=== PATIENT | female | born 1965 | race Caucasian/White ===

== ENCOUNTER → 2019-11-20 11:45 | Outpatient (BNVA) | payer BC, SELFPAY | PROVIDERS: Family Provider Family Medicine; PCP Family Medicine; Visit Provider Nurse Practitioner | DX: F41.1 Generalized anxiety disorder (principal); F41.0 Panic disorder [episodic paroxysmal anxiety]; F43.12 Post-traumatic stress disorder, chronic; F17.210 Nicotine dependence, cigarettes, uncomplicated; F90.1 Attention-deficit hyperactivity disorder, predominantly hyperactive type | CPT/HCPCS: 99213 ==

== ENCOUNTER → 2019-11-27 13:18 | Outpatient (BNVA) | payer BC, SELFPAY | PROVIDERS: Family Provider Family Medicine; PCP Family Medicine; Visit Provider Nurse Practitioner | DX: F43.12 Post-traumatic stress disorder, chronic (principal); F41.1 Generalized anxiety disorder; F41.0 Panic disorder [episodic paroxysmal anxiety]; F17.210 Nicotine dependence, cigarettes, uncomplicated | CPT/HCPCS: 90832; 99213 ==

== ENCOUNTER → 2020-02-15 07:50 | Outpatient (BNVA) | payer BC, SELFPAY | PROVIDERS: Family Provider Family Medicine; PCP Family Medicine; Visit Provider Nurse Practitioner | DX: F41.0 Panic disorder [episodic paroxysmal anxiety] (principal); F41.1 Generalized anxiety disorder; F43.12 Post-traumatic stress disorder, chronic; F17.210 Nicotine dependence, cigarettes, uncomplicated | CPT/HCPCS: 99213 ==

== ENCOUNTER → 2020-06-21 08:13 | Outpatient (BNVA) | payer BC, SELFPAY | PROVIDERS: Family Provider Family Medicine; PCP Family Medicine; Visit Provider Nurse Practitioner | DX: F43.12 Post-traumatic stress disorder, chronic (principal); F41.1 Generalized anxiety disorder; F41.0 Panic disorder [episodic paroxysmal anxiety]; F17.210 Nicotine dependence, cigarettes, uncomplicated | CPT/HCPCS: 99213 ==

== ENCOUNTER → 2020-08-18 08:33 | Outpatient (BNVA) | payer BC, SELFPAY | PROVIDERS: Family Provider Family Medicine; PCP Family Medicine; Visit Provider Nurse Practitioner | DX: F43.12 Post-traumatic stress disorder, chronic (principal); F41.1 Generalized anxiety disorder; F41.0 Panic disorder [episodic paroxysmal anxiety]; F17.210 Nicotine dependence, cigarettes, uncomplicated; F90.0 Attention-deficit hyperactivity disorder, predominantly inattentive type | CPT/HCPCS: 99214 ==

== ENCOUNTER 2020-10-21 17:32 | Emergency (ER) | payer OTHER, SELFPAY ==
[2020-10-21 17:41] VITALS: BP 177/91; PULSE 96; RESP 24; TEMP 36.9; O2SAT 100; BMI 20.5
--- NOTE | 2020-10-21 17:52 | XRR_ITS ---
PROCEDURE INFORMATION: Exam: XR Chest, 1 View Exam date and time: 10/21/2020 6:18 PM Age: 54 years old Clinical indication: Shortness of breath; Patient HX: SOB, pain in right lower ribs TECHNIQUE: Imaging protocol: XR of the chest Views: 1 view. Total images: 1 COMPARISON: No relevant prior studies available. FINDINGS: Lungs: COPD/chronic bronchitis/emphysema. No visible active interstitial or alveolar airspace disease. Pleural spaces: Unremarkable. No pleural effusion. No pneumothorax. Heart/Mediastinum: Unremarkable. No cardiomegaly. Bones/joints: Unremarkable. XR/XR chest 1V portable [id number] IMPRESSION: Nonacute.
--- NOTE | 2020-10-21 17:53 | ECG_ITS ---
[facility] Test Date: 2020-10-21 Pat Name: Angelita Villarreal Department: Room: Gender: Female Strickler Attendant: : 1965 Requested By: Allison Kapoor Order Number: [id number] Ezekiel MD: Manuel Berger M.D. Measurements Intervals [place] Rate: 94 P: 59 CT: 174 QRS: 84 QRSD: 85 T: 72 QT: 343 QTc: 429 Interpretive Statements SINUS RHYTHM POSSIBLE ANTERIOR MYOCARDIAL INFARCTION [30 ms Q WAVE IN V3/V4, OR R < 0.2 mV IN V4], OF INDETERMINATE AGE No previous ECG available for comparison Electronically Signed On 10-22-2020 10:54:11 GAMER by Manuel Berger M.D. [id number] f
--- NOTE | 2020-10-21 19:00 | W.ED.SOB ---
HPI - SOB/Dyspnea General: Chief Complaint: Shortness of Breath/Dyspnea Stated Complaint: DIFFICULTY BREATHING Time Seen by Provider: 10/21/20 18:43 Source: patient and family (spouse) Mode of arrival: ambulatory Limitations: other (memory loss) History of Present Illness: HPI Narrative: Pleasant 54-year-old female patient presents to the emergency department with her spouse due to shortness of breath. She reports cannot catch my breath , states has progressively worsened over the past 3 weeks. She reports nothing makes it better with exception of laying down when she goes to bed at night. She reports exercise or completing ADLs do not worsen the shortness of breath. She reports pain in the bilateral lower ribs. She denies trauma or injury. States suffered stroke of the brain several years ago, is taking Adderall secondary to memory loss and ADHD. She has poor historian and is present to help with history of present illness and health history. She reports difficulty catching her breath since child but states past 3 weeks has been different. Worsening shortness of breath symptoms and complains of chest pain. She denies nausea vomiting, states thyroid is abnormal and has not taken thyroid medication in several weeks secondary to side effects. She reports cough that is worse in the morning with production of dark green sputum, states cough through the day is not productive. She does smoke cigarettes but has cut back. She denies wheezing, states nothing helps with shortness of breath including albuterol and other steroid inhalers, Benadryl or nasal spray. She also reports rash that has been present to the abdomen and torso x3 weeks, no change of medication. She was evaluated by her primary care provider at [facility] was encouraged to come to the emergency department due to shortness of breath and complaints of chest pain. She states her primary care provider was concerned she may have a blood clot in her lung. MD elicited complaint: shortness of breath, cough and chest pain Context: other (rash) Timing: intermittent and progressively worsening Severity: moderate Exacerbating factors: nothing Relieving factors: other (resting in bed at night) Associated symptoms: Reports chest congestion, chest pain, cough and rash; Deny abdominal pain, diaphoresis, fever(s), nausea, orthopnea, syncope or vomiting Treatment prior to arrival: none Review of Systems General: Reports: 10 or more systems reviewed and unremarkable except in HPI and below Const: Reports: fatigue and malaise; Denies: fever(s), chills or diaphoresis Eyes: Denies: change in vision, blurry vision, eye discomfort or eye redness ENMT: Denies: throat pain, dental pain, halitosis, disequilibrium, nasal discharge or nasal congestion Card: Reports: chest pain; Denies: syncope or orthopnea Resp: Reports: dyspnea, productive cough, non-productive cough and chest congestion GI: Denies: abdominal pain, nausea, vomiting, dysphagia, diarrhea, constipation or pain on defecation : Denies: flank pain, difficulty voiding, dysuria, urinary urgency or urinary incontinence Musc: Reports: joint pain (bilateral knees) and joint stiffness (bilateral knees); Denies: neck pain or back pain Skin/Breast: Reports: rash and pruritus; Denies: skin tenderness, changing lesions or changes in skin color Neuro: Denies: headache(s), weakness in extremities or behavioral changes Psych: Reports: anxiety, panic attacks, memory loss and difficulty concentrating; Denies: depression, hopelessness, visual hallucinations, auditory hallucinations, suicidal ideation or homicidal ideation Sunny/Lymph: Denies: easy bruising PFSH ED PFSH: Medical History Attention-deficit hyperactivity disorder, predominantly inattentive type Generalized anxiety disorder Nicotine dependence, cigarettes, uncomplicated Panic disorder [episodic paroxysmal anxiety] Post-traumatic stress disorder, chronic Social History Smoking and tobacco status: current every day smoker cigarettes Packs smoked per day: 1.5 Years cigarettes smoked: 33 Quit status (tobacco): has tried quititng Number of times tried to quit tobacco: 1 Second hand smoke exposure: Yes Physical Exam Const: COMMON NORMALS: no acute distress, average body habitus, patient oriented x3, no limitations, healthy appearing, alert and well nourished EXAM LIMITATIONS: no altered mental status and no physical limitations GENERAL APPEARANCE: cooperative, comfortable, well kempt, well developed, anxious, well hydrated and other (noted taking in deep breaths intermittently); not ill appearing and not frail appearing NUTRITIONAL APPEARANCE: thin ORIENTATION/CONSCIOUSNESS: Yes awake, Yes oriented to person, Yes oriented to place and Yes oriented to time; not confused and not patient obtunded HENMT: COMMON NORMALS: normocephalic, atraumatic, Normal external nose present and moist oral mucous membranes HEAD & SCALP: normal to inspection, normocephalic and atraumatic FACE & SINUS: normal facial exam, sinuses nontender and face symmetric NOSE: Normal external nose present MOUTH: Normal oral and palatal mucosa present, lip normal and tongue normal; no drooling and no muffled voice THROAT: posterior oropharynx normal and uvula midline Eye: COMMON NORMALS: Equal, round and reactive pupils present and EOMs intact bilaterally GENERAL EYE: appearance normal, both eyes and all related structures PUPIL: Yes Equal, round and reactive pupils present Neck/C-Spine: COMMON NORMALS: full ROM and no lymphadenopathy GENERAL: Yes normal visual inspection and Yes trachea midline CERVICAL SPINE: Yes cervical ROM normal Lymph: LYMPHATIC: no lymphadenopathy noted Chest: COMMONS NORMALS: normal inspection of the chest and normal palpation of entire chest wall CHEST: No abnormal inspection of the chest and No localized rib tenderness with anteroposterior compression Resp: COMMON NORMALS: normal respiratory effort, No retractions, No use of accessory muscles and clear to auscultation bilaterally EFFORT & INSPECTION: Yes able to speak in complete sentences, Yes symmetric chest movement, No tachypneic, No respiratory distress, No pursed lip breathing, No labored, No Actively coughing and Yes other (takes deep breaths intermittently) AUSCULTATION: clear to auscultation bilaterally, no rhonchi, no wheezes and lung sounds not diminished Cardio: COMMON NORMALS: regular rate, regular rhythm, S1 normal heart sound present, S2 normal heart sound present and Peripheral pulses 2+ throughout PALPATION: normal PMI RATE: regular rate RHYTHM: regular rhythm HEART SOUNDS: S1 normal heart sound present and S2 normal heart sound present PERIPHERAL PULSES: Peripheral pulses 2+ throughout GI: COMMON NORMALS: Normal to inspection, nondistended, normoactive bowel sounds present, Soft to palpation and non-tender INSPECTION: Yes normal to inspection, No abdominal wall ecchymosis, No central obesity and No visible herniation PALPATION: Yes Soft to palpation : COMMON NORMALS: Yes no CVA tenderness BLADDER/KIDNEY EXAM: Yes no CVA tenderness Back/Pelvis: COMMON NORMALS: no CVA tenderness, thoracic and lumbar spine normal to inspection, no thoracic nor lumbar tenderness, thoraco-lumbar ROM normal and straight leg raise negative bilaterally Extremity: COMMON NORMALS: normal to inspection, full ROM, capillary refill normal, no joint enlargement, no clubbing, cyanosis or edema, no calf tenderness and no pedal edema GENERAL: Yes normal exam except as noted Neuro: COMMON NORMALS: patient oriented x3 and no focal motor deficits SENSORIUM/ORIENTATION: Yes alert, Yes oriented to person, Yes oriented to place and Yes oriented to time SPEECH: speech normal GAIT: Yes Normal gait present MOTOR EXAM: 5/5 motor strength present throughout and Pronator motor function not present Psych: COMMON NORMALS: mental status grossly normal, Normal thought process present and cooperative APPEARANCE: Yes well kempt ACTIVITY/MOTOR BEHAVIOR: Yes appropriate eye contact THOUGHT PROCESS: Normal thought process present Skin: COMMON NORMALS: turgor normal GENERAL SKIN EXAM: elasticity normal and turgor normal RASHES: rashes noted (flat macular rash to the torso and abdomen) HAIR: normal NAILS: normal Course Vital Signs: Vital signs: Vital Signs Temperature 98.5 F 10/21/20 17:41 Pulse Rate 85 10/21/20 21:58 Respiratory Rate 19 H 10/21/20 20:37 Blood Pressure 165/92 10/21/20 20:37 Pulse Oximetry 98 10/21/20 21:58 MDM - SOB/Dyspnea MDM Narrative: Medical decision making narrative: 54-year-old female patient presents to the emergency department for possible PE secondary to inability to catch her breath, she was sent to the ED by the recommendation of her primary care provider. CTA of the chest did not reveal pulmonary emboli or acute findings. Chest x-ray did note COPD/chronic bronchitis/emphysema, she continues to smoke. Troponin series without elevation, EKG without ST elevation or depression. Rashes noted upon exam and has been present for 3 weeks, Benadryl was administered, CRP and ESR within normal range; she stopped taking her thyroid medication secondary to side effects but also was taking antidepressants/antianxiety medication at that time in which she also stopped. TSH was noted to be abnormal, she was encouraged to take medication daily, new prescription was provided 50 mcg daily dose. Patient was administered Toradol for pain which stopped rib pain and episodes of deep breathing. I am suspicious patient has COPD with potential exacerbation; she states has never been diagnosed with COPD or chronic bronchitis, or denies previous PFT study. Patient was placed on prednisone with referral to dermatology due to rash, albuterol inhaler was not prescribed as she has this at home and states does not help. Differential Diagnosis: Shortness of Breath Differential Diagnosis: Likely acute exacerbation of chronic obstructive airways disease, community acquired pneumonia and pulmonary embolism Lab Data: Labs: Lab Results 10/21/20 10/21/20 10/21/20 Range/Units 19:00 19:00 19:00 WBC 8.2 (4.0-10.0) 10^3/ uL RBC 4.45 (4.1-5.3) 10^6/u L Hgb 13.9 (11.5-15.3) g/dL Hct 41.3 (37.0-47.0) % MCV 92.8 (81-99) fL MCH 31.2 (28.0-34.0) pg MCHC 33.7 (30.0-36.0) g/dL RDW 13.2 (12.1-15.1) % Plt Count 250 (130-400) 10^3/c mm MPV 9.1 (7.4-10.4) fL Neut % (Auto) 67.7 % Lymph % (Auto) 25.4 % Cameron % (Auto) 4.3 % Eos % (Auto) 1.5 % Baso % (Auto) 0.9 % Neut # (Auto) 5.52 (1.8-7.7) 10^3/u L Lymph # (Auto) 2.1 (0.8-4.8) 10^3/u L Cameron # (Auto) 0.4 (0.2-0.9) 10^3/u L Eos # (Auto) 0.1 (0.0-0.8) 10^3/u L Baso # (Auto) 0.1 (0.0-0.1) 10^3/u L Nucleated RBC % (a uto) 0 % Nucleated RBCs # 0.0 /100WBC ESR (0-15) mm/hr D-Dimer (0-0.59) ug/mIFE U Sodium 140 (136-145) mmol/L Potassium 3.6 (3.5-5.1) mmol/L Chloride 105 (98-107) mmol/L Carbon Dioxide 22 (22-29) mmol/L Anion Gap 16.6 (5-19) BUN 8 (6-20) mg/dL Creatinine 0.7 (0.5-0.9) mg/dL GFR Calculation 86.6 L (90-130) mL/min Glucose 79 (65-115) mg/dL Calculated Osmolal ity 287 (285-295) mOsm/k g Calcium 9.1 (8.5-10.5) mg/dL Total Bilirubin 0.5 (0.15-1.2) mg/dL AST 19 (0-32) U/L ALT 16 (0-33) U/L Alkaline Phosphata se 78 (35-105) IU/L Troponin T Baselin e 8 (0-10) ng/L Troponin T 120 Min [place] (0-10) ng/L Delta Troponin T (0-10) ABS# C-Reactive Protein 4.7 (0.0-4.9) mg/L Total Protein 6.9 (6.6-8.7) g/dL Albumin 4.6 (3.5-5.2) g/dL Globulin 2.3 (1.3-4.6) g/dL TSH 13.43 H (0.27-4.20) uIU/ mL Free T4 0.97 (0.82-1.77) ng/d L 10/21/20 10/21/20 10/21/20 Range/Units 19:00 19:00 21:00 WBC (4.0-10.0) 10^3/ uL RBC (4.1-5.3) 10^6/u L Hgb (11.5-15.3) g/dL Hct (37.0-47.0) % MCV (81-99) fL MCH (28.0-34.0) pg MCHC (30.0-36.0) g/dL RDW (12.1-15.1) % Plt Count (130-400) 10^3/c mm MPV (7.4-10.4) fL Neut % (Auto) % Lymph % (Auto) % Cameron % (Auto) % Eos % (Auto) % Baso % (Auto) % Neut # (Auto) (1.8-7.7) 10^3/u L Lymph # (Auto) (0.8-4.8) 10^3/u L Cameron # (Auto) (0.2-0.9) 10^3/u L Eos # (Auto) (0.0-0.8) 10^3/u L Baso # (Auto) (0.0-0.1) 10^3/u L Nucleated RBC % (a uto) % Nucleated RBCs # /100WBC ESR 9 (0-15) mm/hr D-Dimer 0.35 (0-0.59) ug/mIFE U Sodium (136-145) mmol/L Potassium (3.5-5.1) mmol/L Chloride (98-107) mmol/L Carbon Dioxide (22-29) mmol/L Anion Gap (5-19) BUN (6-20) mg/dL Creatinine (0.5-0.9) mg/dL GFR Calculation (90-130) mL/min Glucose (65-115) mg/dL Calculated Osmolal ity (285-295) mOsm/k g Calcium (8.5-10.5) mg/dL Total Bilirubin (0.15-1.2) mg/dL AST (0-32) U/L ALT (0-33) U/L Alkaline Phosphata se (35-105) IU/L Troponin T Baselin e (0-10) ng/L Troponin T 120 Min [place] 7.99 (0-10) ng/L Delta Troponin T -0.01 L (0-10) ABS# C-Reactive Protein (0.0-4.9) mg/L Total Protein (6.6-8.7) g/dL Albumin (3.5-5.2) g/dL Globulin (1.3-4.6) g/dL TSH (0.27-4.20) uIU/ mL Free T4 (0.82-1.77) ng/d L Imaging Data^: CXR: Radiologist's impression: [address] [address] XRay Report Signed Patient: Angelita Villarreal Unit #: [id number] : 1965 Age/Sex: 54 / F ADM Date: 10/21/20 Loc: ER Room/Bed: Attending Dr: Ordering Provider/Ordering MD: Allison Padron Date of Service: 10/21/20 Procedure(s): XR chest 1V portable [id number] Accession Number(s): [id number] Report Number: [id number] PROCEDURE INFORMATION: Exam: XR Chest, 1 View Exam date and time: 10/21/2020 6:18 PM Age: 54 years old Clinical indication: Shortness of breath; Patient HX: SOB, pain in right lower ribs TECHNIQUE: Imaging protocol: XR of the chest Views: 1 view. Total images: 1 COMPARISON: No relevant prior studies available. FINDINGS: Lungs: COPD/chronic bronchitis/emphysema. No visible active interstitial or alveolar airspace disease. Pleural spaces: Unremarkable. No pleural effusion. No pneumothorax. Heart/Mediastinum: Unremarkable. No cardiomegaly. Bones/joints: Unremarkable. XR/XR chest 1V portable [id number] IMPRESSION: Nonacute. Dictated By: Cole Salas Signed By: Cole Salas Signed Date/Time: 10/21/201828 DD/ 27 CT Chest: Radiologist's impression: [address] [address] [address] Scan Report Signed Patient: Angelita Villarreal Unit #: [id number] : 1965 Age/Sex: 54 / F ADM Date: 10/21/20 Loc: ER Room/Bed: Attending Dr: Ordering Provider/Ordering MD: Allison Padron Date of Service: 10/21/20 Procedure(s): CT angio chest PE protcl [id number] Accession Number(s): [id number] Report Number: [id number] PROCEDURE INFORMATION: Exam: CT Angiography Chest With Contrast Exam date and time: 10/21/2020 7:14 PM Age: 54 years old Clinical indication: Shortness of breath; Patient HX: Worsening SOB x 3 weeks; Additional info: SOB, can't catch her breath TECHNIQUE: Imaging protocol: Computed tomographic angiography of the chest with contrast. 3D rendering (Not supervised by radiologist): MIP and/or 3D reconstructed images were created by the technologist. Total images: 850 Radiation optimization: All CT scans at this facility use at least one of these dose optimization techniques: automated exposure control; mA and/or kV adjustment per patient size (includes targeted exams where dose is matched to clinical indication); or iterative reconstruction. Contrast material: OMNI 350; Contrast volume: 70 ml; Contrast route: INTRAVENOUS (IV); COMPARISON: CR XR chest 1V portable [id number] 10/21/2020 6:12 PM RADIATION DOSE METRICS: Total DLP (mGy-cm): 403.88 FINDINGS: Pulmonary arteries: No visible evidence of pulmonary embolism/pulmonary arterial thrombus. Aorta: The thoracic aorta is nonaneurysmal. No visible intimal flap or dissection. Minimal arterial sclerotic disease. Lungs: No visible active interstitial or alveolar airspace disease. COPD/chronic bronchitis. Mild bullous emphysema. Pleural spaces: Unremarkable. No pneumothorax. No pleural effusion. Heart: Left ventricular hypertrophy. No visible significant coronary disease. No visible pericardial effusion. No cardiomegaly. Lymph nodes: No visible active mediastinal or hilar lymphadenopathy. Kidneys and ureters: Small 9 mm simple cortical cyst superior pole right kidney. No follow-up recommended. Bones/joints: No visible active or acute osseous pathology. Soft tissues: Unremarkable. CT/CT angio chest PE protcl [id number] IMPRESSION: No visible evidence of pulmonary embolism/pulmonary arterial thrombus. COMMENTS: Consistent with the [employer]'s Incidental Findings Committee white paper (J Am Clive Radiol 2018): Any incidental renal lesion less than 1 cm or classified as too small to characterize, or any incidental cystic renal lesion characterized as simple-appearing, is likely benign. No follow-up imaging is recommended for these lesions per consensus recommendations based on imaging criteria. Radiation Dose CTDIVOL = (mGy): DLP = 403.88 (mGy-cm) Dictated By: Cole Salas Signed By: Cole Salas Signed Date/Time: 10/21/202037 DD/ 36 Discharge Plan Discharge Patient Disposition: Home Clinical Impression: Pleurisy, Rash, Breath shortness Hypothyroidism Qualifiers: Hypothyroidism type: acquired Qualified Code(s): E03.9 - Hypothyroidism, unspecified Condition: Stable Prescriptions: New levothyroxine 50 mcg tablet 50 mcg PO DAILY Qty: 20 RF: 0 naproxen 500 mg tablet 500 mg PO BID PRN (Reason: pain) Qty: 20 RF: 0 prednisone 20 mg tablet 20 mg PO BID 5 Days Qty: 10 RF: 0 Discontinued levothyroxine 75 mcg capsule 75 mcg PO DAILY RF: 0 No Action dextroamphetamine-amphetamine [Adderall XR] 20 mg capsule,extended release 24hr 20 mg PO DAILY 30 Days Qty: 30 RF: 0 dextroamphetamine-amphetamine [Adderall XR] 20 mg capsule,extended release 24hr 20 mg PO DAILY 30 Days Qty: 30 RF: 0 Discharge Orders: Discharge ED (Routine); Ordered 10/21/20 Ordered By: Allison Padron Referrals: John Barroso MD [Primary Care Provider] - Discharge Diet: Usual diet Discharge Activity: Resume usual activity Patient Instructions: Pleurisy (ED), Hypothyroidism (ED), Acute Rash (ED), Dyspnea (ED) Activity Restrictions/Additional Instructions: Case management will be contacting you with a follow-up appointment with dermatology for rash Return to the emergency department if you develop worsening/concerning symptoms Continue follow-up with your primary care provider, repeat thyroid test will be needed in 8 to 12 weeks, take thyroid medication daily, on empty stomach, medication must be taken daily. Take prednisone and naproxen with food to avoid stomach upset Coding Level of Care Code ED Mechanic Foreman for Chg Fwd Exam Comprehensive
--- NOTE | 2020-10-21 19:06 | CTR_ITS ---
PROCEDURE INFORMATION: Exam: CT Angiography Chest With Contrast Exam date and time: 10/21/2020 7:14 PM Age: 54 years old Clinical indication: Shortness of breath; Patient HX: Worsening SOB x 3 weeks; Additional info: SOB, can't catch her breath TECHNIQUE: Imaging protocol: Computed tomographic angiography of the chest with contrast. 3D rendering (Not supervised by radiologist): MIP and/or 3D reconstructed images were created by the technologist. Total images: 850 Radiation optimization: All CT scans at this facility use at least one of these dose optimization techniques: automated exposure control; mA and/or kV adjustment per patient size (includes targeted exams where dose is matched to clinical indication); or iterative reconstruction. Contrast material: OMNI 350; Contrast volume: 70 ml; Contrast route: INTRAVENOUS (IV); COMPARISON: CR XR chest 1V portable [id number] 10/21/2020 6:12 PM RADIATION DOSE METRICS: Total DLP (mGy-cm): 403.88 FINDINGS: Pulmonary arteries: No visible evidence of pulmonary embolism/pulmonary arterial thrombus. Aorta: The thoracic aorta is nonaneurysmal. No visible intimal flap or dissection. Minimal arterial sclerotic disease. Lungs: No visible active interstitial or alveolar airspace disease. COPD/chronic bronchitis. Mild bullous emphysema. Pleural spaces: Unremarkable. No pneumothorax. No pleural effusion. Heart: Left ventricular hypertrophy. No visible significant coronary disease. No visible pericardial effusion. No cardiomegaly. Lymph nodes: No visible active mediastinal or hilar lymphadenopathy. Kidneys and ureters: Small 9 mm simple cortical cyst superior pole right kidney. No follow-up recommended. Bones/joints: No visible active or acute osseous pathology. Soft tissues: Unremarkable. CT/CT angio chest PE protcl [id number] IMPRESSION: No visible evidence of pulmonary embolism/pulmonary arterial thrombus. COMMENTS: Consistent with the [employer] [employer]'s Incidental Findings Committee white paper (J Am Clive Radiol 2018): Any incidental renal lesion less than 1 cm or classified as too small to characterize, or any incidental cystic renal lesion characterized as simple-appearing, is likely benign. No follow-up imaging is recommended for these lesions per consensus recommendations based on imaging criteria. Radiation Dose CTDIVOL = (mGy): DLP = 403.88 (mGy-cm)
[2020-10-21 19:09] VITALS: BP 162/96; PULSE 73; O2SAT 100
[2020-10-21 19:13] LABS: Basophils # 0.1 10^3/uL (0.0-0.1); Basophils % 0.9 %; Eosinophils # 0.1 10^3/uL (0.0-0.8); Eosinophils % 1.5 %; Hematocrit 41.3 % (37.0-47.0); Hemoglobin 13.9 g/dL (11.5-15.3); Lymphocytes # 2.1 10^3/uL (0.8-4.8); Lymphocytes % 25.4 %; Mean Corpuscular HGB Conc 33.7 g/dL (30.0-36.0); Mean Corpuscular Hemoglobin 31.2 pg (28.0-34.0); Mean Corpuscular Volume 92.8 fL (81-99); Mean Platelet Volume 9.1 fL (7.4-10.4); Monocytes # 0.4 10^3/uL (0.2-0.9); Monocytes % 4.3 %; Neutrophils # 5.52 10^3/uL (1.8-7.7); Neutrophils % 67.7 %; Nucleated Red Blood Cells % 0 %; Platelet Count 250 10^3/cmm (130-400); Red Blood Count 4.45 10^6/uL (4.1-5.3); Red Cell Distribution Width 13.2 % (12.1-15.1); White Blood Count 8.2 10^3/uL (4.0-10.0)
[2020-10-21] MEDS: diphenhydrAMINE 50 mg/mL SDV 1mL 25 MG IVP (19:26)
[2020-10-21 19:36] LABS: Troponin(5th) Baseline 8 ng/L (0-10)
[2020-10-21 19:46] LABS: Alanine Aminotransferase 16 U/L (0-33); Albumin Level 4.6 g/dL (3.5-5.2); Alkaline Phosphatase 78 IU/L (35-105); Anion Gap 16.6 (5-19); Aspartate Amino Transferase 19 U/L (0-32); Blood Urea Nitrogen 8 mg/dL (6-20); C Reactive Protein 4.7 mg/L (0.0-4.9); Calcium 9.1 mg/dL (8.5-10.5); Carbon Dioxide 22 mmol/L (22-29); Chloride 105 mmol/L (98-107); Free T4 Free Thyroxine 0.97 ng/dL (0.82-1.77); Globulin 2.3 g/dL (1.3-4.6); Glomerular Filtration Rate 86.6 mL/min (90-130); Glucose 79 mg/dL (65-115); Osmolality Calculated 287 mOsm/kg (285-295); Potassium 3.6 mmol/L (3.5-5.1); Sodium 140 mmol/L (136-145); Thyroid Stimulating Hormone 13.43 uIU/mL (0.27-4.20); Total Bilirubin 0.5 mg/dL (0.15-1.2); Total Protein 6.9 g/dL (6.6-8.7)
[2020-10-21 19:50] LABS: D Dimer 0.35 ug/mIFEU (0-0.59)
[2020-10-21] MEDS: iohexol 350 mg/mL 100 mL Btl IV (20:06)
[2020-10-21 20:09] LABS: Erythrocyte Sedimentation Rate 9 mm/hr (0-15)
[2020-10-21] MEDS: acetaminophen 500 mg Tablet 1000 MG PO (20:36)
[2020-10-21 20:37] VITALS: BP 165/72; BP 165/92; PULSE 72; PULSE 77; RESP 18; RESP 19; O2SAT 100
--- NOTE | 2020-10-21 20:54 | PC.NURSE ---
EKG done at 2030 and shown to ER doctor
[2020-10-21] MEDS: ketorolac 30 mg/mL INJ 15 MG IVP (20:57)
[2020-10-21 21:27] LABS: Troponin 5 2HR 7.99 ng/L (0-10); Troponin 5 2HR Delta -0.01 ABS# (0-10)
[2020-10-21] MEDS: predniSONE 20 mg Tablet PO (21:55)
[2020-10-21] MEDS: naproxen 500 mg Tablet PO (21:55)
[2020-10-21 21:58] VITALS: PULSE 85; O2SAT 98
--- NOTE | 2020-10-21 22:00 | PC.NURSE ---
pt dc home with naproxen
--- NOTE | 2020-10-21 23:53 | ECG_ITS ---
[facility] Test Date: 2020-10-21 Pat Name: Angelita Villarreal Department: Room: Gender: Female Wallpaper Inspector: : 1965 Requested By: Allison Kapoor Order Number: [id number] Ezekiel MD: Manuel Berger M.D. Measurements Intervals [place] Rate: 70 P: 83 [place]: 172 QRS: 84 QRSD: 89 T: 80 QT: 414 QTc: 449 Interpretive Statements SINUS RHYTHM Compared to ECG 10/21/2020 17:39:41 No significant changes Electronically Signed On 10-22-2020 11:02:40 PLASTICS SHEET FINISHING PRESS OPERATOR by Manuel Berger M.D. [id number]
--- NOTE | 2020-10-24 15:43 | DCPLANNER ---
Addendum entered by Clarisa Saxena 10/27/20 13:38: flight kitchen manager called dermatology clinic on 10.26.20 and left a voicemail for clinic to return rehabilitation case coordinator phone call to refer patient to the clinic. Original Note: flight kitchen manager had message to schedule a follow up appointment for patient with dermatology. flight kitchen manager called the dermatology clinic, unable to speak with anyone at the clinic at this time, left a voicemail for clinic to return rehabilitation case coordinator phone call. flight kitchen manager will call clinic on 10.25.20 for appointment information.
--- NOTE | 2020-10-27 13:43 | DCPLANNER ---
Addendum entered by Clarisa Saxena 10/27/20 14:24: Patients appointment has been rescheduled for Saturday, October 31, [address] Huffman. Original Note: digital marketing program manager called the dermatology clinic on 10.27.20, a follow up appointment was scheduled for Sunday, February 21, [address] at 9:[address] Huffman. Clinic will call patient with appointment information.
--- NOTE | 2020-12-01 15:37 | DCPLANNER ---
Patient had a follow up appointment scheduled with dermatology - appointment was rescheduled.
== END 2020-10-21 22:01 | disposition home or self-care (01) ==
PROVIDERS: Emergency Provider Nurse Practitioner Family; PCP Family Medicine
DX: R06.02 Shortness of breath (principal); R09.1 Pleurisy; R21 Rash and other nonspecific skin eruption; E03.9 Hypothyroidism, unspecified; F17.210 Nicotine dependence, cigarettes, uncomplicated
CPT/HCPCS: 12345; 36415; 71045; 71275; 80053; 84439; 84443; 84484; 85025; 85378; 85651; 86140; 93005; 96374; 96375; 99283; 99284; 99291; J1200; J1885; J7512; Q9967

== ENCOUNTER → 2020-11-04 15:07 | Outpatient (BNVA) | payer OTHER, SELFPAY | PROVIDERS: PCP Family Medicine; Visit Provider Family Medicine | DX: Z11.52 Encounter for screening for COVID-19 (principal) | CPT/HCPCS: 87635 ==

== ENCOUNTER 2020-11-09 07:23 | Outpatient (CLI) | payer OTHER, SELFPAY ==
--- NOTE | 2020-11-09 13:55 | PFTS_ITS ---
Date of Study:11/09/20 Date of Dictation: MECHANICS: Forced vital capacity (FVC) is normal. Forced expiratory volume in one second (FEV1) is normal. FEV1/FVC is normal. FLOW VOLUME LOOP: Normal. LUNG VOLUMES: Not performed DIFFUSING CAPACITY FOR CARBON MONOXIDE: Not performed INTERPRETATION: The prebronchodilator spirometry is normal. MTDD
== END 2020-11-09 07:24 | disposition home or self-care (01) ==
LOC: RT 07:23
PROVIDERS: PCP Family Medicine; Visit Provider Family Medicine
DX: Z20.822 Contact with and (suspected) exposure to COVID-19 (principal)
CPT/HCPCS: 94010

== ENCOUNTER → 2020-11-15 08:19 | Outpatient (BNVA) | payer OTHER, SELFPAY | PROVIDERS: PCP Family Medicine; Visit Provider Nurse Practitioner | DX: F43.12 Post-traumatic stress disorder, chronic (principal); F41.1 Generalized anxiety disorder; F41.0 Panic disorder [episodic paroxysmal anxiety]; F17.210 Nicotine dependence, cigarettes, uncomplicated; F90.0 Attention-deficit hyperactivity disorder, predominantly inattentive type | CPT/HCPCS: 99214 ==

== ENCOUNTER 2021-01-06 12:12 | Outpatient (CLI) | payer OTHER, SELFPAY ==
[2021-01-06 12:47] LABS: Basophils % 0.3 %; Eosinophils % 0.1 %; Hematocrit 41.3 % (37.0-47.0); Lymphocytes # 0.8 10^3/uL (0.8-4.8); Lymphocytes % 9.7 %; Mean Corpuscular HGB Conc 33.9 g/dL (30.0-36.0); Mean Corpuscular Hemoglobin 32.3 pg (28.0-34.0); Mean Corpuscular Volume 95.2 fL (81-99); Mean Platelet Volume 9.2 fL (7.4-10.4); Monocytes # 0.1 10^3/uL (0.2-0.9); Monocytes % 1.3 %; Neutrophils # 7.67 10^3/uL (1.8-7.7); Neutrophils % 88.3 %; Nucleated Red Blood Cells % 0 %; Platelet Count 236 10^3/cmm (130-400); Red Blood Count 4.34 10^6/uL (4.1-5.3); White Blood Count 8.7 10^3/uL (4.0-10.0)
[2021-01-06 14:27] LABS: Alanine Aminotransferase 19 U/L (0-33); Albumin Level 4.8 g/dL (3.5-5.2); Alkaline Phosphatase 64 IU/L (35-105); Anion Gap 14.2 (5-19); Aspartate Amino Transferase 16 U/L (0-32); Blood Urea Nitrogen 14 mg/dL (6-20); Calcium 8.8 mg/dL (8.5-10.5); Carbon Dioxide 25 mmol/L (22-29); Chloride 102 mmol/L (98-107); Free T4 Free Thyroxine 1.45 ng/dL (0.82-1.77); Globulin 1.9 g/dL (1.3-4.6); Glomerular Filtration Rate 86.2 mL/min (90-130); Glucose 115 mg/dL (65-115); NT Pro B Type Natriuretic Pept 164 pg/mL (0-125); Osmolality Calculated 285 mOsm/kg (285-295); Potassium 4.2 mmol/L (3.5-5.1); Sodium 137 mmol/L (136-145); Thyroid Stimulating Hormone 0.96 uIU/mL (0.27-4.20); Total Bilirubin 0.3 mg/dL (0.15-1.2); Total Protein 6.7 g/dL (6.6-8.7)
[2021-01-09 17:43] LABS: Alternaria Alternata (M6) Ige <0.10 kU/L; Alternaria Class 0; Bermuda Class 0; Bermuda Grass (G2) Ige <0.10 kU/L; Cat Dander (E1) Ige <0.10 kU/L; Cat Dander Class 0; Common Ragweed (Short) (W1) Ig <0.10 kU/L; D. Farinae Class 0; Dermatophagoides Class 0; Dermatophagoides Farinae (D2) <0.10 kU/L; Dermatophagoides Pteronyssinus <0.10 kU/L; Dog Dander (E5) Ige <0.10 kU/L; Dog Dander Class 0; Elm (T8) Ige <0.10 kU/L; Elm Class 0; English Plantain (W9) Ige <0.10 kU/L; English Plantain Class 0; House Dust (Greer) (H1) Ige <0.10 kU/L; House Dust (Hollister- Stier) <0.10 kU/L; House Dust Class 0; Immunoglobulin E 17 kU/L (<OR=114); Immunoglobulin E 18 kU/L (<OR=114); Johnson Grass (G10) Ige <0.10 kU/L; Johnson Grass Cl 0; June Grass Class 0; June Grass(Kentucky Blue) (G8) <0.10 kU/L; Lamb'S Quarters (Goose Foot) <0.10 kU/L; Lamb'S Quarters Class 0; Maple (Box Elder) (T1) Ige <0.10 kU/L; Maple Class 0; Meadow Fescue (G4) Ige <0.10 kU/L; Meadow Fescue Class 0; Mucor Racemosus Class 0; Oak (T7) Ige <0.10 kU/L; Oak Class 0; Orchard Grass (Cocksfoot) (G3) <0.10 kU/L; Penicillium Class 0; Penicillium Notatum (M1) Ige <0.10 kU/L; Perennial Rye Grass (G5) Ige <0.10 kU/L; Perennial Rye Grass Class 0; Ragweeed Class 0; Rough Marsh Elder (W16) Ige <0.10 kU/L; Rough Marsh Elder Class 0; Sweet Vernal Class 0; Sweet Vernal Grass (G1) Ige <0.10 kU/L; Timothy Grass (G6) Ige <0.10 kU/L; Timothy Grass Class 0
[2021-01-10 22:16] LABS: Aspergillus Fumigatus, Igg Ab, 13.7 mg/L (<=102)
== END 2021-01-06 12:13 | disposition home or self-care (01) ==
PROVIDERS: PCP Internal Medicine; Visit Provider Internal Medicine Pulmonary Disease
DX: J45.909 Unspecified asthma, uncomplicated (principal)
CPT/HCPCS: 36415; 80053; 82785; 83880; 84439; 84443; 85025; 86003

== ENCOUNTER → 2021-02-14 08:06 | Outpatient (BNVA) | payer OTHER, SELFPAY | PROVIDERS: PCP Internal Medicine; Visit Provider Nurse Practitioner | DX: F43.12 Post-traumatic stress disorder, chronic (principal); F41.1 Generalized anxiety disorder; F41.0 Panic disorder [episodic paroxysmal anxiety]; F17.210 Nicotine dependence, cigarettes, uncomplicated; F90.0 Attention-deficit hyperactivity disorder, predominantly inattentive type | CPT/HCPCS: 99214 ==

== ENCOUNTER 2021-02-22 14:26 | Outpatient (CLI) | payer OTHER, SELFPAY ==
--- NOTE | 2021-02-22 14:37 | MM_ITS ---
WS: [id number] BILATERAL SCREENING DIGITAL MAMMOGRAM WITH CAD HISTORY: SCREENING COMPARISON: 10/20/2018 Bilateral CC and MLO views submitted. Computer aided detection analyzed. Breast composition: There are scattered areas of fibroglandular density. No suspicious masses, microc alcifications or architectural distortion. MM/[place] [id number] IMPRESSION: BI-RADS: 1-Negative FOLLOW UP: 1 Year Follow-up
== END 2021-02-22 14:27 | disposition home or self-care (01) ==
LOC: RADSHAW 14:31
PROVIDERS: PCP Internal Medicine; Visit Provider Internal Medicine
DX: Z12.31 Encounter for screening mammogram for malignant neoplasm of breast (principal)
CPT/HCPCS: 77067

== ENCOUNTER 2021-11-29 12:12 | Outpatient (CLI) | payer OTHER, SELFPAY ==
--- NOTE | 2021-11-29 13:00 | XR_ITS ---
WS: [id number] XR knee RT 1-2V [id number] REASON FOR EXAM: BILAT KNEE PAIN FINDINGS: No fracture or focal bone lesion. The medial and lateral knee joint spaces are intact and relatively well-preserved. No significant sub chondral bone abnormality. The patellofemoral joint space is intact and relatively well-preserved. No significant subchondral carmine ne abnormality. No soft tissue abnormality XR/XR knee RT 1-2V [id number] IMPRESSION: No significant abnormality.
--- NOTE | 2021-11-29 13:00 | XR_ITS ---
WS: [id number] XR knee LT 1-2V [id number] REASON FOR EXAM: BILAT KNEE PAIN FINDINGS: No fracture or focal bone lesion. The medial and lateral knee joint spaces are intact and relatively well-preserved. Is intact and well preserved. No significant subchondral bony abnormality is identified. There is no significant subcho ndral bony abnormality. The patellofemoral joint space No soft tissue abnormality. XR/XR knee LT 1-2V [id number] IMPRESSION: No significant abnormality.
== END 2021-11-29 12:13 | disposition home or self-care (01) ==
LOC: RAD 12:17
PROVIDERS: PCP Internal Medicine; Visit Provider Family Medicine
DX: M25.562 Pain in left knee (principal); M25.561 Pain in right knee
CPT/HCPCS: 73560

== ENCOUNTER 2021-12-19 08:28 | Outpatient (CLI) | payer OTHER, SELFPAY ==
--- NOTE | 2021-12-19 08:37 | CT_ITS ---
WS: [id number] LDCT LUNG CANCER SCREENING TECHNIQUE: Noncontrast CT of the chest with coronal and sagittal reformatted images. CLINICAL INFORMATION: NICOTINE DEPENDENCE COMPARISON: CTA 10/21/20 DLP: 79.81 mGy.cm DIvol: Mean CTDIvol: 1.60 (mGy) All CT scans at [facility] use at least one of these dose optimization techniques: automat ed exposure control; mA and/or kV adjustment per patient size (includes targeted exams where dose is matched to clinical indication); or iterative reconstruction. FINDINGS: Mild chronic emphysematous changes. No acute pulmonary infiltrates. No focal pneumonia or pleural flu id. Normal caliber thoracic aorta. No mediastinal or hilar lymphadenopathy. Adrenal glands are normal . Normal GE junction. Mild thoracic curve. A few calcified granulomas. No suspicious pulmonary opacit ies. CT/CT lung screening [id number] IMPRESSION: LUNG-RADS: 1-Negative FOLLOW UP: 12 Month: Continue annual screening with LDCT
== END 2021-12-19 08:29 | disposition home or self-care (01) ==
LOC: RAD 08:32
PROVIDERS: Visit Provider Family Medicine
DX: Z12.2 Encounter for screening for malignant neoplasm of respiratory organs (principal); F17.210 Nicotine dependence, cigarettes, uncomplicated
CPT/HCPCS: 71271

== ENCOUNTER 2022-01-12 10:33 | Outpatient (CLI) | payer OTHER, SELFPAY ==
--- NOTE | 2022-01-12 10:49 | MR_ITS ---
WS: [id number] MRI LEFT KNEE NONCONTRAST TECHNIQUE: Axial PD, coronal PD fat sat, coronal PD, sagittal PD, and sagittal PD fat-sat images obta ined. CLINICAL INFORMATION: PAIN IN LEFT KNEE COMPARISON: None. FINDINGS: Distal quadriceps and patella tendons are intact. Slightly hypertrophic patella. Normal ACL and PCL. Prepatellar and infrapatellar soft tissue edema. Normal lateral meniscus. Longitudinal horizontal tea r involving the posterior horn medial meniscus extending to the meniscal root. Thinning of the medial meniscus. Lobulated popliteal cyst measuring 1.1 x 1.7 x 4.4 cm AP by transverse by craniocaudal. Mild chondrom alacia patella. Normal medial and lateral patellar retinaculum. No subchondral edema. Normal medial a nd lateral collateral ligaments. Mild chondromalacia involving the medial and lateral joint compartme nts. MR/MR knee LT wo con* [id number] IMPRESSION: 1. Normal ACL and PCL. 2. Longitudinal tear involving the posterior horn medial meniscus extending to the meniscal root. Normal lateral meniscus. 3. Lobulated popliteal cyst measuring 1.1 x 1.7 x 4.4 cm AP by transverse by c raniocaudal 4. Normal medial and lateral collateral ligaments. 5. Mild chondromalacia patella. Small amount of prepatellar and infrapatellar soft tissue edema. 6. Grade II chondromalacia involving the medial and lateral joint compartments . Outbridge grading:
== END 2022-01-12 10:34 | disposition home or self-care (01) ==
PROVIDERS: PCP Family Medicine; Visit Provider Family Medicine
DX: M94.262 Chondromalacia, left knee (principal); S83.242A Other tear of medial meniscus, current injury, left knee, initial encounter; X58.XXXA Exposure to other specified factors, initial encounter
CPT/HCPCS: 73721

== ENCOUNTER → 2022-01-29 10:42 | Outpatient (BNVA) | payer OTHER, SELFPAY | PROVIDERS: PCP Family Medicine; Visit Provider Internal Medicine Rheumatology | DX: Z79.899 Other long term (current) drug therapy (principal); M19.90 Unspecified osteoarthritis, unspecified site; R76.8 Other specified abnormal immunological findings in serum; Z71.85 Encounter for immunization safety counseling; Z11.59 Encounter for screening for other viral diseases | CPT/HCPCS: 71046; 73130; 73630; 80076; 82306; 82565; 85025; 85651; 86140; 86200; 86480; 86704; 86803; 87340 ==

== ENCOUNTER 2022-02-27 11:11 | Outpatient (CLI) | payer OTHER, SELFPAY ==
--- NOTE | 2022-02-27 11:22 | XRR_ITS ---
NOTE: Report was unsigned for reason: Ordering provider was edited. Original Signature date and time was: 02/28/2022 1650 PROCEDURE INFORMATION: Exam: XR Lumbosacral Spine Exam date and time: 02/27/2022 11:22 AM Age: 56 years old Clinical indication: Low back pain; Additional info: Vertebrogenic low back pain TECHNIQUE: Imaging protocol: Radiologic exam of the lumbosacral spine. Views: 6 or more views. Including flexion and extension views. COMPARISON: No relevant prior studies available. FINDINGS: Bones/joints: Mild to moderate L5/S1 disc space narrowing. Multilevel mild productive degenerative endplate changes throughout the spine. T12 vertebral body minimal compression deformity without retropulsion of bony fragments, age indeterminate. Soft tissues: Unremarkable. [facility] XR/XR lumbar spine 6V w f/e [id number] IMPRESSION: 1. Mild to moderate L5/S1 disc space narrowing. 2. Multilevel mild productive degenerative endplate changes throughout the spine. 3. T12 vertebral body minimal compression deformity without retropulsion of bony fragments, age indeterminate.
== END 2022-02-27 11:12 | disposition home or self-care (01) ==
LOC: RAD 11:12
PROVIDERS: PCP Family Medicine; Visit Provider Pediatrics
DX: M54.51 Vertebrogenic low back pain (principal)
CPT/HCPCS: 72114

== ENCOUNTER → 2022-06-06 11:25 | Outpatient (BNVA) | payer OTHER, SELFPAY | PROVIDERS: PCP Family Medicine; Visit Provider Internal Medicine Rheumatology | DX: M06.041 Rheumatoid arthritis without rheumatoid factor, right hand (principal); M06.042 Rheumatoid arthritis without rheumatoid factor, left hand; M54.9 Dorsalgia, unspecified | CPT/HCPCS: 72072; 72100 ==

== ENCOUNTER → 2022-06-14 15:12 | Outpatient (BNVA) | payer OTHER, SELFPAY | PROVIDERS: PCP Family Medicine; Visit Provider Orthopaedic Surgery | DX: M54.50 Low back pain, unspecified (principal); M47.816 Spondylosis without myelopathy or radiculopathy, lumbar region; M85.88 Other specified disorders of bone density and structure, other site | CPT/HCPCS: 72120 ==

== ENCOUNTER 2022-07-09 17:18 | Emergency (ER) | payer OTHER, SELFPAY ==
[2022-07-09 17:59] VITALS: BMI 22.1
[2022-07-09 18:07] VITALS: BP 163/86; PULSE 72; RESP 18; TEMP 36.4; O2SAT 98
--- NOTE | 2022-07-09 18:35 | W.ED.GENADLT ---
HPI - General Adult General: Chief complaint: General Medical Stated complaint: Groin Pain Time Seen by Provider: 07/09/22 18:31 History of Present Illness: 56-year-old female comes in today for complaints of chronic pain. Patient reports for the last 2 to 3 years she has had pain in her back going down into her hip. Patient reports that it waxes and wanes. Patient today is looking for relief of her pain. Patient appears nontoxic. Patient appears in no acute distress. Patient is managed by Dr. Terra Cummings as her primary care. Associated symptoms: Deny chest pain or dyspnea Review of Systems Const: Denies: fever(s) Card: Denies: chest pain Resp: Denies: dyspnea Musc: Reports: back pain and joint pain (Left hip) PFSH ED PFSH: Medical History Attention-deficit hyperactivity disorder, predominantly inattentive type Generalized anxiety disorder High risk medication use Immunization counseling Inflammatory arthritis Nicotine dependence, cigarettes, uncomplicated Panic disorder [episodic paroxysmal anxiety] Positive ANTHONY (antinuclear antibody) Post-traumatic stress disorder, chronic Psychiatric care Seronegative rheumatoid arthritis of both hands Social History Smoking and tobacco status: current every day smoker cigarettes Packs smoked per day: 2 Years cigarettes smoked: 44 Quit status (tobacco): has tried quititng Number of times tried to quit tobacco: 1 Second hand smoke exposure: Yes Smoking risk assessment/counseling performed?: Yes Alcohol intake: former Lives independently: Yes Household members: spouse Housing: House Marital status: service: No Current occupational status: unemployed Pets and animals: Yes History of recent travel: No Current gender identity: Female Physical Exam Const: COMMON NORMALS: alert HENMT: COMMON NORMALS: normocephalic HEAD & SCALP: normocephalic Neck/C-Spine: COMMON NORMALS: full ROM Resp: COMMON NORMALS: normal respiratory effort and clear to auscultation bilaterally AUSCULTATION: clear to auscultation bilaterally Cardio: COMMON NORMALS: regular rate and regular rhythm RATE: regular rate RHYTHM: regular rhythm Back/Pelvis: COMMON NORMALS: thoracic and lumbar spine normal to inspection Extremity: COMMON NORMALS: normal to inspection Neuro: SENSORIUM/ORIENTATION: Yes alert Skin: COMMON NORMALS: turgor normal GENERAL SKIN EXAM: turgor normal Course Vital Signs: Vital signs: Vital Signs Temperature 97.6 F 07/09/22 18:07 Pulse Rate 72 07/09/22 18:07 Respiratory Rate 18 07/09/22 18:07 Blood Pressure 163/86 07/09/22 18:07 Pulse Oximetry 98 07/09/22 18:07 Oxygen Delivery Me thod 07/09/22 18:07 MDM - General Adult Medical Decision Making 56-year-old female comes in today for complaints of chronic low back and left hip pain. Patient reported being upset with her primary care provider due to them unable to prescribe for her chronic pain. Patient appears nontoxic. No point tenderness is noted along the spine. Vital signs are normal except for some elevation in blood pressure. Abdomen soft nontender. No edema is noted in the lower extremities. Differential diagnosis includes but not limited to chronic back pain, inflammatory arthritis flare, anxiety disorder. Patient was written for a short course of hydrocodone 5?3 25 for 15 tablets to help with her pain. A case management referral was placed to assist with patient's follow-up appointment for further treatment and evaluation. Patient stated understanding. Discharge Plan Discharge Patient Disposition: Home Clinical Impression: Back pain Qualifiers: Back pain location: back pain in unspecified location Chronicity: chronic Back pain laterality: left Qualified Code(s): M54.9 - Dorsalgia, unspecified Condition: Stable Prescriptions: New hydrocodone-acetaminophen 5-325 mg tablet 1 tab PO Q8H PRN (Reason: pain (scale score 7-10)) Qty: 15 0RF No Action levothyroxine 75 mcg capsule 75 mcg PO DAILY meloxicam 15 mg tablet 15 mg PO DAILY hydrochlorothiazide 12.5 mg tablet 12.5 mg PO DAILY methocarbamol PO hydroxychloroquine 200 mg tablet See Rx Instructions PO .COMPLEX Qty: 135 1RF Rx Instructions: Alternate taking 1 tab today then 2 tabs tomorrow. PO; prednisone 2.5 mg tablet 2.5 mg PO DAILY Qty: 90 1RF pantoprazole 40 mg tablet,delayed release (DR/EC) See Rx Instructions PO DAILY Qty: 90 1RF Rx Instructions: take in AM 30 minutes before meal PO daily; clonazepam 0.5 mg tablet 0.5 mg PO TID PRN (Reason: anxiety) Qty: 90 1RF fluoxetine [Prozac] 40 mg capsule 40 mg PO DAILY Qty: 30 1RF trazodone 100 mg tablet 300 mg PO .HS Qty: 90 1RF Rx Instructions: 2-3 tabs as needed for sleep. (DME) Coconut oil 100mg 0 .ROUTE .MEDSUPPLY (DME) tumeric curcumin 0 .ROUTE .MEDSUPPLY Discharge Orders: Discharge ED (Routine); Ordered 07/09/22 Ordered By: Javon Gallardo Referrals: Terra Cummings DO [Primary Care Provider] - Discharge Diet: Usual diet Discharge Activity: Increase activity as tolerated Patient Instructions: Opioid Safety, Pain Management Activity Restrictions/Additional Instructions: I will place a case management to assist with. Chronic pain follow-up care. Return to the emergency room for acute problem such as fever greater than 100.4, inability to hold fluids down, or new concerns. Coding Level of Care Code ED Curtain Cutter for Luis Armando Zhang
[2022-07-09] MEDS: ketorolac 30 mg/mL INJ IM (19:22)
[2022-07-09] MEDS: HYDROcodone-acetaminophen 5-325 mg Tablet 1 TAB PO (19:23)
--- NOTE | 2022-07-12 09:37 | DCPLANNER ---
manager copy had message to refer patient to pain management. manager copy is unable to refer patient to pain management, that referral must come from patients primary care. manager copy called phone number [phone] this number went to a busy signal. manager copy called phone number [phone] - unable to speak with daughter, a voicemail was left for patient to return keycase assembler phone call.
== END 2022-07-09 19:31 | disposition home or self-care (01) ==
PROVIDERS: Emergency Provider Nurse Practitioner Family; PCP Family Medicine
DX: M54.9 Dorsalgia, unspecified (principal); F17.210 Nicotine dependence, cigarettes, uncomplicated
CPT/HCPCS: 96372; 99284; J1885

== ENCOUNTER 2022-07-12 14:13 | Outpatient (CLI) | payer OTHER, SELFPAY ==
--- NOTE | 2022-07-12 14:24 | MM_ITS ---
WS: [id number] BILATERAL 3D TOMOSYNTHESIS DIGITAL SCREENING MAMMOGRAPHY WITH CAD CLINICAL INFORMATION: SCREENING HISTORY: Screening mammogram. No current complaints. COMPARISON: February 22, 2021 TECHNIQUE: Bilateral CC and MLO views. FINDINGS: Scattered fibroglandular densities bilaterally. No suspicious focal mass, asymmetry, calcifications, or architectural distortion. No evidence of malignancy. A few incidental punctate calcifications. Vas cular calcification. MM/[place] [id number] IMPRESSION: BI-RADS: 2-Benign FOLLOW UP: 1 Year Follow-up Recommend return to annual screening mammography.
== END 2022-07-12 14:14 | disposition home or self-care (01) ==
LOC: RAD 14:15
PROVIDERS: PCP Family Medicine; Visit Provider Nurse Practitioner Family
DX: Z12.31 Encounter for screening mammogram for malignant neoplasm of breast (principal)
CPT/HCPCS: 77063; 77067

== ENCOUNTER 2022-07-30 14:13 | Emergency (ER) | payer OTHER, SELFPAY ==
[2022-07-30 15:04] VITALS: BP 92/47; PULSE 91; RESP 14; TEMP 36.6; O2SAT 97; BMI 24.7
[2022-07-30 17:43] LABS: Basophils # 0.1 10^3/uL (0.0-0.1); Basophils % 0.7 %; Eosinophils % 0.3 %; Hematocrit 37.8 % (37.0-47.0); Lymphocytes # 0.7 10^3/uL (0.8-4.8); Lymphocytes % 9.7 %; Mean Corpuscular HGB Conc 34.4 g/dL (30.0-36.0); Mean Corpuscular Hemoglobin 31.9 pg (28.0-34.0); Mean Corpuscular Volume 92.9 fl (81-99); Mean Platelet Volume 8.9 fL (7.4-10.4); Monocytes # 0.2 10^3/uL (0.2-0.9); Monocytes % 2.6 %; Neutrophils # 6.26 10^3/uL (1.8-7.7); Neutrophils % 86.4 %; Nucleated Red Blood Cells % 0 %; Platelet Count 266 10^3/cmm (130-400); Red Blood Count 4.07 10^6/uL (4.1-5.3); Red Cell Distribution Width 12.3 % (12.1-15.1); White Blood Count 7.2 10^3/uL (4.0-10.0)
[2022-07-30 18:01] LABS: Alanine Aminotransferase 10 U/L (0-33); Albumin Level 4.1 g/dL (3.5-5.2); Alkaline Phosphatase 103 U/L (35-105); Aspartate Amino Transferase 11 U/L (0-32); Blood Urea Nitrogen 7 mg/dL (6-20); Calcium 8.7 mg/dL (8.5-10.5); Carbon Dioxide 29 mmol/L (22-29); Chloride 87 mmol/L (98-107); Globulin 2.4 g/dL (1.3-4.6); Glomerular Filtration Rate 85.9 mL/min (90-130); Glucose 103 mg/dL (65-115); Osmolality Calculated 254 mOsm/kg (285-295); Sodium 123 mmol/L (136-145); Total Bilirubin 0.2 mg/dL (0.15-1.2); Total Protein 6.5 g/dL (6.6-8.7)
--- NOTE | 2022-07-30 19:18 | W.ED.RECABL ---
HPI - Recheck/Abnormal Lab/Rx General: Chief Complaint: Recheck/Abnormal Lab/Rx Stated Complaint: abnormal lab Time Seen by Provider: 07/30/22 19:18 History of Present Illness: 56-year-old female was referred to the ER from her primary care office due to her sodium being low on the lab work. Patient denies any headaches, nausea vomiting, or lightheadedness. Review of patient's medication she is on prednisone and hydrochlorothiazide. Either these medications may contribute to abnormalities in sodium and potassium. Patient denies any problems or concerns. Patient appears nontoxic. Patient appears in no pain. Review of Systems Const: Denies: fever(s) Resp: Denies: dyspnea GI: Denies: nausea or vomiting PFSH ED PFSH: Medical History Attention-deficit hyperactivity disorder, predominantly inattentive type Generalized anxiety disorder High risk medication use Immunization counseling Inflammatory arthritis Nicotine dependence, cigarettes, uncomplicated Panic disorder [episodic paroxysmal anxiety] Positive ANTHONY (antinuclear antibody) Post-traumatic stress disorder, chronic Psychiatric care Seronegative rheumatoid arthritis of both hands Social History Smoking and tobacco status: current every day smoker cigarettes Packs smoked per day: 2 Years cigarettes smoked: 44 Quit status (tobacco): has tried quititng Number of times tried to quit tobacco: 1 Second hand smoke exposure: Yes Smoking risk assessment/counseling performed?: Yes Alcohol intake: former Lives independently: Yes Household members: spouse Housing: House Marital status: service: No Current occupational status: unemployed Pets and animals: Yes History of recent travel: No Current gender identity: Female Physical Exam Const: COMMON NORMALS: alert HENMT: COMMON NORMALS: normocephalic HEAD & SCALP: normocephalic MOUTH: Normal oral and palatal mucosa present Neck/C-Spine: COMMON NORMALS: full ROM Resp: COMMON NORMALS: normal respiratory effort Cardio: COMMON NORMALS: regular rate RATE: regular rate GI: COMMON NORMALS: Soft to palpation and non-tender PALPATION: Yes Soft to palpation Extremity: COMMON NORMALS: no pedal edema Neuro: SENSORIUM/ORIENTATION: Yes alert Skin: COMMON NORMALS: no rashes or lesions noted GENERAL SKIN EXAM: no rashes or lesions noted Course Vital Signs: Vital signs: Vital Signs Temperature 97.9 F 07/30/22 15:04 Pulse Rate 91 07/30/22 15:04 Respiratory Rate 14 07/30/22 15:04 Blood Pressure 92/47 07/30/22 15:04 Pulse Oximetry 97 07/30/22 15:04 Oxygen Delivery Me thod 07/30/22 15:04 MDM - Recheck/Abnormal Lab/Rx Medical Decision Making Patient comes in today for low potassium and sodium on her lab work. Review of her record notes that patient is on prednisone and hydrochlorothiazide. Lungs are clear to auscultation. Skin is warm and dry. Vital signs are normal except for some low blood pressure. Differential diagnosis includes dehydration, adverse drug effect, acute hyponatremia. Patient appears nontoxic. Patient denies any pain or headache. Patient was given 1 L of IV fluid to correct dehydration. Patient was recommended to stop hydrochlorothiazide due to abnormalities in sodium and potassium. Patient was given 20 mEq of potassium. Recommend patient follow-up with primary care in 1 week for recheck. Return to ED for worsening symptoms such as severe headache, lightheadedness, persistent nausea vomiting, or other concerns. Lab Data 07/30/22 17:09 07/30/22 17:09 Laboratory Results WBC 7.2 10^3/uL (4.0-10.0) 07/30/22 17:09 RBC 4.07 10^6/uL (4.1-5.3) L 07/30/22 17:09 Hgb 13.0 g/dL (11.5-15.3) 07/30/22 17:09 Hct 37.8 % (37.0-47.0) 07/30/22 17:09 MCV 92.9 fl (81-99) 07/30/22 17:09 MCH 31.9 pg (28.0-34.0) 07/30/22 17:09 MCHC 34.4 g/dL (30.0-36.0) 07/30/22 17:09 RDW 12.3 % (12.1-15.1) 07/30/22 17:09 Plt Count 266 10^3/cmm (130-400) 07/30/22 17:09 MPV 8.9 fL (7.4-10.4) 07/30/22 17:09 Neut % (Auto) 86.4 % 07/30/22 17:09 Lymph % (Auto) 9.7 % 07/30/22 17:09 Cobb % (Auto) 2.6 % 07/30/22 17:09 Eos % (Auto) 0.3 % 07/30/22 17:09 Baso % (Auto) 0.7 % 07/30/22 17:09 Neut # (Auto) 6.26 10^3/uL (1.8-7.7) 07/30/22 17:09 Lymph # (Auto) 0.7 10^3/uL (0.8-4.8) L 07/30/22 17:09 Cobb # (Auto) 0.2 10^3/uL (0.2-0.9) 07/30/22 17:09 Eos # (Auto) 0.0 10^3/uL (0.0-0.8) 07/30/22 17:09 Baso # (Auto) 0.1 10^3/uL (0.0-0.1) 07/30/22 17:09 Nucleated RBC % (auto) 0 % 07/30/22 17:09 Nucleated RBCs # 0.0 /100WBC 07/30/22 17:09 Sodium 123 mmol/L (136-145) L 07/30/22 17:09 Potassium 3.0 mmol/L (3.5-5.1) L 07/30/22 17:09 Chloride 87 mmol/L (98-107) L 07/30/22 17:09 Carbon Dioxide 29 mmol/L (22-29) 07/30/22 17:09 Anion Gap 10.0 (5-19) 07/30/22 17:09 BUN 7 mg/dL (6-20) 07/30/22 17:09 Creatinine 0.7 mg/dL (0.5-0.9) 07/30/22 17:09 GFR Calculation 85.9 mL/min (90-130) L 07/30/22 17:09 Glucose 103 mg/dL (65-115) 07/30/22 17:09 Calculated Osmolality 254 mOsm/kg (285-295) L 07/30/22 17:09 Calcium 8.7 mg/dL (8.5-10.5) 07/30/22 17:09 Total Bilirubin 0.2 mg/dL (0.15-1.2) 07/30/22 17:09 AST 11 U/L (0-32) 07/30/22 17:09 ALT 10 U/L (0-33) 07/30/22 17:09 Alkaline Phosphatase 103 U/L (35-105) 07/30/22 17:09 Total Protein 6.5 g/dL (6.6-8.7) L 07/30/22 17:09 Albumin 4.1 g/dL (3.5-5.2) 07/30/22 17:09 Globulin 2.4 g/dL (1.3-4.6) 07/30/22 17:09 Discharge Plan Discharge Patient Disposition: Home Clinical Impression: Hyponatremia, Dehydration Adverse drug effect Qualifiers: Encounter type: initial encounter Qualified Code(s): T50.905A - Adverse effect of unspecified drugs, medicaments and biological substances, initial encounter Condition: Stable Prescriptions: Discontinued hydrochlorothiazide 12.5 mg tablet 12.5 mg PO DAILY No Action levothyroxine 75 mcg capsule 75 mcg PO DAILY prednisone 2.5 mg tablet 2.5 mg PO DAILY Qty: 90 1RF fluoxetine [Prozac] 40 mg capsule 40 mg PO DAILY Qty: 30 1RF trazodone 100 mg tablet 300 mg PO .HS Qty: 90 1RF Rx Instructions: 2-3 tabs as needed for sleep. clonazepam 0.5 mg tablet 0.5 mg PO QID PRN (Reason: anxiety) Qty: 120 1RF clonazepam 0.5 mg tablet 0.5 mg PO TID PRN (Reason: anxiety) Qty: 90 1RF fluoxetine [Prozac] 40 mg capsule 40 mg PO DAILY Qty: 30 1RF trazodone 100 mg tablet 300 mg PO .HS Qty: 90 1RF Rx Instructions: 2-3 tabs as needed for sleep. (DME) tumeric curcumin 0 .Route .MEDSUPPLY hydroxychloroquine 200 mg tablet 200 mg PO DAILY Qty: 60 1RF pantoprazole 40 mg tablet,delayed release (DR/EC) See Rx Instructions PO DAILY Qty: 90 1RF Rx Instructions: take in AM 30 minutes before meal PO daily; Discharge Orders: Discharge ED (Routine); Ordered 07/30/22 Ordered By: Javon Gallardo Referrals: Terra Cummings DO [Primary Care Provider] - Discharge Diet: Usual diet Discharge Activity: Increase activity as tolerated Patient Instructions: Hyponatremia (ED) Activity Restrictions/Additional Instructions: Stop hydrochlorothiazide. Most likely the hydrocal thiazide has offset your sodium and potassium causing it to run low. Stopping the medication should help that regulate more effectively. Eat a healthy diet and drink normal fluids. Follow-up with primary care in 1 week for recheck of blood work. Return to emergency department for persistent nausea or vomiting. Fever greater than 100.4, lightheadedness or severe headache. Coding Level of Care Code ED Blending Machine Operator for Kikeg Fwd Exam Comprehensive
[2022-07-30] MEDS: potassium chloride ER 20 mEq Tablet PO (19:34)
[2022-07-30] MEDS: sodium chloride 0.9% 1,000 ML 999 ML IV (19:34)
== END 2022-07-30 20:40 | disposition home or self-care (01) ==
PROVIDERS: Emergency Medicine; Emergency Provider Nurse Practitioner Family; PCP Family Medicine
DX: E87.1 Hypo-osmolality and hyponatremia (principal); E86.0 Dehydration; T50.905A Adverse effect of unspecified drugs, medicaments and biological substances, initial encounter; F17.210 Nicotine dependence, cigarettes, uncomplicated
CPT/HCPCS: 80053; 85025; 96360; 99284; J7030

== ENCOUNTER → 2022-08-06 12:08 | Outpatient (BNVA) | payer OTHER, SELFPAY | PROVIDERS: PCP Family Medicine; Visit Provider Internal Medicine Rheumatology | DX: Z79.899 Other long term (current) drug therapy (principal); M06.041 Rheumatoid arthritis without rheumatoid factor, right hand; M06.042 Rheumatoid arthritis without rheumatoid factor, left hand; Z71.85 Encounter for immunization safety counseling; M19.90 Unspecified osteoarthritis, unspecified site; R76.8 Other specified abnormal immunological findings in serum; E87.6 Hypokalemia | CPT/HCPCS: 36415; 72170; 83735; 84132; 84439; 84443 ==

== ENCOUNTER → 2022-11-27 14:59 | Outpatient (BNVA) | payer OTHER, SELFPAY | PROVIDERS: PCP Family Medicine; Visit Provider Internal Medicine Rheumatology | DX: M06.041 Rheumatoid arthritis without rheumatoid factor, right hand (principal); M06.042 Rheumatoid arthritis without rheumatoid factor, left hand; Z79.899 Other long term (current) drug therapy | CPT/HCPCS: 36415; 80076; 82565; 85025; 86140 ==

== ENCOUNTER → 2023-02-21 14:17 | Outpatient (BNVA) | payer OTHER, SELFPAY | PROVIDERS: PCP Family Medicine; Visit Provider Internal Medicine Rheumatology | DX: M06.041 Rheumatoid arthritis without rheumatoid factor, right hand (principal); M06.042 Rheumatoid arthritis without rheumatoid factor, left hand; Z79.899 Other long term (current) drug therapy; R06.02 Shortness of breath | CPT/HCPCS: 36415; 71046; 80076; 82565; 84439; 84443; 85025; 86140 ==

== ENCOUNTER 2023-02-25 14:48 | Emergency (ER) | payer OTHER, SELFPAY ==
[2023-02-25 15:00] VITALS: BP 158/82; PULSE 77; RESP 18; TEMP 36.7; O2SAT 97
--- NOTE | 2023-02-25 20:13 | XRR_ITS ---
PROCEDURE INFORMATION: Exam: XR Chest Exam date and time: 02/25/2023 8:18 PM Age: 57 years old Clinical indication: Patient HX: PT C/O shortness of breath which causing her anxiety. TECHNIQUE: Imaging protocol: Radiologic exam of the chest. Views: 1 view. COMPARISON: CR XR chest 2V* [id number] 02/21/2023 3:02 PM FINDINGS: Lungs: Unremarkable. No consolidation. Pleural spaces: Unremarkable. No pleural effusion. No pneumothorax. Heart/Mediastinum: Unremarkable. No cardiomegaly. Bones/joints: Unremarkable. XR/XR chest 1V portable [id number] IMPRESSION: No acute findings.
--- NOTE | 2023-02-25 20:13 | ECG_ITS ---
[facility] Test Date: 2023-02-25 Pat Name: Angelita Villarreal Department: Room: Gender: Female Wireless Sales Representative: : 1965 Requested By: Lawrence Chandra Order Number: [id number] Ezekiel MD: Michelle Maradiaga M.D. Measurements Intervals [place] Rate: 68 P: 60 [place]: 184 QRS: 70 QRSD: 86 T: 67 QT: 404 QTc: 430 Interpretive Statements SINUS RHYTHM WITH OCCASIONAL SUPRAVENTRICULAR PREMATURE COMPLEXES Compared to ECG 10/21/2020 20:30:15 No significant changes Electronically Signed On 02-25-2023 21:36:29 CDT by Michelle Maradiaga M.D. [email or web address]
[2023-02-25 20:19] VITALS: BP 172/106; PULSE 63; RESP 16; O2SAT 100
--- NOTE | 2023-02-25 20:19 | ED_ITS ---
HPI - Anxiety General: Chief Complaint: Anxiety Stated Complaint: Chio sent for sob Time Seen by Provider: 02/25/23 18:32 Source: patient Mode of arrival: ambulatory Limitations: no limitations History of Present Illness: 57-year-old female history of anxiety states over the last 2 weeks feels that s he been extremely anxious she states she been hyperventilating feels like she cannot get a breath then and her Klonopin is not helping her. She has also had a slight cough she denies any chest pain no fevers her pulse ox here is 100%. Associated symptoms: Deny chest pain, chills, fever(s), headache(s), nausea or vomiting Review of Systems Const: Denies: fever(s), chills, body aches or change in appetite ENMT: Denies: throat pain or dental pain Card: Denies: chest pain Resp: Reports: dyspnea and non-productive cough GI: Denies: abdominal pain, nausea, vomiting or diarrhea : Denies: dysuria Musc: Denies: neck pain or back pain Skin/Breast: Denies: rash Neuro: Denies: headache(s) Psych: Reports: anxiety PFSH ED PFSH: Medical History Attention-deficit hyperactivity disorder, predominantly inattentive type Generalized anxiety disorder High risk medication use Hypokalemia Immunization counseling Inflammatory arthritis Nicotine dependence, cigarettes, uncomplicated Panic disorder [episodic paroxysmal anxiety] Positive ANTHONY (antinuclear antibody) Post-traumatic stress disorder, chronic Psychiatric care Seronegative rheumatoid arthritis of both hands Social History Smoking and tobacco status: current every day smoker cigarettes Packs smoked per day: 2 Years cigarettes smoked: 44 Quit status (tobacco): has tried quititng Number of times tried to quit tobacco: 1 Second hand smoke exposure: Yes Smoking risk assessment/counseling performed?: Yes Alcohol intake: former Substance/Drug Use: never Lives independently: Yes Household members: spouse Housing: House Marital status: service: No Current occupational status: unemployed Pets and animals: Yes Do you think of yourself as: Straight/Heterosexual Current gender identity: Female Physical Exam Const: COMMON NORMALS: no acute distress, patient oriented x3 and healthy appearing HENMT: COMMON NORMALS: normocephalic and atraumatic HEAD & SCALP: normocephalic and atraumatic Eye: COMMON NORMALS: Equal, round and reactive pupils present and EOMs intact bilaterally PUPIL: Yes Equal, round and reactive pupils present Neck/C-Spine: COMMON NORMALS: full ROM and supple Chest: COMMONS NORMALS: normal inspection of the chest and normal palpation of entire chest wall Resp: COMMON NORMALS: normal respiratory effort, No retractions, No use of accessory muscles and clear to auscultation bilaterally AUSCULTATION: clear to auscultation bilaterally Cardio: COMMON NORMALS: regular rate, regular rhythm and No murmurs present (Cardio) RATE: regular rate RHYTHM: regular rhythm GI: COMMON NORMALS: Normal to inspection, nondistended, normoactive bowel sounds present, Soft to palpation, non-tender and no masses PALPATION: Yes Soft to palpation Extremity: COMMON NORMALS: normal to inspection and full ROM Neuro: COMMON NORMALS: patient oriented x3, moves all extremities and no focal motor deficits Psych: COMMON NORMALS: mental status grossly normal, Normal thought process present and cooperative THOUGHT PROCESS: Normal thought process present Skin: COMMON NORMALS: no rashes or lesions noted and no wounds GENERAL SKIN EXAM: no rashes or lesions noted Course Vital Signs: Vital signs: Vital Signs Temperature 98.1 F 02/25/23 15:00 Pulse Rate 61 02/25/23 22:00 Respiratory Rate 16 02/25/23 22:00 Blood Pressure 169/95 02/25/23 22:00 Pulse Oximetry 96 02/25/23 22:00 Oxygen Delivery Me thod Room Air 02/25/23 21:23 MDM - Anxiety Medical Decision Making Patient presents with anxiety is improved with Ativan x-ray shows no signs pneumonia she has no signs of pulmonary embolism EKG and blood work are all normal she is stable for discharge she is to follow-up with PCP and return if worsening. Lab Data 02/25/23 20:55 02/25/23 20:55 Radiology Impressions Chest X-Ray 02/25/23 20:13 IMPRESSION: No acute findings. Laboratory Results WBC 7.4 10^3/uL (4.0-10.0) 02/25/23 20:55 RBC 4.02 10^6/uL (4.1-5.3) L 02/25/23 20:55 Hgb 12.5 g/dL (11.5-15.3) 02/25/23 20:55 Hct 37.1 % (37.0-47.0) 02/25/23 20: MCV 92.3 fl (81-99) 02/25/23 20:55 MCH 31.1 pg (28.0-34.0) 02/25/23 20: MCHC 33.7 g/dL (30.0-36.0) 02/25/23 20: RDW 13.4 % (12.1-15.1) 02/25/23 20:55 Plt Count 272 10^3/cmm (130-400) 02/25/23 20:55 MPV 9.4 fL (7.4-10.4) 02/25/23 20:55 Neut % (Auto) 74.4 % 02/25/23 20: Lymph % (Auto) 21.3 % 02/25/23 20: Meagher % (Auto) 3.5 % 02/25/23 20: Eos % (Auto) 0.1 % 02/25/23 20: Baso % (Auto) 0.4 % 02/25/23 20: Neut # (Auto) 5.48 10^3/uL (1.8-7.7) 02/25/23 20: Lymph # (Auto) 1.6 10^3/uL (0.8-4.8) 02/25/23 20: Meagher # (Auto) 0.3 10^3/uL (0.2-0.9) 02/25/23 20: Eos # (Auto) 0.0 10^3/uL (0.0-0.8) 02/25/23 20: Baso # (Auto) 0.0 10^3/uL (0.0-0.1) 02/25/23: Nucleated RBC % (auto) 0 % 02/25/23: Nucleated RBCs # 0.0 /100WBC 02/25/23 20:55 Sodium 136 mmol/L (136-145) 02/25/23 20:55 Potassium 3.7 mmol/L (3.5-5.1) 02/25/23 20: Chloride 102 mmol/L (98-107) 02/25/23 20:55 Carbon Dioxide 20 mmol/L (22-29) L 02/25/23 20:55 Anion Gap 17.7 (5-19) 02/25/23 20:55 BUN 19 mg/dL (6-20) 02/25/23 20:55 Creatinine 0.8 mg/dL (0.5-0.9) 02/25/23 20:55 GFR Calculation 73.4 mL/min (90-130) L 02/25/23 20:55 Glucose 85 mg/dL (65-115) 02/25/23 20:55 Calculated Osmolality 284 mOsm/kg (285-295) L 02/25/23 20:55 Calcium 9.2 mg/dL (8.5-10.5) 02/25/23 20:55 Total Bilirubin 0.5 mg/dL (0.15-1.2) 02/25/23 20:55 AST 14 U/L (0-32) 02/25/23 20:55 ALT 26 U/L (0-33) 02/25/23 20:55 Alkaline Phosphatase 60 U/L (35-105) 02/25/23 20:55 NT-Pro-B Natriuret Pep 300 pg/mL (0-125) H 02/25/23 20:55 Total Protein 6.6 g/dL (6.6-8.7) 02/25/23 20:55 Albumin 4.4 g/dL (3.5-5.2) 02/25/23 20:55 Globulin 2.2 g/dL (1.3-4.6) 02/25/23 20:55 Discharge Plan Discharge Patient Disposition: Home Clinical Impression: Acute anxiety Condition: Stable Prescriptions: New hydroxyzine HCl 25 mg tablet 25 mg PO Q8H PRN (Reason: anxiety) Qty: 20 0RF No Action levothyroxine 75 mcg capsule 50 mcg PO DAILY fluoxetine [Prozac] 20 mg capsule 20 mg PO DAILY Qty: 30 1RF leflunomide 20 mg tablet 20 mg PO DAILY Qty: 30 3RF prednisone 5 mg tablet See Rx Instructions PO .COMPLEX Qty: 90 1RF Rx Instructions: orally take 2tabs daily x10 days then stay on 5mg daily; losartan 25 mg tablet 25 mg PO DAILY clonazepam 0.5 mg tablet 0.5 mg PO QID PRN (Reason: anxiety) Qty: 120 1RF pantoprazole 40 mg tablet,delayed release (DR/EC) See Rx Instructions PO DAILY Qty: 90 1RF Rx Instructions: take in AM 30 minutes before meal PO daily; tramadol 50 mg tablet 50 mg PO BID PRN (Reason: pain) Qty: 60 1RF prednisone 10 mg tablet See Rx Instructions PO DAILY Qty: 30 1RF Rx Instructions: take 15mg daily for 3 days then 10 daily x3 days then go back to 5mg daily orally daily; Discharge Orders: Discharge ED (Routine); Ordered 02/25/23 Ordered By: Lawrence Chandra Referrals: John Barroso MD [Primary Care Provider] - 1-3 days Discharge Diet: Advance as tolerated Discharge Activity: Resume usual activity Patient Instructions: Anxiety (ED) Coding Level of Care Code ED Desizing Machine Offbearer for Luis Armando Zhang
[2023-02-25] MEDS: LORazepam 2 mg/mL INJ 1 mL 1 MG IVP (20:25)
[2023-02-25 20:48] VITALS: BP 205/109; O2SAT 99
[2023-02-25 21:23] VITALS: BP 192/98; PULSE 55; RESP 16; O2SAT 99
[2023-02-25 21:31] LABS: Basophils % 0.4 %; Eosinophils % 0.1 %; Hematocrit 37.1 % (37.0-47.0); Hemoglobin 12.5 g/dL (11.5-15.3); Lymphocytes # 1.6 10^3/uL (0.8-4.8); Lymphocytes % 21.3 %; Mean Corpuscular HGB Conc 33.7 g/dL (30.0-36.0); Mean Corpuscular Hemoglobin 31.1 pg (28.0-34.0); Mean Corpuscular Volume 92.3 fl (81-99); Mean Platelet Volume 9.4 fL (7.4-10.4); Monocytes # 0.3 10^3/uL (0.2-0.9); Monocytes % 3.5 %; Neutrophils # 5.48 10^3/uL (1.8-7.7); Neutrophils % 74.4 %; Nucleated Red Blood Cells % 0 %; Platelet Count 272 10^3/cmm (130-400); Red Blood Count 4.02 10^6/uL (4.1-5.3); Red Cell Distribution Width 13.4 % (12.1-15.1); White Blood Count 7.4 10^3/uL (4.0-10.0)
[2023-02-25 21:38] VITALS: BP 157/82; O2SAT 96
[2023-02-25 21:44] LABS: Alanine Aminotransferase 26 U/L (0-33); Albumin Level 4.4 g/dL (3.5-5.2); Alkaline Phosphatase 60 U/L (35-105); Anion Gap 17.7 (5-19); Aspartate Amino Transferase 14 U/L (0-32); Blood Urea Nitrogen 19 mg/dL (6-20); Calcium 9.2 mg/dL (8.5-10.5); Carbon Dioxide 20 mmol/L (22-29); Chloride 102 mmol/L (98-107); Globulin 2.2 g/dL (1.3-4.6); Glomerular Filtration Rate 73.4 mL/min (90-130); Glucose 85 mg/dL (65-115); NT Pro B Type Natriuretic Pept 300 pg/mL (0-125); Osmolality Calculated 284 mOsm/kg (285-295); Potassium 3.7 mmol/L (3.5-5.1); Sodium 136 mmol/L (136-145); Total Bilirubin 0.5 mg/dL (0.15-1.2); Total Protein 6.6 g/dL (6.6-8.7)
[2023-02-25 22:00] VITALS: BP 169/95; PULSE 61; RESP 16; O2SAT 96
== END 2023-02-25 22:01 | disposition home or self-care (01) ==
PROVIDERS: Emergency Provider Emergency Medicine; PCP Family Medicine
DX: F41.9 Anxiety disorder, unspecified (principal); F17.210 Nicotine dependence, cigarettes, uncomplicated
CPT/HCPCS: 36415; 71045; 80053; 83880; 85025; 93005; 96374; 99285; J2060

== ENCOUNTER 2023-04-11 14:52 | Emergency (ER) | payer OTHER, SELFPAY ==
[2023-04-11 15:01] VITALS: BP 173/84; PULSE 100; RESP 22; TEMP 37.2; O2SAT 97
--- NOTE | 2023-04-11 15:25 | ED_ITS ---
HPI - Anxiety General: Chief Complaint: Anxiety Stated Complaint: Panic attack, High bp Time Seen by Provider: 04/11/23 15:02 History of Present Illness: Presents to the ER with daughter at bedside. For anxiety and panic attack. [facility] called earlier that said he was sending to the ER for shortness of breath due to anxiety attack. Patient states she has been having anxiety attacks daily for several years and sees a provider at [facility] for medication. Patient had recently been placed on mirtazapine but these anxiety and panic attacks was going on before that. The mirtazapine has not helped. Review of Systems General: Reports: 10 or more systems reviewed and unremarkable except in HPI and below PFSH ED PFSH: Medical History Attention-deficit hyperactivity disorder, predominantly inattentive type Generalized anxiety disorder High risk medication use Hypokalemia Immunization counseling Inflammatory arthritis Nicotine dependence, cigarettes, uncomplicated Panic disorder [episodic paroxysmal anxiety] Positive ANTHONY (antinuclear antibody) Post-traumatic stress disorder, chronic Psychiatric care Seronegative rheumatoid arthritis of both hands Social History Smoking and tobacco status: current every day smoker cigarettes Packs smoked per day: 2 Years cigarettes smoked: 44 Quit status (tobacco): has tried quititng Number of times tried to quit tobacco: 1 Second hand smoke exposure: Yes Smoking risk assessment/counseling performed?: Yes Alcohol intake: former Substance/Drug Use: never Lives independently: Yes Household members: spouse Housing: House Marital status: service: No Current occupational status: unemployed Pets and animals: Yes Do you think of yourself as: Straight/Heterosexual Current gender identity: Female Physical Exam Const: COMMON NORMALS: no acute distress, average body habitus, patient oriented x3, no limitations, healthy appearing, alert and well nourished HENMT: COMMON NORMALS: normocephalic, atraumatic, hearing grossly normal bilaterally, external ears normal, Normal external nose present and moist oral mucous membranes HEAD & SCALP: normocephalic and atraumatic NOSE: Normal external nose present EXTERNAL EAR: Yes external ears normal Neck/C-Spine: COMMON NORMALS: full ROM, no lymphadenopathy, supple, no meningeal signs, no JVD and Thyroid normal THYROID: Thyroid normal Chest: COMMONS NORMALS: normal inspection of the chest and normal palpation of entire chest wall Resp: COMMON NORMALS: normal respiratory effort, No retractions, No use of accessory muscles and clear to auscultation bilaterally AUSCULTATION: clear to auscultation bilaterally Cardio: COMMON NORMALS: no JVD, regular rate, regular rhythm, S1 normal heart sound present, S2 normal heart sound present, No gallops present (Cardio), No clicks present (Cardio), No murmurs present (Cardio) and No rub (Cardio) RATE: regular rate RHYTHM: regular rhythm HEART SOUNDS: S1 normal heart sound present and S2 normal heart sound present GI: COMMON NORMALS: Normal to inspection, nondistended, normoactive bowel sounds present, Soft to palpation, non-tender, No hepatosplenomegaly present and no masses PALPATION: Yes Soft to palpation and Yes No hepatosplenomegaly present : COMMON NORMALS: Yes no CVA tenderness BLADDER/KIDNEY EXAM: Yes no CVA t enderness Back/Pelvis: COMMON NORMALS: no CVA tenderness Neuro: COMMON NORMALS: patient oriented x3 SENSORIUM/ORIENTATION: Yes alert MENINGEAL SIGNS: Yes no meningeal signs Course Vital Signs: Vital signs: Vital Signs Temperature 99.0 F 04/11/23 15:01 Pulse Rate 100 04/11/23 15:01 Respiratory Rate 22 H 04/11/23 15:01 Blood Pressure 173/84 04/11/23 15:01 Pulse Oximetry 97 04/11/23 15:01 Oxygen Delivery Me thod Room Air 04/11/23 15:01 MDM - Anxiety Medical Decision Making Presents with acute anxiety and panic attack. Patient was sent over from [facility]. These happen to the patient frequently she is on multiple psychiatric medicines. Patient was given 1 mg of oral Ativan which seemed to calm her down nicely. Patient will be referred back to her PCP and/or [facility] for further medical management of her anxiety. Differential Diagnosis Likely panic disorder and acute anxiety; Unlikely hyperventilation Medical Records I reviewed the patient's medical records. Lab Data I reviewed the patient's lab results. Discharge Plan Discharge Patient Disposition: Home Clinical Impression: Acute anxiety Condition: Stable Prescriptions: No Action leflunomide 20 mg tablet 20 mg PO DAILY Qty: 30 3RF prednisone 5 mg tablet See Rx Instructions PO .COMPLEX Qty: 90 1RF Rx Instructions: orally take 2tabs daily x10 days then stay on 5mg daily; losartan 25 mg tablet 25 mg PO DAILY pantoprazole 40 mg tablet,delayed release (DR/EC) See Rx Instructions PO DAILY Qty: 90 1RF Rx Instructions: take in AM 30 minutes before meal PO daily; fluoxetine [Prozac] 40 mg capsule 40 mg PO DAILY Qty: 30 2RF mirtazapine 7.5 mg tablet 7.5 mg PO BEDTIME levothyroxine 50 mcg tablet 50 mcg PO DAILY Discharge Orders: Discharge ED (Routine); Ordered 04/11/23 Ordered By: Emiliano Joya Referrals: John Barroso MD [Primary Care Provider] - 1-3 days Patient Instructions: Anxiety (ED) Activity Restrictions/Additional Instructions: For discharge from the ER please call your primary care doc and/or your [facility] to arrange a close follow-up for your anxiety. Coding Level of Care Code ED Brass Sorter for Luis Armando Zhang
[2023-04-11] MEDS: LORazepam 1 mg Tablet PO (15:30)
== END 2023-04-11 16:53 | disposition home or self-care (01) ==
PROVIDERS: Emergency Provider Emergency Medicine; PCP Family Medicine
DX: F41.9 Anxiety disorder, unspecified (principal); F17.210 Nicotine dependence, cigarettes, uncomplicated
CPT/HCPCS: 99283

== ENCOUNTER → 2023-06-20 15:01 | Outpatient (BNVA) | payer OTHER, SELFPAY | PROVIDERS: PCP Family Medicine; Visit Provider Internal Medicine Rheumatology | DX: M06.041 Rheumatoid arthritis without rheumatoid factor, right hand (principal); M06.042 Rheumatoid arthritis without rheumatoid factor, left hand; Z79.899 Other long term (current) drug therapy; M54.2 Cervicalgia | CPT/HCPCS: 36415; 72040; 80076; 82565; 85025; 86140 ==

== ENCOUNTER 2023-11-01 17:19 | Emergency (ER) | payer OTHER, SELFPAY ==
[2023-11-01 17:40] VITALS: BP 144/78; PULSE 83; RESP 17; TEMP 37.1; O2SAT 96; BMI 26.0
--- NOTE | 2023-11-01 18:30 | ECG_ITS ---
[facility] Test Date: 2023-11-01 Pat Name: Angelita Villarreal Department: Room: Gender: Female Licensed Staff Mft: : 1965 Requested By: Jyoti Morales Order Number: [id number] Ezekiel MD: Manuel Berger M.D. Measurements Intervals [place] Rate: 65 P: -9 DC: 176 QRS: 62 QRSD: 74 T: 65 QT: 409 QTc: 426 Interpretive Statements SINUS RHYTHM SEPTAL MYOCARDIAL INFARCTION , OF INDETERMINATE AGE [40+ ms Q WAVE IN V1/V2] Compared to ECG 02/25/2023 20:11:17 Myocardial infarct finding now present Electronically Signed On 11-01-2023 23:43:08 FILLER OPERATOR by Manuel Berger M.D. [id number]
[2023-11-01 18:38] VITALS: BP 147/87; PULSE 63; RESP 17; O2SAT 98
--- NOTE | 2023-11-01 19:02 | ED_ITS ---
Documented by User: CHERRIE Burkett 11/01/23 21:51 HPI - Recheck/Abnormal Lab/Rx 2 General: Chief Complaint: Recheck/Abnormal Lab/Rx Stated Complaint: neck pain, n/d Time Seen by Provider: 11/01/23 18:06 Source: patient and family Mode of arrival: ambulatory Limitations: no limitations History of Present Illness: Patient presents emergency department today for evaluation treatment of several different concerns. Patient states that she feels like she is having trouble putting together her thoughts and is not thinking clearly. She states this has been going on now for a while. Patient's son is here and he indicates patient may seem a little slowed but, states that the patient was dropping off a stool specimen the primary care doctor's office and had mentioned her symptoms. He states they wanted her to come to the emergency department for evaluation. When asked why the patient was dropping off a stool specimen she indicated she has been having multiple episodes of diarrhea for a while now. She states it is brown and watery. She gets generalized abdominal cramps but has not been having any vomiting or fevers. No others at home similarly ill. She denies being on any antibiotics recently. Patient also mentions that about a week ago she was having a sore throat that was nearly consistent however, now it comes and goes indicating only left-sided discomfort. She states her voice will crack and is raspy. She also states that every so often she feels like her right hand goes tingly-she states it is the entire thing-not only specific fingers. She notes it happens more when she has her hand down in a certain position. Patient has a history of electrolyte abnormalities including hypokalemia. Patient's son states she gets low sodium. She also has abnormal thyroid function and takes levothyroxine. The son indicates patient has issues with significant panic attacks but seems to be doing better on Effexor since they switched over from her original anxiety medication. Patient deals with rheumatoid arthritis. Review of Systems 2 General: Reports: 10 or more systems reviewed and unremarkable except in HPI and below PFSH ED 2 PFSH: Medical History Hypokalemia Seronegative rheumatoid arthritis of both hands Immunization counseling High risk medication use Inflammatory arthritis Positive ANTHONY (antinuclear antibody) Psychiatric care Attention-deficit hyperactivity disorder, predominantly inattentive type Nicotine dependence, cigarettes, uncomplicated Panic disorder [episodic paroxysmal anxiety] Generalized anxiety disorder Post-traumatic stress disorder, chronic Social History Smoking and tobacco/nicotine status: current every day tobacco/nicotine user cigarettes Packs smoked per day: 2 Years cigarettes smoked: 44 Quit status (tobacco/nicotine): has tried quititng Number of times tried to quit tobacco: 1 Second hand smoke exposure: Yes Alcohol intake: former Substance/Drug Use: never Lives independently: Yes Household members: spouse Housing: House Marital status: service: No Current occupational status: unemployed Pets and animals: Yes Do you think of yourself as: Straight/Heterosexual Current gender identity: Female Physical Exam 2 Const: COMMON NORMALS: no acute distress, patient oriented x3 and alert HENMT: COMMON NORMALS: normocephalic, atraumatic, hearing grossly normal bilaterally, external ears normal, Normal external nose present, moist oral mucous membranes and oropharynx normal HEAD & SCALP: normocephalic and atraumatic NOSE: Normal external nose present EXTERNAL EAR: Yes external ears normal Eye: COMMON NORMALS: Equal, round and reactive pupils present, EOMs intact bilaterally and conjunctivae normal CONJUNCTIVA: Yes conjunctivae normal P UPIL: Yes Equal, round and reactive pupils present Neck/C-Spine: COMMON NORMALS: full ROM, no lymphadenopathy, supple, no meningeal signs, no JVD and Thyroid normal THYROID: Thyroid normal Lymph: LYMPHATIC: no lymphadenopathy noted Resp: COMMON NORMALS: normal respiratory effort, No retractions and No use of accessory muscles Cardio: COMMON NORMALS: no JVD and regular rate RATE: regular rate GI: COMMON NORMALS: Normal to inspection, nondistended, normoactive bowel sounds present, Soft to palpation and non-tender PALPATION: Yes Soft to palpation : COMMON NORMALS: Yes no CVA tenderness BLADDER/KIDNEY EXAM: Yes no CVA tenderness Back/Pelvis: COMMON NORMALS: no CVA tenderness, thoracic and lumbar spine normal to inspection and thoraco-lumbar ROM normal Extremity: COMMON NORMALS: normal to inspection, full ROM and no pedal edema Neuro: COMMON NORMALS: patient oriented x3 SENSORIUM/ORIENTATION: Yes alert MENINGEAL SIGNS: Yes no meningeal signs CRANIAL NERVES: Yes CN normal except as noted GAIT: Yes Normal gait present Psych: COMMON NORMALS: cooperative, speech normal and activity/motor behavior normal SPEECH: Yes normal speech MOOD & AFFECT: Yes depressed mood and Yes anxious Skin: COMMON NORMALS: no rashes or lesions noted and turgor normal GENERAL SKIN EXAM: no rashes or lesions noted and turgor normal Course 2 Vital Signs: Vital signs: Vital Signs Temperature 98.7 F 11/01/23 17:40 Pulse Rate 63 11/01/23 18:38 Respiratory Rate 17 11/01/23 18:38 Blood Pressure 147/87 11/01/23 18:38 Pulse Oximetry 98 11/01/23 18:38 Oxygen Delivery Me thod Room Air 11/01/23 18:38 MDM - Recheck/Abnormal Lab/Rx Medical Decision Making Patient presented to the emergency department today for evaluation treatment of multiple concerns. It sounds as the patient has chronic diarrhea and her primary care doctor is currently evaluating it as they have dropped off stool specimens for testing. At this time, we can check labs to evaluate for any abnormal electrolytes or dehydration or signs of infection but, will defer any further stool testing. Patient has concerns about memory issues. Patient was able to discuss with me her recent illness and I was not appreciating any signs of acute neurodeficit. I discussed the case with Dr. Eckert as I was not sure any type of brain imaging today would reveal signs of an acute stroke given the length of time patient has been complaining of symptoms. He graciously agreed to come see the patient at bedside and spent a considerable amount of time with patient and family. He spent quite a bit of time engaging with the patient in gathering history and symptomatology. During this evaluation, it was determined patient had previously been referred to neurology once or twice and she did not go. When asked about it she indicated that her has a significant influence on whether or not she seeks medical evaluation for things. She states that he is very reluctant about her going to the doctors. We tried to explain that here in the emergency department we only evaluate neurologically for acute concerns such as active strokes, etc. Things such as various dementias require a more specialized evaluation through neurology. Patient's family is very supportive about getting her to neurology for follow-up but patient still seems skeptical. We did obtain a CT examination of the patient's head which revealed no acute concerns or findings at this time. We went through all of the patient's lab work indicating an otherwise negative evaluation. Again, prior to discharge, I reiterated the importance of having follow-up with neurology and provided the contact information for Dr. Blackman's clinic. I encouraged her to also notify her primary care doctor that she was seen and evaluated here in the emergency department so they can continue to monitor her and to help facilitate referral for neurology follow-up. Patient was given strict return precautions for acute neurological change including visual changes, one-sided facial droop, slurred speech, severe headache, one-sided body weakness or numbness. Patient verbalizes understanding and agreement to treatment plan. Differential Diagnosis Unlikely encounter for medication refill, encounter for wound recheck, encounter for recheck of burn, encounter for removal of sutures or warfarin-induced coagulopathy Lab Data 11/01/23 19:09 11/01/23 19:[address] 11/01/23 20:36 IMPRESSION: No large territorial infarct or intracranial bleed. Laboratory Results WBC 5.15 10^3/uL (3.29-11.43) 11/01/23 19:09 RBC 3.69 10^6/uL (3.85-5.65) L 11/01/23 19:09 Hgb 11.80 g/dL (11.27-16.99) 11/01/23 19:09 Hct 35.0 % (36-47) L 11/01/23 19:09 MCV 94.9 fl (85-98) 11/01/23 19:09 MCH 32.0 pg (27-33) 11/01/23 19:09 MCHC 33.7 g/dL (30-55) 11/01/23 19:09 RDW 13.5 % (12.1-15.1) 11/01/23 19:09 Plt Count 182 10^3/cmm (157-399) 11/01/23 19:09 MPV 9.2 fL (7.4-10.4) 11/01/23 19:09 Neut % (Auto) 68.7 % 11/01/23 19:09 Lymph % (Auto) 25.0 % 11/01/23 19:09 [facility] % (Auto) 4.9 % 11/01/23 19:09 Eos % (Auto) 0.4 % 11/01/23 19:09 Baso % (Auto) 0.8 % 11/01/23 19:09 Neut # (Auto) 3.54 10^3/uL (1.8-7.7) 11/01/23 19:09 Lymph # (Auto) 1.3 10^3/uL (0.8-4.8) 11/01/23 19:09 [facility] # (Auto) 0.3 10^3/uL (0.2-0.9) 11/01/23 19:09 Eos # (Auto) 0.0 10^3/uL (0.0-0.8) 11/01/23 19:09 Baso # (Auto) 0.0 10^3/uL (0.0-0.1) 11/01/23 19:09 Nucleated RBC % (auto) 0 % 11/01/23 19:09 Nucleated RBCs # 0.0 /100WBC 11/01/23 19:09 Sodium 134 mmol/L (136-145) L 11/01/23 19:09 Potassium 3.7 mmol/L (3.5-5.1) 11/01/23 19:09 Chloride 99 mmol/L (98-107) 11/01/23 19:09 Carbon Dioxide 22 mmol/L (22-29) 11/01/23 19:09 Anion Gap 16.7 (5-19) 11/01/23 19:09 BUN 10 mg/dL (6-20) 11/01/23 19:09 Creatinine 0.9 mg/dL (0.5-0.9) 11/01/23 19:09 GFR Calculation 64.1 mL/min (90-130) L 11/01/23 19:09 Glucose 86 mg/dL (65-115) 11/01/23 19:09 Calculated Osmolality 276 mOsm/kg (285-295) L 11/01/23 19:09 Calcium 8.4 mg/dL (8.5-10.5) L 11/01/23 19:09 Magnesium 2.0 mg/dL (1.7-2.3) 11/01/23 19:09 Total Bilirubin 0.4 mg/dL (0.15-1.2) 11/01/23 19:09 AST 15 U/L (0-32) 11/01/23 19:09 ALT 12 U/L (0-33) 11/01/23 19:09 Alkaline Phosphatase 56 U/L (35-105) 11/01/23 19:09 Total Protein 6.3 g/dL (6.6-8.7) L 11/01/23 19:09 Albumin 4.2 g/dL (3.5-5.2) 11/01/23 19:09 Globulin 2.1 g/dL (1.3-4.6) 11/01/23 19:09 TSH 1.42 uIU/mL (0.27-4.20) 11/01/23 19:09 Urine Color Colorless (Yellow) 11/01/23 17:45 Urine Appearance Clear (CLEAR) 11/01/23 17:45 Urine pH 6.5 (5-7) 11/01/23 17:45 Ur Specific Mcdonald 1.000 (1.005-1.030) L 11/01/23 17:45 Urine Protein Neg (Negative) 11/01/23 17:45 Urine Glucose (UA) Norm (Normal) 11/01/23 17:45 Urine Ketones Negative (Negative) 11/01/23 17:45 Urine Blood Neg (Negative) 11/01/23 17:45 Urine Nitrate Negative (Negative) 11/01/23 17:45 Urine Bilirubin Neg (Negative) 11/01/23 17:45 Urine Urobilinogen Norm mg/dL (Negative) 11/01/23 17:45 Ur Leukocyte Esterase Negative (Negative) 11/01/23 17:45 All radiology interpretation(s) finalized by discharge Discharge Plan Discharge Patient Disposition: Home Clinical Impression: Chronic diarrhea, Confusion, hx of, without neuro findings Condition: Stable Prescriptions: No Action leflunomide 20 mg tablet 20 mg PO DAILY Qty: 90 1RF pantoprazole 40 mg tablet,delayed release (DR/EC) See Rx Instructions PO DAILY Qty: 90 1RF Rx Instructions: take in AM 30 minutes before meal PO daily; prednisone 5 mg tablet 5 mg PO DAILY Qty: 90 1RF losartan 25 mg tablet 100 mg PO DAILY venlafaxine [Effexor XR] 75 mg capsule,extended release 24hr 75 mg PO DAILY Qty: 30 1RF trazodone 100 mg tablet 100 mg PO .qhs Qty: 30 0RF clonazepam [Klonopin] 1 mg tablet 1 mg PO TID PRN (Reason: anxiety) Qty: 90 0RF levothyroxine 50 mcg tablet 50 mcg PO DAILY Discharge Orders: Discharge ED (Routine); Ordered 11/01/23 Ordered By: Jyoti Coppola Referrals: John Barroso MD [Primary Care Provider] - Discharge Diet: Usual diet Discharge Activity: Resume usual activity Patient Instructions: Diarrhea - Adult Activity Restrictions/Additional Instructions: Lab work today is very reassuring. You need show no signs of an infection, no signs of anemia. Your sodium is 134-are normal is 136. Your potassium is 3.7, thyroid is 1.42 and calcium is 8.4-all within normal ranges. Your urinalysis is negative for signs of infection or kidney issues. Your GFR is slightly decreased but your creatinine is stable-indicating you just need to drink a little more water. The scan of your head revealed no signs of any ischemic injury, aneurysmal injury, large residual effect of the brain tissue from previous stroke, mass, lesion, or cyst formation. As Dr. Eckert discussed with you, we highly recommend you follow-up with neurology to discuss issues with continued confusion. It is through their specialty evaluation that a more detailed diagnosis can be made and discussion of treatment options and expected clinical progression can be had. I am providing you the name and contact information for a neurologist here and encourage you to notify your primary care doctor of your evaluation here in the emergency department. As they are running stool test at this time, we did not perform any stool testing through the emergency department today as your COVID test will be completed much sooner than any taken from the emergency department tonight. If you develop slurred speech, change in vision, one-sided facial droop, one- sided body weakness or numbness, or severe headache you need to be seen and reevaluated through the emergency department. 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 Patient states that she feels like she is having trouble putting together her thoughts and is not thinking clearly. She states this has been going on now for a while. Patient's son is here and he indicates patient may seem a little slowed but, states that the patient was dropping off a stool specimen the primary care doctor's office and had mentioned her symptoms. He states they wanted her to come to the emergency department for evaluation. When asked why the patient was dropping off a stool specimen she indicated she has been having multiple episodes of diarrhea for a while now. She states it is brown and watery. She gets generalized abdominal cramps but has not been having any vomiting or fevers. No others at home similarly ill. She denies being on any antibiotics recently. Patient also mentions that about a week ago she was having a sore throat that was nearly consistent however, now it comes and goes indicating only left-sided discomfort. She states her voice will crack and is raspy. She also states that every so often she feels like her right hand goes tingly-she states it is the entire thing-not only specific fingers. She notes it happens more when she has her hand down in a certain position. Patient has a history of electrolyte abnormalities including hypokalemia. Patient's son states she gets low sodium. She also has abnormal thyroid function and takes levothyroxine. The son indicates patient has issues with significant panic attacks but seems to be doing better on Effexor since they switched over from her original anxiety medication. Patient deals with rheumatoid arthritis. PFSH ED 2 PFSH: Medical History Hypokalemia Seronegative rheumatoid arthritis of both hands Immunization counseling High risk medication use Inflammatory arthritis Positive ANTHONY (antinuclear antibody) Psychiatric care Attention-deficit hyperactivity disorder, predominantly inattentive type Nicotine dependence, cigarettes, uncomplicated Panic disorder [episodic paroxysmal anxiety] Generalized anxiety disorder Post-traumatic stress disorder, chronic Social History Smoking and tobacco/nicotine status: current every day tobacco/nicotine user cigarettes Packs smoked per day: 2 Years cigarettes smoked: 44 Quit status (tobacco/nicotine): has tried quititng Number of times tried to quit tobacco: 1 Second hand smoke exposure: Yes Alcohol intake: former Substance/Drug Use: never Lives independently: Yes Household members: spouse Housing: House Marital status: service: No Current occupational status: unemployed Pets and animals: Yes Do you think of yourself as: Straight/Heterosexual Current gender identity: Female Course 2 Vital Signs: Vital signs: Vital Signs Temperature 98.7 F 11/01/23 17:40 Pulse Rate 63 11/01/23 18:38 Respiratory Rate 17 11/01/23 18:38 Blood Pressure 147/87 11/01/23 18:38 Pulse Oximetry 98 11/01/23 18:38 Oxygen Delivery Me thod Room Air 11/01/23 18:38 MDM - Recheck/Abnormal Lab/Rx Lab Data I reviewed the patient's lab results. 11/01/23 19:09 11/01/23 19:[address] 11/01/23 20:36 IMPRESSION: No large territorial infarct or intracranial bleed. Laboratory Results WBC 5.15 10^3/uL (3.29-11.43) 11/01/23 19:09 RBC 3.69 10^6/uL (3.85-5.65) L 11/01/23 19:09 Hgb 11.80 g/dL (11.27-16.99) 11/01/23 19:09 Hct 35.0 % (36-47) L 11/01/23 19:09 MCV 94.9 fl (85-98) 11/01/23 19:09 MCH 32.0 pg (27-33) 11/01/23 19:09 MCHC 33.7 g/dL (30-55) 11/01/23 19:09 RDW 13.5 % (12.1-15.1) 11/01/23 19:09 Plt Count 182 10^3/cmm (157-399) 11/01/23 19:09 MPV 9.2 fL (7.4-10.4) 11/01/23 19:09 Neut % (Auto) 68.7 % 11/01/23 19:09 Lymph % (Auto) 25.0 % 11/01/23 19:09 [facility] % (Auto) 4.9 % 11/01/23 19:09 Eos % (Auto) 0.4 % 11/01/23 19:09 Baso % (Auto) 0.8 % 11/01/23 19:09 Neut # (Auto) 3.54 10^3/uL (1.8-7.7) 11/01/23 19:09 Lymph # (Auto) 1.3 10^3/uL (0.8-4.8) 11/01/23 19:09 [facility] # (Auto) 0.3 10^3/uL (0.2-0.9) 11/01/23 19:09 Eos # (Auto) 0.0 10^3/uL (0.0-0.8) 11/01/23 19:09 Baso # (Auto) 0.0 10^3/uL (0.0-0.1) 11/01/23 19:09 Nucleated RBC % (auto) 0 % 11/01/23 19:09 Nucleated RBCs # 0.0 /100WBC 11/01/23 19:09 Sodium 134 mmol/L (136-145) L 11/01/23 19:09 Potassium 3.7 mmol/L (3.5-5.1) 11/01/23 19:09 Chloride 99 mmol/L (98-107) 11/01/23 19:09 Carbon Dioxide 22 mmol/L (22-29) 11/01/23 19:09 Anion Gap 16.7 (5-19) 11/01/23 19:09 BUN 10 mg/dL (6-20) 11/01/23 19:09 Creatinine 0.9 mg/dL (0.5-0.9) 11/01/23 19:09 GFR Calculation 64.1 mL/min (90-130) L 11/01/23 19:09 Glucose 86 mg/dL (65-115) 11/01/23 19:09 Calculated Osmolality 276 mOsm/kg (285-295) L 11/01/23 19:09 Calcium 8.4 mg/dL (8.5-10.5) L 11/01/23 19:09 Magnesium 2.0 mg/dL (1.7-2.3) 11/01/23 19:09 Total Bilirubin 0.4 mg/dL (0.15-1.2) 11/01/23 19:09 AST 15 U/L (0-32) 11/01/23 19:09 ALT 12 U/L (0-33) 11/01/23 19:09 Alkaline Phosphatase 56 U/L (35-105) 11/01/23 19:09 Total Protein 6.3 g/dL (6.6-8.7) L 11/01/23 19:09 Albumin 4.2 g/dL (3.5-5.2) 11/01/23 19:09 Globulin 2.1 g/dL (1.3-4.6) 11/01/23 19:09 TSH 1.42 uIU/mL (0.27-4.20) 11/01/23 19:09 Urine Color Colorless (Yellow) 11/01/23 17:45 Urine Appearance Clear (CLEAR) 11/01/23 17:45 Urine pH 6.5 (5-7) 11/01/23 17:45 Ur Specific Mcdonald 1.000 (1.005-1.030) L 11/01/23 17:45 Urine Protein Neg (Negative) 11/01/23 17:45 Urine Glucose (UA) Norm (Normal) 11/01/23 17:45 Urine Ketones Negative (Negative) 11/01/23 17:45 Urine Blood Neg (Negative) 11/01/23 17:45 Urine Nitrate Negative (Negative) 11/01/23 17:45 Urine Bilirubin Neg (Negative) 11/01/23 17:45 Urine Urobilinogen Norm mg/dL (Negative) 11/01/23 17:45 Ur Leukocyte Esterase Negative (Negative) 11/01/23 17:45 Discharge Plan Discharge Patient Disposition: Home Clinical Impression: Chronic diarrhea, Confusion, hx of, without neuro findings Condition: Stable Prescriptions: No Action leflunomide 20 mg tablet 20 mg PO DAILY Qty: 90 1RF pantoprazole 40 mg tablet,delayed release (DR/EC) See Rx Instructions PO DAILY Qty: 90 1RF Rx Instructions: take in AM 30 minutes before meal PO daily; prednisone 5 mg tablet 5 mg PO DAILY Qty: 90 1RF losartan 25 mg tablet 100 mg PO DAILY venlafaxine [Effexor XR] 75 mg capsule,extended release 24hr 75 mg PO DAILY Qty: 30 1RF trazodone 100 mg tablet 100 mg PO .qhs Qty: 30 0RF clonazepam [Klonopin] 1 mg tablet 1 mg PO TID PRN (Reason: anxiety) Qty: 90 0RF levothyroxine 50 mcg tablet 50 mcg PO DAILY Discharge Orders: Discharge ED (Routine); Ordered 11/01/23 Ordered By: Jyoti Coppola Referrals: John Barroso MD [Primary Care Provider] - Discharge Diet: Usual diet Discharge Activity: Resume usual activity Patient Instructions: Diarrhea - Adult Activity Restrictions/Additional Instructions: Lab work today is very reassuring. You need show no signs of an infection, no signs of anemia. Your sodium is 134-are normal is 136. Your potassium is 3.7, thyroid is 1.42 and calcium is 8.4-all within normal ranges. Your urinalysis is negative for signs of infection or kidney issues. Your GFR is slightly decreased but your creatinine is stable-indicating you just need to drink a little more water. The scan of your head revealed no signs of any ischemic injury, aneurysmal injury, large residual effect of the brain tissue from previous stroke, mass, lesion, or cyst formation. As Dr. Eckert discussed with you, we highly recommend you follow-up with neurology to discuss issues with continued confusion. It is through their specialty evaluation that a more detailed diagnosis can be made and discussion of treatment options and expected clinical progression can be had. I am providing you the name and contact information for a neurologist here and encourage you to notify your primary care doctor of your evaluation here in the emergency department. As they are running stool test at this time, we did not perform any stool testing through the emergency department today as your COVID test will be completed much sooner than any taken from the emergency department tonight. If you develop slurred speech, change in vision, one-sided facial droop, one- sided body weakness or numbness, or severe headache you need to be seen and reevaluated through the emergency department. 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
[2023-11-01 19:47] LABS: Basophils % 0.8 %; Eosinophils % 0.4 %; Lymphocytes # 1.3 10^3/uL (0.8-4.8); Mean Corpuscular HGB Conc 33.7 g/dL (30-55); Mean Corpuscular Volume 94.9 fl (85-98); Mean Platelet Volume 9.2 fL (7.4-10.4); Monocytes # 0.3 10^3/uL (0.2-0.9); Monocytes % 4.9 %; Neutrophils # 3.54 10^3/uL (1.8-7.7); Neutrophils % 68.7 %; Nucleated Red Blood Cells % 0 %; Platelet Count 182 10^3/cmm (157-399); Red Blood Count 3.69 10^6/uL (3.85-5.65); Red Cell Distribution Width 13.5 % (12.1-15.1); White Blood Count 5.15 10^3/uL (3.29-11.43)
[2023-11-01 20:05] LABS: Add Urine Microscopic? NO; Charge for UA Resulting for Rev
[2023-11-01 20:09] LABS: Bilirubin Urine Neg (Negative); Blood Urine Neg (Negative); Glucose Urine UA Norm (Normal); Ketones Urine Negative (Negative); Leukocyte Esterase Urine Negative (Negative); Nitrate Urine Negative (Negative); Protein Urine Neg (Negative); Urine Appearance Clear (CLEAR); Urine Color Colorless (Yellow); Urobilinogen Urine Norm (Negative); pH Urine 6.5 (5-7)
[2023-11-01 20:19] LABS: Alanine Aminotransferase 12 U/L (0-33); Albumin Level 4.2 g/dL (3.5-5.2); Alkaline Phosphatase 56 U/L (35-105); Anion Gap 16.7 (5-19); Aspartate Amino Transferase 15 U/L (0-32); Blood Urea Nitrogen 10 mg/dL (6-20); Calcium 8.4 mg/dL (8.5-10.5); Carbon Dioxide 22 mmol/L (22-29); Chloride 99 mmol/L (98-107); Creatinine Clr Calc Pharmacy 57.0758; Globulin 2.1 g/dL (1.3-4.6); Glomerular Filtration Rate 64.1 mL/min (90-130); Glucose 86 mg/dL (65-115); Osmolality Calculated 276 mOsm/kg (285-295); Potassium 3.7 mmol/L (3.5-5.1); Sodium 134 mmol/L (136-145); Thyroid Stimulating Hormone 1.42 uIU/mL (0.27-4.20); Total Bilirubin 0.4 mg/dL (0.15-1.2); Total Protein 6.3 g/dL (6.6-8.7)
--- NOTE | 2023-11-01 20:36 | CTR_ITS ---
PROCEDURE INFORMATION: Exam: CT Head Without Contrast Exam date and time: 11/01/2023 8:48 PM Age: 57 years old Clinical indication: Altered mental status/memory loss; Patient HX: Patient seems alert and award. Patient able to walk by herself; Additional info: Cognition impairment TECHNIQUE: Imaging protocol: Computed tomography of the head without contrast. Radiation optimization: All CT scans at this facility use at least one of these dose optimization techniques: automated exposure control; mA and/or kV adjustment per patient size (includes targeted exams where dose is matched to clinical indication); or iterative reconstruction. COMPARISON: CR XR cervical spine 3V* [id number] 06/20/2023 3:19 PM RADIATION DOSE METRICS: Total DLP (mGy-cm): 1048.58 FINDINGS: Brain: There is mineralization of bilateral basal ganglia, age-related. No intracranial bleed. No intracranial masses. No large territorial infarct. There is mild form of chronic ischemic small vessel disease. Cerebral ventricles: No ventriculomegaly. Paranasal sinuses: Visualized sinuses are unremarkable. No fluid levels. Mastoid air cells: Visualized mastoid air cells are well aerated. Bones/joints: Unremarkable. No acute fracture. Soft tissues: Unremarkable. Vasculature: There are bilateral coronary and left vertebral artery calcifications. CT/CT head wo con* [id number] IMPRESSION: No large territorial infarct or intracranial bleed.
== END 2023-11-01 22:00 | disposition home or self-care (01) ==
PROVIDERS: Emergency Provider Physician Assistant; PCP Family Medicine
DX: R41.0 Disorientation, unspecified (principal); K52.9 Noninfective gastroenteritis and colitis, unspecified; F17.210 Nicotine dependence, cigarettes, uncomplicated
CPT/HCPCS: 36415; 70450; 80053; 81003; 83735; 84443; 85025; 93005; 99284

== ENCOUNTER 2024-04-20 13:45 | Inpatient (IN) | payer OTHER, SELFPAY ==
[2024-04-20] VITALS (23 sets, daily range): BP systolic 105–174; BP diastolic 59–114; PULSE 55–89; RESP 10–19; TEMP 36.7–36.8; O2SAT 93–100; BMI 23.2
[2024-04-20 15:04] LABS: Basophils % 0.5 %; Hematocrit 34.1 % (36-47); Lymphocytes % 11.2 %; Mean Corpuscular HGB Conc 34.6 g/dL (30-55); Mean Corpuscular Hemoglobin 31.8 pg (27-33); Mean Corpuscular Volume 91.9 fl (85-98); Mean Platelet Volume 8.9 fL (7.4-10.4); Monocytes # 0.3 10^3/uL (0.2-0.9); Monocytes % 3.1 %; Neutrophils # 7.28 10^3/uL (1.8-7.7); Neutrophils % 84.9 %; Nucleated Red Blood Cells % 0 %; Platelet Count 236 10^3/cmm (157-399); Red Blood Count 3.71 10^6/uL (3.85-5.65); White Blood Count 8.58 10^3/uL (3.29-11.43)
[2024-04-20 15:11] LABS: Alanine Aminotransferase 12 U/L (0-33); Albumin Level 4.4 g/dL (3.5-5.2); Alkaline Phosphatase 61 U/L (35-105); Anion Gap 16.2 (5-19); Aspartate Amino Transferase 11 U/L (0-32); Blood Urea Nitrogen 14 mg/dL (8-23); Calcium 8.7 mg/dL (8.5-10.5); Carbon Dioxide 22 mmol/L (22-29); Chloride 86 mmol/L (98-107); Creatinine Clr Calc Pharmacy 55.7247; Globulin 2.2 g/dL (1.3-4.6); Glomerular Filtration Rate 63.9 mL/min (90-130); Glucose 98 mg/dL (65-115); Osmolality Calculated 250 mOsm/kg (285-295); Potassium 4.2 mmol/L (3.5-5.1); Sodium 120 mmol/L (136-145); Total Bilirubin 0.4 mg/dL (0.15-1.2); Total Protein 6.6 g/dL (6.6-8.7)
--- NOTE | 2024-04-20 16:15 | XRR_ITS ---
PROCEDURE INFORMATION: Exam: XR Chest Exam date and time: 04/20/2024 4:41 PM Age: 58 years old Clinical indication: Other: AMS TECHNIQUE: Imaging protocol: Radiologic exam of the chest. Views: 1 view. COMPARISON: CR XR chest 1V portable [id number] 02/25/2023 8:18 PM FINDINGS: Lungs: Lungs are hyperexpanded. Pleural spaces: Unremarkable. No pleural effusion. No pneumothorax. Heart/Mediastinum: Unremarkable. No cardiomegaly. Bones/joints: Unremarkable. XR/XR chest 1V portable [id number] IMPRESSION: The lungs are hyperexpanded. This can be seen with COPD. Please correlate clinically.
--- NOTE | 2024-04-20 16:17 | ED_ITS ---
HPI - Recheck/Abnormal Lab/Rx 2 General: Chief Complaint: Recheck/Abnormal Lab/Rx Stated Complaint: soduim test Time Seen by Provider: 04/20/24 16:03 Source: patient and family Mode of arrival: ambulatory History of Present Illness: 58-year-old female is here stating she w ants to have her sodium checked she is here with family as well he states she has had some confusion lately and her physician was concerned that she had had low sodium. She denies any fever denies any headache she is able answer most my questions appropriate but seems to get confused from time to time. No focal deficits. Review of Systems 2 Const: Denies: fever(s), chills, body aches or change in appetite Eyes: Denies: blurry vision or eye discomfort ENMT: Denies: throat pain or dental pain Card: Denies: chest pain Resp: Denies: dyspnea GI: Denies: abdominal pain, nausea, vomiting or diarrhea : Denies: dysuria Musc: Denies: neck pain or back pain Skin/Breast: Denies: rash Neuro: Reports: confusion; Denies: headache(s) PFSH ED 2 PFSH: Medical History Hypokalemia Seronegative rheumatoid arthritis of both hands Immunization counseling High risk medication use Inflammatory arthritis Positive ANTHONY (antinuclear antibody) Psychiatric care Attention-deficit hyperactivity disorder, predominantly inattentive type Nicotine dependence, cigarettes, uncomplicated Panic disorder [episodic paroxysmal anxiety] Generalized anxiety disorder Post-traumatic stress disorder, chronic Social History Smoking and tobacco/nicotine status: current every day tobacco/nicotine user cigarettes Packs smoked per day: 2 Years cigarettes smoked: 44 Quit status (tobacco/nicotine): has tried quititng Number of times tried to quit tobacco: 1 Second hand smoke exposure: Yes Alcohol intake: former Substance/Drug Use: never Lives independently: Yes Household members: spouse Housing: House Marital status: service: No Current occupational status: unemployed Pets and animals: Yes Do you think of yourself as: Straight/Heterosexual Current gender identity: Female Physical Exam 2 Const: COMMON NORMALS: alert EXAM LIMITATIONS: altered mental status O RIENTATION/CONSCIOUSNESS: Yes oriented to person, Yes oriented to place and Yes oriented to time HENMT: COMMON NORMALS: normocephalic and atraumatic HEAD & SCALP: n ormocephalic and atraumatic Eye: COMMON NORMALS: Equal, round and reactive pupils present and EOMs intact bilaterally PUPIL: Yes Equal, round and reactive pupils present Neck/C-Spine: COMMON NORMALS: full ROM and supple Chest: COMMONS NORMALS: normal inspection of the chest and normal palpation of entire chest wall Resp: COMMON NORMALS: normal respiratory effort, No use of accessory muscles and clear to auscultation bilaterally AUSCULTATION: clear to auscultation bilaterally Cardio: COMMON NORMALS: regular rate, regular rhythm and No murmurs present (Cardio) RATE: regular rate RHYTHM: regular rhythm GI: COMMON NORMALS: Normal to inspection, nondistended, normoactive bowel sounds present, Soft to palpation, non-tender and no masses PALPATION: Yes Soft to palpation Extremity: COMMON NORMALS: normal to inspection and full ROM Neuro: COMMON NORMALS: moves all extremities and no focal motor deficits S ENSORIUM/ORIENTATION: Yes alert, Yes oriented to person, Yes oriented to place and Yes oriented to time Psych: COMMON NORMALS: Normal thought process present and cooperative T HOUGHT PROCESS: Normal thought process present Skin: COMMON NORMALS: no rashes or lesions noted and no wounds GENERAL SKIN EXAM: no rashes or lesions noted Course 2 Vital Signs: Vital signs: Vital Signs Temperature 98.3 F 04/20/24 14:46 Pulse Rate 59 L 04/20/24 16:52 Blood Pressure 162/91 04/20/24 16:52 Pulse Oximetry 100 04/20/24 16:52 Oxygen Delivery Me thod Room Air 04/20/24 14:46 MDM - Recheck/Abnormal Lab/Rx Medical Decision Making Patient presents with hyponatremia he otherwise well-appearing here I did speak to the hospitalist will admit at this time Medical Records I reviewed the patient's medical records. Lab Data I reviewed the patient's lab results. 04/20/24 14:47 04/20/24 18:07 Radiology Impressions Chest X-Ray 04/20/24 16:15 IMPRESSION: The lungs are hyperexpanded. This can be seen with COPD. Please correlate clinically. Head CT 04/20/24 18:04 IMPRESSION: There are senescent changes of the brain as described above. No evidence for large acute ischemic infarction or acute intracranial injury. Laboratory Results WBC 8.58 10^3/uL (3.29-11.43) 04/20/24 14:47 RBC 3.71 10^6/uL (3.85-5.65) L 04/20/24 14:47 Hgb 11.80 g/dL (11.27-16.99) 04/20/24 14:47 Hct 34.1 % (36-47) L 04/20/24 14:47 MCV 91.9 fl (85-98) 04/20/24 14:47 MCH 31.8 pg (27-33) 04/20/24 14:47 MCHC 34.6 g/dL (30-55) 04/20/24 14:47 RDW 13.0 % (12.1-15.1) 04/20/24 14:47 Plt Count 236 10^3/cmm (157-399) 04/20/24 14:47 MPV 8.9 fL (7.4-10.4) 04/20/24 14:47 Neut % (Auto) 84.9 % 04/20/24 14:47 Lymph % (Auto) 11.2 % 04/20/24 14:47 [place] % (Auto) 3.1 % 04/20/24 14:47 Eos % (Auto) 0.0 % 04/20/24 14:47 Baso % (Auto) 0.5 % 04/20/24 14:47 Neut # (Auto) 7.28 10^3/uL (1.8-7.7) 04/20/24 14:47 Lymph # (Auto) 1.0 10^3/uL (0.8-4.8) 04/20/24 14:47 [place] # (Auto) 0.3 10^3/uL (0.2-0.9) 04/20/24 14:47 Eos # (Auto) 0.0 10^3/uL (0.0-0.8) 04/20/24 14:47 Baso # (Auto) 0.0 10^3/uL (0.0-0.1) 04/20/24 14:47 Nucleated RBC % (auto) 0 % 04/20/24 14:47 Nucleated RBCs # 0.0 /100WBC 04/20/24 14:47 Sodium 120 mmol/L (136-145) L 04/20/24 14:47 Potassium 4.2 mmol/L (3.5-5.1) 04/20/24 14:47 Chloride 86 mmol/L (98-107) L 04/20/24 14:47 Carbon Dioxide 22 mmol/L (22-29) 04/20/24 14:47 Anion Gap 16.2 (5-19) 04/20/24 14:47 BUN 14 mg/dL (8-23) 04/20/24 14:47 Creatinine 0.9 mg/dL (0.5-0.9) 04/20/24 14:47 GFR Calculation 63.9 mL/min (90-130) L 04/20/24 14:47 Glucose 98 mg/dL (65-115) 04/20/24 14:47 Calculated Osmolality 250 mOsm/kg (285-295) L 04/20/24 14:47 Calcium 8.7 mg/dL (8.5-10.5) 04/20/24 14:47 Total Bilirubin 0.4 mg/dL (0.15-1.2) 04/20/24 14:47 AST 11 U/L (0-32) 04/20/24 14:47 ALT 12 U/L (0-33) 04/20/24 14:47 Alkaline Phosphatase 61 U/L (35-105) 04/20/24 14:47 Total Protein 6.6 g/dL (6.6-8.7) 04/20/24 14:47 Albumin 4.4 g/dL (3.5-5.2) 04/20/24 14:47 Globulin 2.2 g/dL (1.3-4.6) 04/20/24 14:47 All radiology interpretation(s) finalized by discharge EKG Data EKG 1: I personally reviewed and interpreted this EKG as follows: EKG interpretation date: 04/20/24 EKG interpretation time: 16:25 Interpretation: nsr hr [address] or t wave abnormalities qrs 78 qtc 417 Discharge Plan Discharge Patient Disposition: Admitted As Inpatient Admit Provider: Sebastien Contreras Clinical Impression: Hyponatremia Condition: Stable Coding Level of Care Code ED Senior Qa Automation Engineer for Chg Fwadriel
--- NOTE | 2024-04-20 16:25 | ECG_ITS ---
[facility] Test Date: 2024-04-20 Pat Name: Angelita Villarreal Department: Room: Gender: Female Instrument Designer: : 1965 Requested By: Lawrence Chandra Order Number: [id number] Ezekiel MD: Manuel Berger M.D. Measurements Intervals [place] Rate: 64 P: 29 [place]: 202 QRS: 69 QRSD: 78 T: 73 QT: 407 QTc: 423 Interpretive Statements SINUS RHYTHM SEPTAL MYOCARDIAL INFARCTION , PROBABLY OLD [40+ ms Q WAVE IN V1/V2] Compared to ECG 11/01/2023 18:30:47 No significant changes Electronically Signed On 04-21-2024 7:51:22 CDT by Manuel Berger M.D. [email or web address] [email or web address] [facility].[email or web address]/store/OM/[id number]
[2024-04-20] MEDS: sodium chloride 0.9% 1,000 ML 999 ML IV (16:26)
[2024-04-20] MEDS: diazePAM 5 mg Tablet PO (18:03)
--- NOTE | 2024-04-20 18:04 | CTR_ITS ---
PROCEDURE INFORMATION: Exam: CT Abdomen And Pelvis Without Contrast Exam date and time: 04/20/2024 6:49 PM Age: 58 years old Clinical indication: Abdominal pain; Acute; Additional info: Abdominal pain, diarrhea, weight loss TECHNIQUE: Imaging protocol: Computed tomography of the abdomen and pelvis without contrast. Radiation optimization: All CT scans at this facility use at least one of these dose optimization techniques: automated exposure control; mA and/or kV adjustment per patient size (includes targeted exams where dose is matched to clinical indication); or iterative reconstruction. COMPARISON: CR XR pelvis 1-2V* [id number] 08/06/2022 12:37 PM RADIATION DOSE METRICS: Total DLP (mGy-cm): 366.37 FINDINGS: Liver: Normal. No mass. Gallbladder and biliary ducts: Normal. No calcified stones. No ductal dilation. Pancreas: Normal. No ductal dilation. Spleen: Normal. No splenomegaly. Adrenal glands: Normal. No mass. Kidneys and ureters: Normal. No hydronephrosis. Stomach and bowel: Severe diverticulosis. Mild diffuse colonic wall thickening with mild wall thickening of the sigmoid colon concerning for colitis versus diverticulitis. Fecalization of stool within the small bowel suggesting slow transit. Appendix: No evidence of appendicitis. Intraperitoneal space: Mild haziness of the mesentery. Vasculature: Unremarkable. No abdominal aortic aneurysm. Lymph nodes: Unremarkable. No enlarged lymph nodes. Urinary bladder: The bladder is distended. Reproductive: Simple cyst within the right adnexa measuring approximally 2.1 x 1.3 cm, no follow-up needed. Bones/joints: Moderate spondylosis with intervertebral disc space narrowing and vacuum disc phenomena at L5-S1. Soft tissues: Unremarkable. CT/CT abdomen pelvis wo con [id number] IMPRESSION: Severe diverticulosis. Mild diffuse colonic wall thickening with mild wall thickening of the sigmoid colon concerning for colitis versus diverticulitis. Diffuse haziness to the mesentery which may be reactive in etiology. Fecalization of stool within the small bowel suggesting slow transit.
--- NOTE | 2024-04-20 18:04 | CTR_ITS ---
PROCEDURE INFORMATION: Exam: CT Head Without Contrast Exam date and time: 04/20/2024 6:46 PM Age: 58 years old Clinical indication: Other: AMS TECHNIQUE: Imaging protocol: Computed tomography of the head without contrast. Radiation optimization: All CT scans at this facility use at least one of these dose optimization techniques: automated exposure control; mA and/or kV adjustment per patient size (includes targeted exams where dose is matched to clinical indication); or iterative reconstruction. COMPARISON: CT head wo con* [id number] 11/01/2023 8:48 PM RADIATION DOSE METRICS: Total DLP (mGy-cm): 1057.88 FINDINGS: Brain: Periventricular and subcortical white matter low densities are present which at this age likely represent microvascular ischemic change. No evidence for large acute ischemic infarction. Please note acute ischemia can be occult by head CT. No evidence for acute intracranial hemorrhage.Benign globus pallidus calcifications are present. Cerebral ventricles: No ventriculomegaly. Paranasal sinuses: Visualized sinuses are unremarkable. No fluid levels. Mastoid air cells: Visualized mastoid air cells are well aerated. Bones: Unremarkable. No acute fracture. Soft tissues: Unremarkable. CT/CT head wo con* [id number] IMPRESSION: There are senescent changes of the brain as described above. No evidence for large acute ischemic infarction or acute intracranial injury.
--- NOTE | 2024-04-20 18:04 | P.HP_ITS ---
Providers/Chief Complaint 2 Admitting Physician: Sebastien Contreras MD Primary Care Provider: John Barroso MD Chief Complaint: soduim test History of Present Illness Angelita Villarreal is a 58 year old female with a past medical history of emphysema, smoker, anxiety, hypothyroidism, who presents to [facility] due to increased confusion. Currently patient is alert to person, to place, not to time, she follows all commands, according to patient's family patient's been having episodes of confusion, patient's family has been worried about her sodium levels as been followed by Dr. arreola outpatient, she was sent in to recheck her sodium level due to increased confusion, denies any nausea, no vomiting, does report feeling unwell, feeling dizzy at times, having a listless feeling is her biggest complaint. She tells me that she will go out on the porch, with a smoke, and a glass of water, and have no significant motivation. She tells me that she has chronic diarrhea she does not know why he, denies any bloody or black stools, does report weight loss, does report nonspecific abdominal pain, in the epigastric region, denies any alcohol use, denies any drug use. She tells me that for the last few months, she has been having trouble swallowing, solids and liquids, she tells me that its gotten so difficult that whenever she needs to take her pills with each pill she drinks a cup of water, she tells me that she goes through at least 3 L of water as sitting, and that is just with her pills, she has to drink more water when she eats food. Her family has been worried about her sertraline as a cause behind her hyponatremia so they have been slowly lowering the dose current, currently she is taking half a pill Review of Systems 2 Const: Reports: fatigue and malaise; Denies: fever(s) or chills Card: Denies: chest pain Resp: Denies: dyspnea GI: Reports: abdominal pain and diarrhea; Denies: nausea or vomiting Neuro: Reports: dizziness and confusion; Denies: headache(s), numbness in extremities, weakness in extremities or Slurred speech present Medications/Allergies Home Medications Medication Instructions Recorded Confirmed Last Taken Type losartan 25 mg tablet 100 mg PO DAILY 08/20/23 04/09/24 Unknown History prednisone 5 mg tablet 5 mg PO DAILY #90 tabs 01/08/24 04/09/24 Unknown Rx ondansetron 8 mg disintegrating 8 mg PO Q8H PRN nausea and 03/26/24 04/09/24 Unknown Rx tablet vomiting #20 tabs pantoprazole 40 mg tablet,delayed 40 mg PO BID 12 weeks #168 tabs 03/26/24 04/09/24 Unknown Rx release acetaminophen 500 mg tablet 500 mg PO Q6H PRN 04/09/24 04/09/24 Unknown History (Tylenol Extra Strength) diazepam 5 mg tablet 5 mg PO BID PRN anxiety #60 tabs 04/09/24 04/09/24 Unknown Rx latanoprost 0.005 % eye drops, 1 drp ophthalmic (eye) DAILY 04/09/24 04/09/24 Unknown History emulsion levothyroxine 50 mcg tablet 75 mcg PO DAILY 04/09/24 04/09/24 Unknown History menthol 1 % topical powder (Gold 1 applic topical DAILY 04/09/24 04/09/24 Unknown History [place] Medicated Foot) sertraline 100 mg tablet (Zoloft) 100 mg PO DAILY #30 tabs 04/09/24 04/09/24 Unknown Rx trazodone 100 mg tablet 100 mg PO .qhs #30 tabs 04/09/24 04/09/24 Unknown Rx Allergies Allergy/AdvReac Type Severity Reaction Status Date / Time aspirin Allergy Feels Like Verified 04/20/24 14:52 Brain Bleeds Methylcodone AdvReac Intermediate Head hurts Uncoded 04/20/24 14:52 inhalers AdvReac Mild ADR-Headach Uncoded 04/20/24 14:52 e PFSH Acute 2 PFSH: Medical History Hypokalemia Seronegative rheumatoid arthritis of both hands Immunization counseling High risk medication use Inflammatory arthritis Positive ANTHONY (antinuclear antibody) Psychiatric care Attention-deficit hyperactivity disorder, predominantly inattentive type Nicotine dependence, cigarettes, uncomplicated Panic disorder [episodic paroxysmal anxiety] Generalized anxiety disorder Post-traumatic stress disorder, chronic Social History Smoking and tobacco/nicotine status: current every day tobacco/nicotine user cigarettes Packs smoked per day: 2 Years cigarettes smoked: 44 Quit status (tobacco/nicotine): has tried quititng Number of times tried to quit tobacco: 1 Second hand smoke exposure: Yes Alcohol intake: former Substance/Drug Use: never Lives independently: Yes Household members: spouse Housing: House Marital status: service: No Current occupational status: unemployed Pets and animals: Yes Do you think of yourself as: Straight/Heterosexual Current gender identity: Female Vitals/I&O/Wt Last Vital Signs Temp 98.3 F 04/20/24 14:46 Pulse 59 L 04/20/24 16:52 BP 162/91 04/20/24 16:52 Pulse Ox 100 04/20/24 16:52 O2 Del Method Room Air 04/20/24 14:46 04/20/24 04/20/24 04/20/24 06:59 14:59 22:59 Intake Total 1000 / 1000 Balance 1000 / 1000 Weight last 48 hrs Weight 57.606 kg Physical Exam 2 Const: COMMON NORMALS: no acute distress and patient oriented x3 HENMT: COMMON NORMALS: normocephalic HEAD & SCALP: normocephalic Eye: COMMON NORMALS: Equal, round and reactive pupils present and EOMs intact bilaterally Neck/C-Spine: COMMON NORMALS: no JVD Lymph: LYMPHATIC: no lymphadenopathy noted Resp: COMMON NORMALS: normal respiratory effort, No retractions, No use of accessory muscles and clear to auscultation bilaterally AUSCULTATION: clear to auscultation bilaterally Cardio: COMMON NORMALS: regular rate, regular rhythm, S1 normal heart sound present and S2 normal heart sound present RATE: regular rate RHYTHM: r egular rhythm HEART SOUNDS: S1 normal heart sound present and S2 normal heart sound present GI: OTHER: Abdomen soft, slightly distended, has exquisite epigastric tenderness, to palpation, density felt in the epigastrium, no guarding, rebound, rigidity, good bowel sounds, Extremity: COMMON NORMALS: no calf tenderness and no pedal edema Neuro: COMMON NORMALS: patient oriented x3, CN's II-XII intact bilaterally and moves all extremities Psych: COMMON NORMALS: mental status grossly normal Data 04/20/24 14:47 04/20/24 14:47 A&P Assessment and plan (1) Acute encephalopathy: (2) Hyponatremia: (3) Polydipsia: (4) Abdominal pain: (5) Dysphagia: Plan Acute encephalopathy -Likely secondary to hyponatremia ? Neurochecks ? Aspiration precautions ? Seizure precautions ? CT head ? UA Acute hyponatremia ? Likely secondary to polydipsia, from trouble swallowing ? She did receive a liter of fluid in the ER, likely sodium will worsen, recheck sodium in the ER ? Patient can go to the ICU for close monitoring her sodium levels ? Monitor sodium every 4 hours ? Restrict fluid intake to 1000 cc Dysphagia ? General surgery consulted, Dr. Burnette -EGD tomorrow morning Abdominal pain ? With weight loss, epigastric discomfort, diarrhea, dysphagia -CT scan abdomen pelvis ? Stool studies Anxiety -Patient is quite anxious in the ER, continue to hold her home diazepam Full code Lovenox for DVT prophylaxis Keep clear liquids for now Attestations 2 Medical Necessity Statement*: Patient requires hospitalization, inpatient, greater than 2 midnights, for acute hyponatremia, dysphagia, abdominal pain, acute encephalopathy Diagnoses Acute encephalopathy G93.40 Hyponatremia E87.1 Polydipsia R63.1 Abdominal pain R10.9 Dysphagia R13.10
--- NOTE | 2024-04-20 18:08 | ECG_ITS ---
[facility] Test Date: 2024-04-20 Pat Name: Angelita Villarreal Department: Room: ED Gender: Female Sourcer: : 1965 Requested By: Sebastien Contreras Order Number: [id number] Ezekiel MD: Manuel Berger M.D. Measurements Intervals [place] Rate: 59 P: 24 NC: 206 QRS: 71 QRSD: 79 T: 74 QT: 424 QTc: 421 Interpretive Statements SINUS BRADYCARDIA SEPTAL MYOCARDIAL INFARCTION , PROBABLY OLD [40+ ms Q WAVE IN V1/V2] Compared to ECG 04/20/2024 16:25:42 Sinus rhythm no longer present Myocardial infarct finding still present Electronically Signed On 04-21-2024 7:50:46 CDT by Manuel Berger M.D. [email or web address] [email or web address] county general hospitalSensing Electromagnetic Plusashtabula county medical center.ETAOI Systems Ltd/store/NU/[id number] f
[2024-04-20] MEDS: enoxaparin 40 mg/0.4 mL Syringe SUBCUT (18:34)
[2024-04-20] MEDS: pantoprazole 40 mg SDV IVP (18:35)
[2024-04-20 18:43] LABS: Troponin(5th) Baseline 8 ng/L (0-10)
[2024-04-20 18:47] LABS: Chol HDL Ratio 3.59 mg/dL (0.0-4.40); Cholesterol 219 mg/dL (0-200); HDL Cholesterol 61 mg/dL (60-100); LDL Cholesterol Calculated 140 mg/dL (50-129); Magnesium 1.8 mg/dL (1.7-2.3); NT Pro B Type Natriuretic Pept 168 pg/mL (0-125); Sodium 131 mmol/L (136-145); Thyroid Stimulating Hormone 2.37 uIU/mL (0.27-4.20); Triglycerides 89 mg/dL (0-150)
[2024-04-20 18:56] LABS: Alcohol Level < 10 mg/dL (0-10)
[2024-04-20 19:17] LABS: Lactic Sepsis W/Reflex 0.5 mmol/L (0.5-2.2)
[2024-04-20 19:18] LABS: Charge for UA Resulting for Rev
[2024-04-20 19:20] LABS: Bilirubin Urine Negative (Negative); Blood Urine Trace (Negative); Glucose Urine UA Negative (Normal); Ketones Urine Negative (Negative); Leukocyte Esterase Urine Negative (Negative); Nitrate Urine Negative (Negative); Protein Urine Negative (Negative); Specific Gravity, Urine 1.003 (1.005-1.030); Urine Appearance Clear (CLEAR); Urine Color Yellow (Yellow); Urobilinogen Urine 0.2 mg/dL (Negative); pH Urine 6.5 (5-7)
[2024-04-20] MEDS: nicotine 21 mg Patch 1 PATCH TRANSDERMA (19:22)
[2024-04-20 19:25] LABS: Bacteria Urine None Seen /hpf; Hyaline Casts Urine 0-4 /lpf; RBC Urine 0-2 /hpf (0-2); Squamous Epithelial Cell Urine 0-5 /hpf (0-5); WBC Urine 0-5 /hpf (0-5)
[2024-04-20 19:29] LABS: Amphetamines Screen Urine Negative (Negative); Barbiturates Screen Urine Negative (Negative); Benzodiazepines Screen Urine Positive (Negative); Cocaine Screen Urine Negative (Negative); Opiate Screen Urine Negative (Negative); PCP Screen Urine Negative (Negative); THC Screen Urine Negative (Negative)
--- NOTE | 2024-04-20 20:02 | ECG_ITS ---
[facility] Test Date: 2024-04-20 Pat Name: Angelita Villarreal Department: Room: ICU03 Gender: Female Bad Credit Collector: : 1965 Requested By: Sebastien Contreras Order Number: [id number] Ezekiel MD: Manuel Berger M.D. Measurements Intervals [place] Rate: 66 P: 70 IN: 206 QRS: -15 QRSD: 82 T: -5 QT: 415 QTc: 436 Interpretive Statements SINUS RHYTHM SEPTAL MYOCARDIAL INFARCTION , OF INDETERMINATE AGE [40+ ms Q WAVE IN V1/V2] INFERIOR MYOCARDIAL INFARCTION , OF INDETERMINATE AGE [40+ ms Q WAVE AND/OR ST/T ABNORMALITY IN II/aVF] INTERPRETATION BASED ON A DEFAULT AGE OF 40 YEARS Compared to ECG 04/20/2024 18:08:59 Sinus bradycardia no longer present Myocardial infarct finding still present Electronically Signed On 04-21-2024 7:52:49 CDT by Manuel Berger M.D. [email or web address].Charter CommunicationsVantage Analyticshelen [facility].AmeriWorks/store/NU/[id number] f
[2024-04-20 20:09] LABS: Estmated Average Glucose 94; Hemoglobin A1C 4.9 % (4.0-6.0)
[2024-04-20 20:29] LABS: Ammonia 16 umol/L (11-51); Sodium 131 mmol/L (136-145)
[2024-04-20] MEDS: trazodone 100 mg Tablet PO (20:37)
[2024-04-20] MEDS: sodium chloride 0.9% 1,000 ML 30 ML IV (20:39)
[2024-04-20 21:24] LABS: Sodium 131 mmol/L (136-145)
[2024-04-20 21:27] LABS: Troponin 5 2HR 7.42 ng/L (0-10)
[2024-04-20 21:30] LABS: Troponin 5 2HR Delta -0.58 ABS# (0-10)
[2024-04-20] MEDS: efferdent effervescent 1 EACH DENTAL (21:52)
[2024-04-20 22:32] LABS: Cortisol Random 0.77 ug/dL (2.47-19.5)
[2024-04-21] VITALS (23 sets, daily range): BP systolic 112–158; BP diastolic 67–102; PULSE 55–67; RESP 4–19; TEMP 36.1–36.8; O2SAT 94–100; BMI 24.0; BMI 23.9
--- NOTE | 2024-04-21 00:30 | ECG_ITS ---
[facility] Test Date: 2024-04-21 Pat Name: Angelita Villarreal Department: Room: ICU03 Gender: Female Rivet Tester: : 1965 Requested By: Sebastien Contreras Order Number: [id number] Ezekiel MD: Manuel Berger M.D. Measurements Intervals [place] Rate: 56 P: 45 GA: 252 QRS: 69 QRSD: 78 T: 87 QT: 452 QTc: 437 Interpretive Statements SINUS BRADYCARDIA WITH FIRST DEGREE AV BLOCK SEPTAL MYOCARDIAL INFARCTION , OF INDETERMINATE AGE [40+ ms Q WAVE IN V1/V2] Compared to ECG 04/20/2024 21:57:28 First degree AV block now present Sinus rhythm no longer present Myocardial infarct finding still present Electronically Signed On 04-21-2024 7:52:45 CDT by Manuel Berger M.D. [id number]
[2024-04-21 01:05] LABS: Sodium 134 mmol/L (136-145)
[2024-04-21 01:05] LABS: Troponin 5 6HR 9.48 ng/L (0-10); Troponin 5 6HR Delta 1.48 ng/L (0-12)
[2024-04-21 05:52] LABS: Basophils # 0.1 10^3/uL (0.0-0.1); Eosinophils # 0.1 10^3/uL (0.0-0.8); Eosinophils % 1.8 %; Hematocrit 36.8 % (36-47); Lymphocytes # 2.1 10^3/uL (0.8-4.8); Lymphocytes % 41.4 %; Mean Corpuscular Hemoglobin 31.8 pg (27-33); Mean Corpuscular Volume 93.6 fl (85-98); Mean Platelet Volume 8.9 fL (7.4-10.4); Monocytes # 0.4 10^3/uL (0.2-0.9); Neutrophils # 2.41 10^3/uL (1.8-7.7); Neutrophils % 48.6 %; Nucleated Red Blood Cells % 0 %; Platelet Count 260 10^3/cmm (157-399); Red Blood Count 3.93 10^6/uL (3.85-5.65); Red Cell Distribution Width 13.2 % (12.1-15.1); White Blood Count 4.97 10^3/uL (3.29-11.43)
[2024-04-21 06:30] LABS: Anion Gap 16.3 (5-19); Blood Urea Nitrogen 12 mg/dL (8-23); Calcium 8.7 mg/dL (8.5-10.5); Carbon Dioxide 23 mmol/L (22-29); Chloride 104 mmol/L (98-107); Creatinine Clr Calc Pharmacy 56.4866; Glomerular Filtration Rate 63.9 mL/min (90-130); Glucose 82 mg/dL (65-115); Osmolality Calculated 287 mOsm/kg (285-295); Potassium 4.3 mmol/L (3.5-5.1); Sodium 139 mmol/L (136-145)
[2024-04-21] MEDS: nicotine 21 mg Patch 1 PATCH TRANSDERMA (09:32)
[2024-04-21] MEDS: diazePAM 5 mg Tablet PO (09:41)
--- NOTE | 2024-04-21 09:57 | P.CONIM_ITS ---
Providers/Reason For Consult 2 Consulting Physician/Specialty*: General surgery Reason for Consult*: Dysphagia Attending Physician: Sebastien Contreras MD Primary Care Provider: John Barroso MD History of Present Illness History of Present Illness Angelita Villarreal is a 58 year old female who was admitted with hyponatremia, according to the patient she has been experiencing progressive dysphagia, she needs to drink about 1 L of water to swallow each pill which likely caused her hyponatremia. I was consulted for evaluation for possible EGD with balloon dilation as needed. Per patient reports she has difficulty swallowing and upper abdominal pain. She has seen my colleague Dr. Anderson in the clinic she will was scheduled for screening colonoscopy and a diagnostic upper endoscopy. Review of Systems 2 General: Reports: 10 or more systems reviewed and unremarkable except in HPI and below Medications/Allergies Home Medications Medication Instructions Recorded Confirmed Last Taken Type prednisone 5 mg tablet 5 mg PO DAILY #90 tabs 01/08/24 04/21/24 04/20/24 Rx ondansetron 8 mg disintegrating 8 mg PO Q8H PRN nausea and 03/26/24 04/21/24 Unknown Rx tablet vomiting #20 tabs pantoprazole 40 mg tablet,delayed 40 mg PO BID 12 weeks #168 tabs 03/26/24 04/21/24 04/20/24 Rx release diazepam 5 mg tablet 5 mg PO BID PRN anxiety #60 tabs 04/09/24 04/21/24 04/20/24 Rx latanoprost 0.005 % eye drops, 1 drp ophthalmic (eye) DAILY 04/09/24 04/21/24 04/20/24 History emulsion menthol 1 % topical powder (Gold 1 applic topical DAILY 04/09/24 04/21/24 Unknown History [facility] Medicated Foot) sertraline 100 mg tablet (Zoloft) 100 mg PO DAILY #30 tabs 04/09/24 04/21/24 04/20/24 Rx trazodone 100 mg tablet 100 mg PO .qhs #30 tabs 04/09/24 04/21/24 04/19/24 Rx levothyroxine 75 mcg tablet 75 mcg PO DAILY 04/21/24 04/21/24 04/20/24 History losartan 100 mg tablet 50 mg PO BID 04/21/24 04/21/24 04/20/24 History Allergies Allergy/AdvReac Type Severity Reaction Status Date / Time aspirin Allergy Feels Like Verified 04/20/24 14:52 Brain Bleeds Methylcodone AdvReac Intermediate Head hurts Uncoded 04/20/24 14:52 inhalers AdvReac Mild ADR-Headach Uncoded 04/20/24 14:52 e Current Medications Generic Name Dose Route Start Last Admin Trade Name Freq PRN Reason Stop Dose Admin Denture Adhesive 1 each 04/20/24 21:44 04/20/24 21:52 Efferdent Effervescent DENTAL 1 each PRN PRN Administration Dentures Diazepam 5 mg 04/20/24 18:04 04/21/24 09:41 Diazepam 5 Mg Tablet PO 5 mg BID PRN Administration anxiety Enoxaparin Sodium 40 mg 04/20/24 18:04 04/20/24 18:34 Enoxaparin 40 Mg/0.4 Ml Syringe SUBCUT 40 mg Q24H TARA Administration Sodium Chloride 1,000 mls @ 30 mls/hr 04/20/24 20:20 04/20/24 21:06 Sodium Chloride 0.9% IV 04/21/24 20:19 30 mls/hr .Q24H ONE Infusion Nicotine 1 patch 04/20/24 18:40 04/21/24 09:32 Nicotine 21 Mg Patch TRANSDERMA 1 patch DAILY TARA Administration Pantoprazole Sodium 40 mg 04/20/24 18:04 04/20/24 18:35 Pantoprazole 40 Mg Sdv IVP 40 mg Q24H TARA Administration Trazodone HCl 100 mg 04/20/24 21:00 04/20/24 20:37 Trazodone 100 Mg Tablet PO 100 mg BEDTIME TARA Administration PFSH Acute 2 PFSH: Medical History Hypokalemia Seronegative rheumatoid arthritis of both hands Immunization counseling High risk medication use Inflammatory arthritis Positive ANTHONY (antinuclear antibody) Psychiatric care Attention-deficit hyperactivity disorder, predominantly inattentive type Nicotine dependence, cigarettes, uncomplicated Panic disorder [episodic paroxysmal anxiety] Generalized anxiety disorder Post-traumatic stress disorder, chronic Social History Smoking and tobacco/nicotine status: current every day tobacco/nicotine user cigarettes Packs smoked per day: 2 Years cigarettes smoked: 44 Quit status (tobacco/nicotine): has tried quititng Number of times tried to quit tobacco: 1 Second hand smoke exposure: Yes Alcohol intake: former Substance/Drug Use: never Lives independently: Yes Household members: spouse Housing: House Marital status: service: No Current occupational status: unemployed Pets and animals: Yes Do you think of yourself as: Straight/Heterosexual Current gender identity: Female Vitals/I&O/Wt Last Vital Signs Temp 97.6 F 04/21/24 00:00 Pulse 61 04/21/24 08:56 Resp 16 04/21/24 08:56 BP 152/80 04/21/24 07:30 Pulse Ox 94 04/21/24 08:56 O2 Del Method Room Air 04/21/24 08:56 04/20/24 04/21/24 04/21/24 22:59 06:59 14:59 Intake Total 1373.5 / 1373.5 0 / 0 Output Total 500 / 500 1500 / 2000 Balance 873.5 / 873.5 -1500 / -626.5 0 / 0 Weight last 48 hrs Weight 131 lb Weight 131 lb 3.2 oz Weight 131 lb 3.2 oz Weight 127 lb Weight 127 lb Physical Exam 2 Narrative: General : Patient is well developed , no acute distress, oriented x3 Head : Normal cephalic, a-traumatic. Nose : Mucous membranes are without erythema. Lungs : Equal chest rise bilaterally, no use of accessory muscles, trachea is midline. CV : Rate and rhythm are normal. Abdomen : Soft, ND, NT, no g/r/m Extremities : No edema. Upper extremities are normal bilaterally. Back : non-tender to palpation, no CVA tenderness. Data 04/21/24 05:00 04/21/24 05:00 Micro: Microbiology 04/20/24 18:58 Blood Culture - Preliminary Blood SPECIMEN COLLECTED 04/20/24 18:44 Blood Culture - Preliminary Blood SPECIMEN COLLECTED A&P Assessment and plan (1) GI bleed: (2) GERD (gastroesophageal reflux disease): (3) Abdominal pain: Plan Is a 58-year-old female with history of dysphagia who was admitted with hyponatremia after swallowing more than 1 L water with the spiel that she drinks. I was consulted for possible EGD with dilation and biopsy. I discussed the recent benefits of the procedure with the patient including the risks of bleeding, perforation, need for additional procedures, injury to surrounding structures, need for surgical intervention regarding transfer to higher level of care. Patient shows understanding and agrees to proceed. In addition patient has been inquiring regarding the possibility of doing a colonoscopy, I informed the patient that at this point there is no acute indication for a diagnostic colonoscopy and she should have a screening colonoscopy as outpatient. She insists that she is difficult for her to take the bowel prep as outpatient and she would like to do the right now. I Explained the main reasons not to do the colonoscopy are requiring admission due to hyponatremia which likely will worsen with bowel prep, no actual acute indication for colonoscopy and finally there is a CT scan done when patient was admitted that show evidence of diverticulitis and diverticulosis of the colon, I Informed the patient that in the case of active diverticulitis no colonoscopy should be attempted 6 weeks after the index episode as there is a perforation David increases. She shows understanding but is disappointed that we cannot provide a colonoscopy at this time. Plan is for EGD today. Coding Level of Care Code Acute Code for Chg Fwd Diagnoses GI bleed K92.2 GERD (gastroesophageal reflux disease) K21.9 Abdominal pain R10.9
--- NOTE | 2024-04-21 10:16 | PC.NURSE ---
0915 Patient ready to take po am meds but saying it takes like 30 drinks to get pills to go down well, so holding am meds until after her UGI test at 1430. 0940 Then patient will to take Valium at her request, crushed up in small amount of water, to help her relax. Given with 5-7ml water then one sip of water to wash down, magnolia well.
--- NOTE | 2024-04-21 13:30 | PC.NURSE ---
1320 GI lab personell here to get patient for upper GI. Patient up to sink to rinse mouth out. Into wheelchair to go to GI lab. No c/o's.
--- NOTE | 2024-04-21 13:32 | ANES.PREANE2 ---
Pre-Anesthetic Assessment Height/Weight: Height 1.57 m Weight 59.421 kg Temp Pulse Resp BP Pulse Ox O2 Del Method 97 F L 62 18 152/87 98 Room Air 04/21/24 13:27 04/21/24 13:27 04/21/24 13:27 04/21/24 13:27 04/21/24 13:27 04/21/24 13:27 Preop Diagnosis: GERD Operation Date: 04/21/24 14:35 Proposed Procedures p EGD with possible biopsy and balloon dilation(Not Applicable) - Red Tomlinson MD Was Beta Derrick taken within 24 hours: N/A Was Clonidine taken within 24 hours: N/A Social Tobacco 1.5-2 pack(s) per day 20+ pack years Exam alert and oriented x 3 Airway Submandibular: within normal limits Cervical ROM: within normal limits Mallampati: Class II Dentition: other (missing, poor condition, unknown of loose teeth from patient) History/ROS No significant history except as noted Pulmonary Chronic Obstructive Pulmonary Disease CV/HEM Myocardial Infarction Chronic Renal Insufficiency Hepatic None reported GI Gastroesophageal Reflux Disease Metabolic Thyroid Disease [facility] [place] Rheumatoid Arthritis Neuropsych Anxiety (PTSD), Cerebrovascular Accident (Heat exhaustion possibly) and Depression Anesthetic Plan ASA status: 3 Anesthesia: MAC Risk of > 500 ml blood loss (7ml/kg in children): No Medications/Allergies Home Medications Medication Instructions Recorded Confirmed Last Taken Type prednisone 5 mg tablet 5 mg PO DAILY #90 tabs 01/08/24 04/21/24 04/20/24 Rx ondansetron 8 mg disintegrating 8 mg PO Q8H PRN nausea and 03/26/24 04/21/24 Unknown Rx tablet vomiting #20 tabs pantoprazole 40 mg tablet,delayed 40 mg PO BID 12 weeks #168 tabs 03/26/24 04/21/24 04/20/24 Rx release diazepam 5 mg tablet 5 mg PO BID PRN anxiety #60 tabs 04/09/24 04/21/24 04/20/24 Rx latanoprost 0.005 % eye drops, 1 drp ophthalmic (eye) DAILY 04/09/24 04/21/24 04/20/24 History emulsion menthol 1 % topical powder (Gold 1 applic topical DAILY 04/09/24 04/21/24 Unknown History [facility] Medicated Foot) sertraline 100 mg tablet (Zoloft) 100 mg PO DAILY #30 tabs 04/09/24 04/21/24 04/20/24 Rx trazodone 100 mg tablet 100 mg PO .qhs #30 tabs 04/09/24 04/21/24 04/19/24 Rx levothyroxine 75 mcg tablet 75 mcg PO DAILY 04/21/24 04/21/24 04/20/24 History losartan 100 mg tablet 50 mg PO BID 04/21/24 04/21/24 04/20/24 History Allergies Allergy/AdvReac Type Severity Reaction Status Date / Time aspirin Allergy Feels Like Verified 04/20/24 14:52 Brain Bleeds Methylcodone AdvReac Intermediate Head hurts Uncoded 04/20/24 14:52 inhalers AdvReac Mild ADR-Headach Uncoded 04/20/24 14:52 e Current Medications Generic Name Dose Route Start Last Admin Trade Name Freq PRN Reason Stop Dose Admin Denture Adhesive 1 each 04/20/24 21:44 04/20/24 21:52 Efferdent Effervescent DENTAL 1 each PRN PRN Administration Dentures Diazepam 5 mg 04/20/24 18:04 04/21/24 09:41 Diazepam 5 Mg Tablet PO 5 mg BID PRN Administration anxiety Enoxaparin Sodium 40 mg 04/20/24 18:04 04/20/24 18:34 Enoxaparin 40 Mg/0.4 Ml Syringe SUBCUT 40 mg Q24H TARA Administration Sodium Chloride 1,000 mls @ 30 mls/hr 04/20/24 20:20 04/20/24 21:06 Sodium Chloride 0.9% IV 04/21/24 20:19 30 mls/hr .Q24H ONE Infusion Nicotine 1 patch 04/20/24 18:40 04/21/24 09:32 Nicotine 21 Mg Patch TRANSDERMA 1 patch DAILY TARA Administration Pantoprazole Sodium 40 mg 04/20/24 18:04 04/20/24 18:35 Pantoprazole 40 Mg Sdv IVP 40 mg Q24H TARA Administration Trazodone HCl 100 mg 04/20/24 21:00 04/20/24 20:37 Trazodone 100 Mg Tablet PO 100 mg BEDTIME TARA Administration PFSH Anesthesia Medical History Hypokalemia Seronegative rheumatoid arthritis of both hands Immunization counseling High risk medication use Inflammatory arthritis Positive ANTHONY (antinuclear antibody) Psychiatric care Attention-deficit hyperactivity disorder, predominantly inattentive type Nicotine dependence, cigarettes, uncomplicated Panic disorder [episodic paroxysmal anxiety] Generalized anxiety disorder Post-traumatic stress disorder, chronic Social History Smoking and tobacco/nicotine status: current every day tobacco/nicotine user cigarettes Packs smoked per day: 2 Years cigarettes smoked: 44 Quit status (tobacco/nicotine): has tried quititng Number of times tried to quit tobacco: 1 Second hand smoke exposure: Yes Alcohol intake: former Substance/Drug Use: never Lives independently: Yes Household members: spouse Housing: House Marital status: service: No Current occupational status: unemployed Pets and animals: Yes Do you think of yourself as: Straight/Heterosexual Current gender identity: Female Data Anesthesia 04/21/24 05:00 04/21/24 05:00 Short CBC 04/20/24 04/21/24 Range/Units 14:47 05:00 WBC 8.58 4.97 (3.29-11.43) 10^3/uL Hgb 11.80 12.50 (11.27-16.99) g/dL Hct 34.1 L 36.8 (36-47) % MCV 91.9 93.6 (85-98) fl Plt Count 236 260 (157-399) 10^3/cmm Neut % (Auto) 84.9 48.6 % Neut # (Auto) 7.28 2.41 (1.8-7.7) 10^3/uL BMP 04/20/24 04/20/24 04/20/24 14:47 18:07 18:44 Sodium 120 L 131 L Cancelled Potassium 4.2 Chloride 86 L Carbon Dioxide 22 BUN 14 Creatinine 0.9 Glucose 98 Calcium 8.7 04/20/24 04/20/24 04/21/24 19:56 20:50 00:30 Sodium 131 L 131 L 134 L Potassium Chloride Carbon Dioxide BUN Creatinine Glucose Calcium 04/21/24 04/21/24 05:00 05:00 Sodium 139 Cancelled Potassium 4.3 Chloride 104 Carbon Dioxide 23 BUN 12 Creatinine 0.9 Glucose 82 Calcium 8.7 Cardiac Enzymes 04/20/24 04/20/24 04/20/24 Range/Units 18:02 18:07 19:56 Troponin T Baseline 8 (0-10) ng/L Troponin T 120 Minute Cancelled Delta Troponin T Cancelled Troponin T Hi Sens 6Hr (0-10) ng/L Troponin T Hi Sens 6Hr Delta (0-12) ng/L NT-Pro-B Natriuret Pep 168 H (0-125) pg/mL 04/20/24 04/21/24 Range/Units 20:50 00:31 Troponin T Baseline (0-10) ng/L Troponin T 120 Minute 7.42 Delta Troponin T -0.58 L Troponin T Hi Sens 6Hr 9.48 (0-10) ng/L Troponin T Hi Sens 6Hr Delta 1.48 (0-12) ng/L NT-Pro-B Natriuret Pep (0-125) pg/mL Liver Function 04/20/24 Range/Units 14:47 Total Bilirubin 0.4 (0.15-1.2) mg/dL AST 11 (0-32) U/L ALT 12 (0-33) U/L Alkaline Phosphatase 61 (35-105) U/L Albumin 4.4 (3.5-5.2) g/dL Urine 04/20/24 Range/Units 19:06 Urine Color Yellow (Yellow) Urine Appearance Clear (CLEAR) Urine pH 6.5 (5-7) Ur Specific Oriental 1.003 L (1.005-1.030) Urine Protein Negative (Negative) Urine Glucose (UA) Negative (Normal) Urine Ketones Negative (Negative) Urine Nitrate Negative (Negative) Urine Bilirubin Negative (Negative) Ur Leukocyte Esterase Negative (Negative) Urine RBC 0-2 (0-2) /hpf Urine WBC 0-5 (0-5) /hpf Microbiology 04/20/24 18:58 Blood Culture - Preliminary Blood SPECIMEN COLLECTED 04/20/24 18:44 Blood Culture - Preliminary Blood SPECIMEN COLLECTED Cardiac Studies: No Data to Display
[2024-04-21] MEDS: sodium chloride 0.9% 1,000 ML 30 ML IV (14:00)
--- NOTE | 2024-04-21 14:47 | PC.NURSE ---
1435 Back from GI lab via stretcher, awake but sleepy. No c/o's.
[2024-04-21] MEDS: levothyroxine 75 mcg Tablet PO (14:56)
[2024-04-21] MEDS: predniSONE 5 mg Tablet PO (14:56)
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
--- NOTE | 2024-04-21 15:10 | ANE.PACU2 ---
Inpatient post-anesthesia follow up: Airway intact: Yes Vital signs: Temperature 98.0 F Pulse Rate 60 Respiratory Rate 14 Blood Pressure 143/79 Pulse Oximetry 98 Oxygen Delivery Me thod Nasal Cannula Oxygen Flow Rate 2 Fraction of Inspir ed Oxygen Hydration adequate: Yes Nausea and vomiting: No Pain level: 2 Mental status: Baseline
--- NOTE | 2024-04-21 15:10 | PC.NURSE ---
1500 Gave am meds, crushed in applesauce, magnolia well. Taking clear liquids well. No c/o's, daughter at bedside.
== END 2024-04-21 16:40 | disposition home or self-care (01) | DRG 641 ==
LOC: ER 17:39 → ER IP 18:47 → ICU 19:32
PROVIDERS: Surgery; Admitting Provider Family Medicine; Emergency Provider Emergency Medicine; PCP Family Medicine; Visit Provider Family Medicine
PROC: 0DJ08ZZ Inspection of Upper Intestinal Tract, Via Natural or Artificial Opening Endoscopic (ICD-10-PCS; CPT 43235; principal; 2024-04-21 14:35)
DX: E87.1 Hypo-osmolality and hyponatremia (principal); G93.40 Encephalopathy, unspecified; K29.70 Gastritis, unspecified, without bleeding; J43.9 Emphysema, unspecified; F17.210 Nicotine dependence, cigarettes, uncomplicated; F41.9 Anxiety disorder, unspecified; E03.9 Hypothyroidism, unspecified; M06.00 Rheumatoid arthritis without rheumatoid factor, unspecified site; F90.0 Attention-deficit hyperactivity disorder, predominantly inattentive type; F41.1 Generalized anxiety disorder; F41.0 Panic disorder [episodic paroxysmal anxiety]; F43.12 Post-traumatic stress disorder, chronic; R63.1 Polydipsia; R13.10 Dysphagia, unspecified; K29.80 Duodenitis without bleeding; K57.90 Diverticulosis of intestine, part unspecified, without perforation or abscess without bleeding
CPT/HCPCS: 36415; 43239; 70450; 71045; 74176; 80048; 80053; 80061; 80306; 80307; 81003; 81015; 82140; 82533; 83036; 83605; 83735; 83880; 84295; 84443; 84484; 85025; 87040; 88305; 88342; 93005; 94664; 96372; 99285; J1650; J2470; J2704; J7030; J7512

== ENCOUNTER 2024-09-03 05:42 | Day surgery (SDC) | payer OTHER, SELFPAY ==
--- NOTE | 2024-09-03 05:27 | W.PM.OPSFHP ---
Same Day Surgery H&P Indication for Procedure/HPI DATE OF PROCEDURE: September 03, 2024 CHIEF COMPLAINT/INDICATIONFOR SURGICAL PROCEDURE: need for screening colonoscopy PREOP DIAGNOSIS: need for screening colonoscopy PLANNED PROCEDURE: Operation Date: 09/03/24 07:00 Proposed Procedures p Colonoscopy 33435, G0105, Z12.11(Not Applicable) - Red Tomlinson MD Medications/Allergies* Home Medications Medication Instructions Recorded Confirmed Type latanoprost 0.005 % eye drops, 1 drp ophthalmic (eye) DAILY 04/09/24 09/01/24 History emulsion levothyroxine 75 mcg tablet 75 mcg PO DAILY 04/21/24 09/01/24 History losartan 100 mg tablet 50 mg PO BID 04/21/24 09/01/24 History ketoconazole 2 % topical cream 1 applic topical DAILY PRN Rash 05/11/24 09/01/24 History pantoprazole 40 mg tablet,delayed 40 mg PO DAILY 09/01/24 09/01/24 History release Allergies/Adverse Reactions Allergy/AdvReac Type Severity Reaction Status Date / Time aspirin Allergy Feels Like Verified 09/01/24 09:05 Brain Bleeds Methylcodone AdvReac Intermediate Head hurts Uncoded 08/17/24 13:31 inhalers AdvReac Mild ADR-Headach Uncoded 08/17/24 13:31 e Pertinent History/Comorbid Conditions* Medical History (Updated 07/16/24 @ 07:13 by Bereket Sanchez DPM) Hypokalemia Seronegative rheumatoid arthritis of both hands Immunization counseling High risk medication use Inflammatory arthritis Positive ANTHONY (antinuclear antibody) Psychiatric care Attention-deficit hyperactivity disorder, predominantly inattentive type Nicotine dependence, cigarettes, uncomplicated Panic disorder [episodic paroxysmal anxiety] Generalized anxiety disorder Post-traumatic stress disorder, chronic Social History Smoking and tobacco/nicotine status: current every day tobacco/nicotine user cigarettes Packs smoked per day: 1 Years cigarettes smoked: 44 Quit status (tobacco/nicotine): has tried quititng Number of times tried to quit tobacco: 1 Second hand smoke exposure: Yes Alcohol intake: former Substance/Drug Use: never Lives independently: Yes Household members: spouse Housing: House Marital status: service: No Current occupational status: unemployed Pets and animals: Yes Do you think of yourself as: Straight/Heterosexual Current gender identity: Female Pertinent Exam Findings alert, oriented x 3, clear to auscultation bilaterally and regular rate & rhythm Recommendations Surgery/Procedure today Coding Level of Care Code Acute Code for Chg Fwd
[2024-09-03 06:03] VITALS: BP 148/96; PULSE 74; RESP 18; TEMP 36.1; O2SAT 98; BMI 21.7
[2024-09-03] MEDS: sodium chloride 0.9% 500 ML 15 ML IV (06:14)
--- NOTE | 2024-09-03 06:59 | ANES.PREANE2 ---
Pre-Anesthetic Assessment Height/Weight: Height 1.57 m Weight 53.977 kg Temp Pulse Resp BP Pulse Ox O2 Del Method 97 F L 74 18 148/96 98 Room Air 09/03/24 06:03 09/03/24 06:03 09/03/24 06:03 09/03/24 06:03 09/03/24 06:03 09/03/24 06:03 Preop Diagnosis: need for screening colonoscopy Operation Date: 09/03/24 07:00 Proposed Procedures p Colonoscopy 75063, G0105, Z12.11(Not Applicable) - Red Tomlinson MD Familial anesthetic complications: none Was Beta Derrick taken within 24 hours: N/A Was Clonidine taken within 24 hours: N/A Last intake: Intake Last Liquid Date 09/03/24 Last Liquid Time 01:52 Last Solid Date 09/01/24 Last Solid Time 22:00 Social Tobacco (2 ppd. smoked this AM) and No alcohol Exam alert and oriented x 3 Airway Submandibular: within normal limits Cervical ROM: within normal limits Mallampati: Class II Dentition: full Pulmonary Chronic Obstructive Pulmonary Disease and Exertional Dyspnea CV/HEM Hypertension pt reports no chest pain. None reported Hepatic None reported GI Gastroesophageal Reflux Disease Metabolic Hyperlipidemia and Thyroid Disease Musc/skel Lower Back Pain, Osteoarthritis/DJD and Rheumatoid Arthritis Neuropsych Anxiety and Depression PTSD Anesthetic Plan ASA status: 3 Anesthesia: Anesthesia Evaluation and MAC Medications/Allergies Home Medications Medication Instructions Recorded Confirmed Last Taken Type latanoprost 0.005 % eye drops, 1 drp ophthalmic (eye) DAILY 04/09/24 09/01/24 09/03/24 History emulsion levothyroxine 75 mcg tablet 75 mcg PO DAILY 04/21/24 09/01/24 09/02/24 History losartan 100 mg tablet 50 mg PO BID 04/21/24 09/01/24 09/02/24 History ketoconazole 2 % topical cream 1 applic topical DAILY PRN Rash 05/11/24 09/01/24 09/02/24 History prednisone 5 mg tablet 5 mg PO DAILY #90 tabs 07/15/24 09/01/24 09/02/24 Rx diazepam 5 mg tablet 5 mg PO BID PRN anxiety #60 tabs 07/21/24 09/01/24 09/02/24 Rx trazodone 100 mg tablet 100 mg PO .qhs #30 tabs 08/17/24 09/01/24 09/02/24 Rx ondansetron 8 mg disintegrating 8 mg PO Q8H PRN nausea and 08/26/24 09/01/24 09/02/24 Rx tablet vomiting #3 tabs pantoprazole 40 mg tablet,delayed 40 mg PO DAILY 09/01/24 09/01/24 09/02/24 History release Allergies Allergy/AdvReac Type Severity Reaction Status Date / Time aspirin Allergy Feels Like Verified 09/01/24 09:05 Brain Bleeds Methylcodone AdvReac Intermediate Head hurts Uncoded 08/17/24 13:31 inhalers AdvReac Mild ADR-Headach Uncoded 08/17/24 13:31 e Current Medications Generic Name Dose Route Start Last Admin Trade Name Freq PRN Reason Stop Dose Admin Sodium Chloride 500 mls @ 15 mls/hr 09/03/24 05:56 09/03/24 06:14 Sodium Chloride 0.9% IV 09/04/24 05:55 15 mls/hr .Q24H PRN Administration COLONOSCOPY FLUIDS PFSH Anesthesia Medical History Hypokalemia Seronegative rheumatoid arthritis of both hands Immunization counseling High risk medication use Inflammatory arthritis Positive ANTHONY (antinuclear antibody) Psychiatric care Attention-deficit hyperactivity disorder, predominantly inattentive type Nicotine dependence, cigarettes, uncomplicated Panic disorder [episodic paroxysmal anxiety] Generalized anxiety disorder Post-traumatic stress disorder, chronic Social History Smoking and tobacco/nicotine status: current every day tobacco/nicotine user cigarettes Packs smoked per day: 1 Years cigarettes smoked: 44 Quit status (tobacco/nicotine): has tried quititng Number of times tried to quit tobacco: 1 Second hand smoke exposure: Yes Alcohol intake: former Substance/Drug Use: never Lives independently: Yes Household members: spouse Housing: House Marital status: service: No Current occupational status: unemployed Pets and animals: Yes Do you think of yourself as: Straight/Heterosexual Current gender identity: Female Data Anesthesia Cardiac Studies: No Data to Display
[2024-09-03 07:28] VITALS: BP 116/66; PULSE 73; RESP 20; TEMP 36.1; O2SAT 98
--- NOTE | 2024-09-03 07:40 | ANE.PACU2 ---
Inpatient post-anesthesia follow up: Airway intact: Yes Vital signs: Temperature 97.0 F Pulse Rate 73 Respiratory Rate 20 Blood Pressure 116/66 Pulse Oximetry 98 Oxygen Delivery Me thod Room Air Oxygen Flow Rate Fraction of Inspir ed Oxygen Hydration adequate: Yes Nausea and vomiting: No Pain level: 1 Mental status: Baseline
[2024-09-03 07:50] VITALS: BP 121/74; PULSE 69; RESP 18; O2SAT 99
== END 2024-09-03 08:09 | disposition home or self-care (01) ==
PROVIDERS: PCP Family Medicine; Visit Provider Surgery
PROC: 0DJD8ZZ Inspection of Lower Intestinal Tract, Via Natural or Artificial Opening Endoscopic (ICD-10-PCS; CPT 45378; principal; 2024-09-03 07:00)
DX: Z12.11 Encounter for screening for malignant neoplasm of colon (principal); K57.30 Diverticulosis of large intestine without perforation or abscess without bleeding; F17.210 Nicotine dependence, cigarettes, uncomplicated; J44.9 Chronic obstructive pulmonary disease, unspecified; I10 Essential (primary) hypertension; K21.9 Gastro-esophageal reflux disease without esophagitis; E78.5 Hyperlipidemia, unspecified
CPT/HCPCS: 45380; 88305; J2704; J7040

== ENCOUNTER 2024-12-04 13:42 | Outpatient (CLI) | payer OTHER, SELFPAY ==
--- NOTE | 2024-12-04 13:47 | USR_ITS ---
PROCEDURE INFORMATION: Exam: US Retroperitoneal, Complete, Kidneys and Bladder Exam date and time: 12/04/2024 2:13 PM Age: 59 years old Clinical indication: Condition or disease; Kidney or ureter condition; Other: Chronic kidney disease TECHNIQUE: Imaging protocol: Real-time ultrasound of the retroperitoneum with image documentation. Complete exam focused on the bilateral kidneys and urinary bladder. COMPARISON: CT abdomen pelvis con [id number] 04/20/2024 6:49 PM FINDINGS: Right kidney: The right kidney is 8.7 x 4.2 x 4.2 cm in size. No stones. No hydronephrosis. Left kidney: The left kidney is 8.5 x 4.1 x 4.2 cm in size.. No stones. No hydronephrosis. Urinary bladder: Unremarkable. US/US renal BI* [id number] IMPRESSION: Small kidneys. Otherwise normal.
== END 2024-12-04 13:43 | disposition home or self-care (01) ==
PROVIDERS: PCP Family Medicine; Visit Provider Family Medicine
DX: N18.32 Chronic kidney disease, stage 3b (principal); R31.9 Hematuria, unspecified; R93.421 Abnormal radiologic findings on diagnostic imaging of right kidney; R93.422 Abnormal radiologic findings on diagnostic imaging of left kidney
CPT/HCPCS: 76770

== ENCOUNTER 2025-08-19 11:09 | Emergency (ER) | payer OTHER, SELFPAY ==
--- NOTE | 2025-08-19 11:13 | ECG_ITS ---
[facility] Pat Name: Angelita Villarreal Department: Room: Gender: Female Husbandry Person: : 1965 Requested By: Josh Bergman Order Number: [id number] Ezekiel MD: Milena Rivas M.D. Measurements Intervals [place] Rate: 70 P: 48 TX: 120 QRS: 86 QRSD: 78 T: 80 QT: 388 QTc: 419 Interpretive Statements SINUS RHYTHM ANTERIOR MYOCARDIAL INFARCTION , OF INDETERMINATE AGE [40+ ms Q WAVE AND/OR ST/T ABNORMALITY IN V3/V4] Compared to ECG 04/21/2024 00:30:29 Sinus bradycardia no longer present First degree AV block no longer present Myocardial infarct finding still present Electronically Signed On 08-20-2025 18:47:55 SPOT MAN by Milena Rivas M.D. [email or web address]
[2025-08-19 11:15] VITALS: BP 153/83; PULSE 99; RESP 18; TEMP 36.7; O2SAT 99; BMI 15.7
--- NOTE | 2025-08-19 11:41 | CT_ITS ---
WS: [id number] CT ABDOMEN PELVIS TECHNIQUE: Contrast-enhanced CT of the abdomen and pelvis with coronal and sagittal reformatted images. CLINICAL INFORMATION: abd pain COMPARISON: 04/20/2024 DLP: 274.[address] scans at [facility] use at least one of these dose optimization techniques: automated exposure control; mA and/or kV adjustment per patient size (includes targeted exams where dose is matched to clinical indication); or iterative reconstruction. FINDINGS: Mild hepatomegaly. Lung bases are well aerated. Heterogeneous hepatic parenchymal enhancement. Recommend correlation with liver function tests. Normal gallbladder. Normal GE junction. Normal spleen. Normal pancreatic parenchymal enhancement. Adrenal glands are normal. Normal renal parenchymal enhancement. Tiny bilateral renal cysts. No hydronephrosis. Normal caliber abdominal aorta. Aortic calcification. Celiac and SMA are patent. Portal vein and splenic vein are patent. Diffuse pancolonic fecal retention in the transverse colon with a few air-fluid levels. No evidence of high-grade obstruction. Mild disc bulging L3-L5. Urinary distention of the bladder. CT/CT abdomen pelvis w con* [id number] IMPRESSION: 1. Fecal retention with a few air-fluid levels worse in the transverse colon b ut no evidence of high-grade obstruction or significant bowel wall thickening. 2. Small bowel is normal in appearance. 3. Urine distended bladder. 4. Hepatomegaly with coarse hepatic parenchymal enhancement. Recommend correla tion with liver function tests. Gallbladder appears normal. 5. No other acute findings.
[2025-08-19 11:58] LABS: Hematocrit 40.5 % (36-47); Hemoglobin 13.70 g/dL (11.27-16.99); Mean Corpuscular HGB Conc 33.8 g/dL (30-55); Mean Corpuscular Hemoglobin 31.1 pg (27-33); Mean Corpuscular Volume 92.0 fl (85-98); Nucleated Red Blood Cells % 0 %; Platelet Count 247 10^3/cmm (157-399); Red Blood Count 4.40 10^6/uL (3.85-5.65); White Blood Count 7.93 10^3/uL (3.29-11.43)
[2025-08-19 12:20] LABS: Alanine Aminotransferase 14 U/L (0-33); Albumin Level 4.6 g/dL (3.5-5.2); Alkaline Phosphatase 58 U/L (35-105); Anion Gap 16.0 (5-19); Aspartate Amino Transferase 18 U/L (0-32); Blood Urea Nitrogen 19 mg/dL (8-23); Calcium 9.0 mg/dL (8.5-10.5); Carbon Dioxide 24 mmol/L (22-29); Chloride 99 mmol/L (98-107); Globulin 2.1 g/dL (1.3-4.6); Glucose 102 mg/dL (65-115); Lipase 45 U/L (13-60); Osmolality Calculated 282 mOsm/kg (285-295); Potassium 4.0 mmol/L (3.5-5.1); Sodium 135 mmol/L (136-145); Total Protein 6.7 g/dL (6.6-8.7)
[2025-08-19 12:23] LABS: Lactic Sepsis W/Reflex 1.8 mmol/L (0.5-2.2)
[2025-08-19 12:43] VITALS: PULSE 75; RESP 16; O2SAT 97
--- OUTSIDE RECORDS SUMMARY | 2025-08-19 12:45 | XMS_ITS | Encounter Summary ---
Author Organization [facility] Address [address] [place] [address] Care Team Providers Care Java Jsf Developer Name Role Phone Unavailable Primary Care Provider Unavailabl e Encounter Details Date Type Department Care Team (Late st Contact Info) Description 08/25/2018 Lab Requisition [facility] Services [place] [address] [place] [phone] Itz Marquez, DO NO ADDRESS ON FILE Social History Tobacco Use Types Packs/Day Years Used Date Smoking Tobacco: Every Day Cigarettes 2 35 Alcohol Use Standard Drinks/Week Comments No 0 (1 standard drink = 0.6 oz pur e alcohol) Comments Unknown Sex and Gender Information Value Date Recorded Sex Assigned at Not on file Legal Sex Female 5:30 AM VP BIOLOGY Gender Identity Not on file Sexual Orientation Not on file documented as of this encounter Plan of Treatment Not on file documented as of this encounter Procedures Procedure Name Priority Date/Time Associated Diagnosis Comments TSH Routine 08/25/2018 10:30 PM VP BIOLOGY documented in this encounter Results * (ABNORMAL) TSH (08/25/2018 10:30 PM VP BIOLOGY) TSH 4.96(H) 0.27 - 4.20 uIU/mL 08/26/2018 4:50 AM VP BIOLOGY [facility] Blood Collection / Unknown 08/25/2018 10:30 PM VP BIOLOGY 08/26/2018 3:43 AM VP BIOLOGY us Itz Marquez DO CHEMISTRY ORDERABLES Final Resu lt [facility] # [id number] [address] [place] [address] documented in this encounter Visit Diagnoses Not on filedocumented in this encounter
--- OUTSIDE RECORDS SUMMARY | 2025-08-19 12:45 | XMS_ITS | Encounter Summary ---
Author Organization [facility] Address [address] [place] [address] Care Team Providers Care Continuity Tester Name Role Phone Unavailable Primary Care Provider Unavailabl e Encounter Details Date Type Department Care Team (Late st Contact Info) Description 07/07/2018 Lab Requisition [facility] General Laboratory Services [place] [address] [place] [address] Amador Foster, DO NO ADDRESS ON FILE Social History Tobacco Use Types Packs/Day Years Used Date Smoking Tobacco: Every Day Cigarettes 2 35 Alcohol Use Standard Drinks/Week Comments No 0 (1 standard drink = 0.6 oz pur e alcohol) Comments Unknown Sex and Gender Information Value Date Recorded Sex Assigned at Not on file 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 Gender Identity Not on file Sexual Orientation Not on file documented as of this encounter Plan of Treatment Not on file documented as of this encounter Procedures Procedure Name Priority Date/Time Associated Diagnosis Comments TSH Routine 07/07/2018 9:00 PM CDT documented in this encounter Results * (ABNORMAL) TSH (07/07/2018 9:00 PM CDT) TSH 0.20(L) 0.27 - 4.20 uIU/mL 07/07/2018 11:44 PM CDT [facility] Blood Collection / Unknown 07/07/2018 9:00 PM CDT 07/07/2018 11:10 PM CDT us Amador Foster DO CHEMISTRY ORDERABLES Final R esult [facility] # [id number] [address] [place] [address] documented in this encounter Visit Diagnoses Not on filedocumented in this encounter
--- OUTSIDE RECORDS SUMMARY | 2025-08-19 12:45 | XMS_ITS | Encounter Summary ---
Author Organization [facility] Address [address] [place] [address] Care Team Providers Care Asic Verification Engineer Name Role Phone Unavailable Primary Care Provider Unavailabl e Encounter Details Date Type Department Care Team (Latest Contact Info) Description 01/28/2004 Outpatient [facility] [address] [place] [phone] Cole Thompson MD [address] [place] [phone] CARPAL TUNNEL SYNDROME (Primary Dx) Social History Tobacco Use Types Packs/Day Years Used Date Smoking Tobacco: Never Assessed Comments Unknown Sex and Gender Information Value Date Recorded Sex Assigned at Not on file 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
--- OUTSIDE RECORDS SUMMARY | 2025-08-19 12:45 | XMS_ITS | Clinical Summary ---
Author Organization [facility] Address [address] [facility] Attn: [place] [address] Care Team Providers Care Clinical Rn Liaison Name Role Phone Unavailable Primary Care Provider Unavailabl e Allergies No known active allergies Medications furosemide (LASIX) 20 mg tablet Take 1 Tablet (20 mg) by mouth daily. 30 Tablet 6 8 Active pravastatin (PRAVACHOL) 20 mg tablet Take 1 Tablet (20 mg) by mouth late in the day. 30 Tablet 6 8 Active potassium chloride (KLOR-CON) 10 mEq Extended Release tablet Take 1 Tablet (10 mEq) by mouth daily with breakfast. 30 Tablet 6 8 Active isosorbide mononitrate (IMDUR) 30 mg Extended Release 24 hour tablet Take 0.5 Tablets (15 mg) by mouth daily table filler. 15 Tablet 2 8 Active nitroglycerin (NITROSTAT) 0.4 mg Tablet, Sublingual Place 1 Tablet (0.4 mg) under tongue every 5 minutes as needed for Chest Pain. 25 Tablet 2 8 Active aspirin (CHAPIS CHEWABLE) 81 mg Tablet, Chewable Take 81 mg by mouth daily. 8 Active Levothyroxine 25 mcg Capsule Take by mouth daily before breakfast. 8 Active calcium as carbonate (TUMS ULTRA) 1,000 mg (400 mg elemental) Tablet, Chewable Take by mouth. 8 Active acetaminophen (TYLENOL) 500 mg tablet Take 500 mg by mouth every 6 hours as needed. 8 Active ibuprofen (MOTRIN) 200 mg tablet Take 200 mg by mouth every 6 hours as needed for Pain, Mild. 8 Active cyanocobalamin (VITAMIN B-12) 1,000 mcg Tablet, Sublingual Place 2,500 mcg under tongue daily. 8 Active cholecalciferol, Vitamin D3, (VITAMIN D3) 25 mcg (1,000 unit) Capsule Take by mouth daily. 8 Active diazePAM (VALIUM) 5 mg tablet Take 5 mg by mouth 2 times daily as needed for Anxiety. 4 Active losartan (COZAAR) 100 mg tablet Take 1 Tablet by mouth daily. 4 Active pantoprazole (PROTONIX) 40 mg Tablet, Delayed Release (E.C.) Take 40 mg by mouth daily. 4 Active predniSONE (DELTASONE) 5 mg tablet Take 1 Tablet by mouth daily. 4 Active sertraline (ZOLOFT) 100 mg tablet Take 1 Tablet by mouth daily. 4 Active buspirone HCl (BUSPIRONE ORAL) Take by mouth. Active petrolat,wht/min oil/sod chl (ARTIFICIAL TEARS OINTMENT OP) by Ophthalmic route. Active Active Problems Problem Noted Date Diagnosed Date Chest pain 03/18/2018 Old CO (myocardial infarction) 03/18/2018 Benign hypertension 03/18/2018 Abnormal EKG 03/18/2018 Pain of right upper extremity 03/18/2018 Acquired hypothyroidism 03/18/2018 Smoking 03/18/2018 Dyslipidemia 03/18/2018 ASHD (arteriosclerotic heart disease) 03/18/2018 Abnormal stress test Social History Tobacco Use Types Packs/Day Years Used Date Smoking Tobacco: Every Day Cigarettes Tobacco Cessation:Ready to Q uit: Not Asked; Counseling Given: Not Answered Alcohol Use Standard Drinks/Week Comments No 0 (1 standard drink = 0.6 oz pur e alcohol) Comments Unknown Sex and Gender Information Value Date Recorded Sex Assigned at Not on file 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 Gender Identity Not on file Sexual Orientation Not on file Last Filed Vital Signs Vital Sign Reading Time Taken Comments Blood Pressure 142/79 04/03/2024 8:20 AM CDT Pulse 65 04/03/2024 8:20 AM CDT Temperature 36.5 C (97.7 F) 05/22/2018 11:35 AM CDT Respiratory Rate 20 05/22/2018 11:35 AM CDT Oxygen Saturation - - Inhaled Oxygen Concentration - - Weight 59.4 kg (131 lb) 04/03/2024 8:20 AM CDT Height 157.5 cm (5' 2 ) 04/03/2024 8:20 AM CDT Body Mass Index 23.96 04/03/2024 8:20 AM CDT Plan of Treatment Health Maintenance Due Date Last Done Comments DTAP/TDAP/TD VACCINES (1 - Tdap) 12/04/1982 HPV/Cotest (21-29) 12/04/1984 CERVICAL CANCER SCREENING 12/04/1993 HPV/Cotest (30-65) 12/04/1993 PAP SMEAR 12/04/1993 BREAST CANCER SCREENING 2003 COLORECTAL SCREENING 12/04/2008 Colorectal Cancer Screening 12/04/2008 FIT-DNA Q 3 years 12/04/2008 FIT/FOBT Q 1 year 12/04/2008 Flex Sig/CT Colonography Q 5 years 12/04/2008 RSV VACCINE (60+ or ) (1 - Risk 50-74 years 1-dose series) 12/04/2013 ZOSTER VACCINE (1 of 2) 12/04/2013 INFLUENZA VACCINE (#1) 2025 Insurance [facility]
--- OUTSIDE RECORDS SUMMARY | 2025-08-19 12:45 | XMS_ITS | Clinical Summary ---
Author Organization [facility] Address [address] [place] [address] Phone Care Team Providers Care Monotype Keyboard Operator Name Role Phone Unavailable Primary Care Provider Unavailabl e Allergies No known active allergies Medications Levothyroxine 25 mcg Capsule Take by mouth daily before breakfast. Active aspirin (CHAPIS CHEWABLE) 81 mg Tablet, Chewable Take 81 mg by mouth daily. Active Cyanocobalamin (VITAMIN B-12) 1,000 mcg Tablet, Sublingual Place 2,500 mcg under tongue daily. Active cholecalciferol, Vitamin D3, (VITAMIN D3) 1,000 unit Capsule Take by mouth daily. Active calcium as carbonate (TUMS ULTRA) 1,000 mg (400 mg elemental) Tablet, Chewable Take by mouth. Active acetaminophen (TYLENOL) 500 mg tablet Take 500 mg by mouth every 6 hours as needed. Active ibuprofen (MOTRIN) 200 mg tablet Take 200 mg by mouth every 6 hours as needed for Pain, Mild. Active pravastatin (PRAVACHOL) 20 mg tablet Take 1 Tablet (20 mg) by mouth late in the day. 30 Tablet 03/18/2018 Active furosemide (LASIX) 20 mg tablet Take 1 Tablet (20 mg) by mouth daily. 30 Tablet 03/18/2018 Active potassium chloride (KLOR-CON 10) 10 mEq Extended Release tablet Take 1 Tablet (10 mEq) by mouth daily with breakfast. 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 15 Tablet 2 05/09/2018 Active nitroglycerin (NITROSTAT) 0.4 mg Tablet, Sublingual Place 1 Tablet (0.4 mg) under tongue every 5 minutes as needed for Chest Pain. 25 Tablet 2 05/22/2018 Active Active Problems Problem Noted Date Diagnosed Date Chest pain 03/18/2018 Old HI (myocardial infarction) 03/18/2018 Abnormal EKG 03/18/2018 Benign hypertension 03/18/2018 Pain of right upper extremity 03/18/2018 Acquired hypothyroidism 03/18/2018 Smoking 03/18/2018 Dyslipidemia 03/18/2018 ASHD (arteriosclerotic heart disease) 03/18/2018 Abnormal stress test Social History Tobacco Use Types Packs/Day Years Used Date Smoking Tobacco: Every Day Cigarettes 2 35 Tobacco Cessation:Ready to Q uit: No; Counseling Given: No Alcohol Use Standard Drinks/Week Comments No 0 (1 standard drink = 0.6 oz pur e alcohol) Comments Unknown Sex and Gender Information Value Date Recorded Sex Assigned at Not on file 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 Gender Identity Not on file Sexual Orientation Not on file Last Filed Vital Signs Vital Sign Reading Time Taken Comments Blood Pressure 133/63 05/22/2018 5:15 PM CDT Pulse 50 05/22/2018 5:15 PM CDT Temperature 36.5 C (97.7 F) 05/22/2018 11:35 AM CDT Respiratory Rate 20 05/22/2018 11:35 AM CDT Oxygen Saturation 97% 05/22/2018 5:15 PM CDT Inhaled Oxygen Concentration - - Weight 59 kg (130 lb 1.1 oz) 05/22/2018 11:35 AM CDT Height 154.9 cm (5' 1 ) 05/22/2018 11:35 AM CDT Body Mass Index 24.58 05/22/2018 11:35 AM CDT Plan of Treatment Health Maintenance Due Date Last Done Comments DTAP/TDAP/TD VACCINES (1 - Tdap) 12/04/1982 HPV/Cotest (21-29) 12/04/1984 CERVICAL CANCER SCREENING 12/04/1993 HPV/Cotest (30-65) 12/04/1993 PAP SMEAR 12/04/1993 BREAST CANCER SCREENING 2003 COLORECTAL SCREENING 12/04/2008 Colorectal Cancer Screening 12/04/2008 FIT-DNA Q 3 years 12/04/2008 FIT/FOBT Q 1 year 12/04/2008 Flex Sig/CT Colonography Q 5 years 12/04/2008 ZOSTER VACCINE (1 of 2) 12/04/2013 INFLUENZA VACCINE (#1) 2025 RSV VACCINE (60+ or ) (1 - 1-dose 75+ series) 12/04/2038 Advance Directives For more information, please contact: [phone] * Full Code (Latest Code Status on File) Date Activated Date Inactivated Comments 05/22/2018 4:11 PM 05/22/2018 8:15 PM * Full Code Date Activated Date Inactivated Comments 05/22/2018 11:23 AM 05/22/2018 4:11 PM
--- OUTSIDE RECORDS SUMMARY | 2025-08-19 12:45 | XMS_ITS | Encounter Summary ---
Author Organization [facility] Address [address] [place] [address] Care Team Providers Care Food Service Worker Name Role Phone Unavailable Primary Care Provider Unavailabl e Encounter Details Date Type Department Care Team (Latest Contact Info) Description 01/20/2004 Outpatient [facility] [address] [place] [phone] Cole Thompson MD [address] [place] [address] JOINT PAIN-UNSPEC (Primary Dx) Social History Tobacco Use Types Packs/Day Years Used Date Smoking Tobacco: Never Assessed Comments Unknown Sex and Gender Information Value Date Recorded Sex Assigned at Not on file 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
--- OUTSIDE RECORDS SUMMARY | 2025-08-19 12:45 | XMS_ITS | Encounter Summary ---
Author Organization [facility] Address [address] [place] [address] Care Team Providers Care Assessment Counselor Name Role Phone Unavailable Primary Care Provider Unavailabl e Encounter Details Date Type Department Care Team (Latest Contact Info) Description 01/20/2004 Outpatient [facility] [address] [place] [phone] Cole Thompson MD [address] [place] [address] JOINT PAIN-UNSPEC (Primary Dx); OTHER MALAISE AND FATIGUE Social History Tobacco Use Types Packs/Day Years Used Date Smoking Tobacco: Never Assessed Comments Unknown Sex and Gender Information Value Date Recorded Sex Assigned at Not on file 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
--- OUTSIDE RECORDS SUMMARY | 2025-08-19 12:45 | XMS_ITS | Encounter Summary ---
Author Organization [facility] Address [address] [place] [address] Care Team Providers Care Hand Outside Cutter Name Role Phone Unavailable Primary Care Provider Unavailabl e Encounter Details Date Type Department Care Team (Late st Contact Info) Description 04/14/2018 Lab Requisition [facility] Laboratory Services [place] [address] [place] [phone] Itz Marquez, DO NO ADDRESS ON FILE Social History Tobacco Use Types Packs/Day Years Used Date Smoking Tobacco: Never Assessed Comments Unknown Sex and Gender Information Value Date Recorded Sex Assigned at Not on file 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 Gender Identity Not on file Sexual Orientation Not on file documented as of this encounter Plan of Treatment Not on file documented as of this encounter Procedures Procedure Name Priority Date/Time Associated Diagnosis Comments SEDIMENTATION RATE Routine 04/14/2018 8: 40 PM CDT C-REACTIVE PROTEIN Routine 04/14/2018 8: 40 PM CDT ANHTONY SCREEN W/REFLEX Routine 04/14/2018 8 :40 PM CDT TSH Routine 04/14/2018 8:40 PM CDT documented in this encounter Results * ANTHONY SCREEN W/REFLEX (04/14/2018 8:40 PM CDT) ANTHONY SCREEN Negative Negative 04/16/2018 1:11 PM CDT [facility] Blood Collection / Unknown 04/14/2018 8:40 PM CDT 04/14/2018 10:59 PM CDT us Itz Marquez DO CHEMISTRY ORDERABLES Final Resu lt Performing Organization Address [facility]/ZIP Co de Phone Number [facility] CLIA# [id number] [facility] [place], [place] [address] * SEDIMENTATION RATE (04/14/2018 8:40 PM CDT) ESR (SEDIMENTATION RATE) 9 0 - 30 mm/Hr 04/14/2018 11:56 PM CDT [facility] Blood Collection / Unknown 04/14/2018 8:40 PM CDT 04/14/2018 11:02 PM CDT us Itz Marquez DO HEMATOLOGY ORDERABLES Final Res ult Performing Organization Address [facility] Co de Phone Number [facility] CLIA # [id number] [address] [place] [id number] * C-REACTIVE PROTEIN (04/14/2018 8:40 PM CDT) CRP 2.4 <5.0 mg/L 04/14/2018 11:48 PM CDT [facility] Blood Collection / Unknown 04/14/2018 8:40 PM CDT 04/14/2018 11:02 PM CDT us Itz Marquez DO CHEMISTRY ORDERABLES Final Resu lt Performing Organization Address [facility] Co de Phone Number [facility] CLIA # [id number] [address] [place] [address] * (ABNORMAL) TSH (04/14/2018 8:40 PM CDT) TSH 6.40(H) 0.27 - 4.20 uIU/mL 04/14/2018 11:31 PM CDT [facility] Blood Collection / Unknown 04/14/2018 8:40 PM CDT 04/14/2018 11:02 PM CDT us Itz Marquez DO CHEMISTRY ORDERABLES Final Resu lt [facility] CLIA # [id number] [address] [place] [address] documented in this encounter Visit Diagnoses Not on filedocumented in this encounter
--- OUTSIDE RECORDS SUMMARY | 2025-08-19 12:45 | XMS_ITS | Encounter Summary ---
Author Organization [facility] Address [address] [place] [address] Care Team Providers Care Student Services Counselor Name Role Phone Unavailable Primary Care Provider Unavailabl e Reason for Referral * Outpatient Services (Routine) - Closed Specialty Diagnoses / Procedures Referred By Contac t Referred To Contact Diagnoses Chest pain, unspecified type Abnormal ECG History of anterior wall myocardial infarction Procedures STRESS TEST, EXERCISE TREADMILL Itz Marquez DO Referral ID Status Reason Start Date Expiration Date Visits Re quested Visits Authorized [id number] Closed 04/25/2018 05/26/2019 1 1 Encounter Details Date Type Department Care Team (Latest Contact Info) Description 04/25/2018 Ancillary Orders [facility] External Department [address] [place] [phone] Itz Marquez DO NO ADDRESS ON FILE Chest pain, unspecified type; Abnormal ECG; History of anterior wall myocardial infarction Social History Tobacco Use Types Packs/Day Years Used Date Smoking Tobacco: Never Assessed Comments Unknown Sex and Gender Information Value Date Recorded Sex Assigned at Not on file 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 Abnormal stress test by ECG criteria suggesting possible ischemia. 2. Negative for exercise-induced chest pain. 3. Good exercise capacity with normal hemodynamic response to exercise. 4. Overall, Low risk study for cardiac events. 5. Consider repeat stress test with myocardial perfusion imaging. Narrative INTERFACE SYSTEM - 05/03/2018 11:15 AM CDT Exam: STRESS TEST, EXERCISE TREADMILL Date/Time of Exam: 05/02/2018 10:34 AM Reason For Exam: Chest pain, unspecified type; abnormal ECG; history of anterior wall myocardial infarction.. Procedure: The patient exercised according to the Fransico protocol completing 10 minutes and 16 seconds, achieving an estimated workload of 12.2 METS. The heart rate was 57 beats per minute at baseline and increased to 146 beats per minute at peak exercise, which was 88% of the maximum predicted target heart rate. The blood pressure was 138/82 mm Hg at baseline and 138/70 mm Hg at peak exercise, demonstrating a normal response to exercise. The patient developed leg fatigue and shortness of breath during the procedure. Infrequent PACs were noted throughout the exam. The baseline electrocardiogram showed sinus bradycardia with possible old septal infarct and poor R wave progression. The electrocardiographic response to exercise demonstrated visual horizontal ST segment depressions of 1 mm in the lateral leads with equivocal abnormal horizontal ST segment depressions in the inferior leads as well. The smith treadmill score is equal to +5. Procedure Note Skinny Ferreira MD - 05/03/2018 Exam: STRESS TEST, EXERCISE TREADMILL Date/Time of Exam: 05/02/2018 10:34 AM Reason For Exam: Chest pain, unspecified type; abnormal ECG; history of anterior wall myocardial infarction.. Procedure: The patient exercised according to the Fransico protocol completing 10 minutes and 16 seconds, achieving an estimated workload of 12.2 METS. The heart rate was 57 beats per minute at baseline and increased to 146 beats per minute at peak exercise, which was 88% of the maximum predicted target heart rate. The blood pressure was 138/82 mm Hg at baseline and 138/70 mm Hg at peak exercise, demonstrating a normal response to exercise. The patient developed leg fatigue and shortness of breath during the procedure. Infrequent PACs were noted throughout the exam. The baseline electrocardiogram showed sinus bradycardia with possible old septal infarct and poor R wave progression. The electrocardiographic response to exercise demonstrated visual horizontal ST segment depressions of 1 mm in the lateral leads with equivocal abnormal horizontal ST segment depressions in the inferior leads as well. The smith treadmill score is equal to +5. Impression: 1. Abnormal stress test by ECG criteria suggesting possible ischemia. 2. Negative for exercise-induced chest pain. 3. Good exercise capacity with normal hemodynamic response to exercise. 4. Overall, Low risk study for cardiac events. 5. Consider repeat stress test with myocardial perfusion imaging. Itz Marquez DO NM ORDERABLES Final Result INTERFACE SYSTEM Refer to clinic/hospital department documented in this encounter Visit Diagnoses Diagnosis Chest pain, unspecified type Abnormal ECG Nonspecific abnormal electrocardiogram (ECG) (EKG) History of anterior wall myocardial infarction Chest pain, unspecified type Abnormal ECG Nonspecific abnormal electrocardiogram (ECG) (EKG) History of anterior wall myocardial infarction documented in this encounter
--- NOTE | 2025-08-19 12:53 | ED_ITS ---
HPI - Nausea/Vomiting/Diarrhea 2 General: Chief complaint: Nausea/Vomiting/Diarrhea Stated complaint: Diarrhea / Confusion Time Seen by Provider: 08/19/25 11:26 History of Present Illness: 59-year-old female presents emergency ro om complaining of loose stools and also having had recently been treated for C. difficile. She has has hemorrhoids as well so she has had some increased bleeding from the hemorrhoids they have been irritated by the diarrhea. Additionally she is very concerned by what she describes as a transverse colon hernia she is worried that it will twist and would kill her. No fever sweats or chills. No dysuria urgency or frequency. Associated nausea: Yes Associated symtoms: Reports nausea; Denies chest pain or dysuria Related Data Home Medications ?Medication ?Instructions ?Recorded ?Confirmed latanoprost 0.005 % eye drops, 1 drp ophthalmic (eye) QPM 04/09/24 08/19/25 emulsion levothyroxine 75 mcg tablet 75 mcg PO QAM 04/21/2401/08 losartan 100 mg tablet 100 mg PO BID 04/21/2408/19 vancomycin 125 mg capsule 125 mg PO QID 08/19/2508/19 Previous Rx's ?Medication ?Instructions ?Recorded hydrocortisone 2.5 % topical cream 1 applic LA BID PRN hemorrhoids 09/03/24 with perineal applicator #30 grams (Procto-Med ) pantoprazole 40 mg tablet,delayed 40 mg PO DAILY #90 t abs 05/05/25 release prednisone 5 mg tablet 5 mg PO DAILY #90 tabs 05/05 diazepam 5 mg tablet 5 mg PO BID PRN anxiety #60 tabs 06/23/25 trazodone 100 mg tablet 100 mg PO .qhs #30 tabs 10/0 05/10 lactulose 10 gram/15 mL oral 30 ml PO Q2H PRN constipa tion 72 08/19/25 solution (Generlac) hours #1,080 mL Allergies Allergy/AdvReac Type Severity Reaction Status Date / Time albuterol Allergy ADR-Headach Verified 08/19/25 11:21 e aspirin Allergy Feels Like Verified 08/19/25 11:21 Brain Bleeds codeine Allergy ADR-Headach Verified 08/19/25 11:21 e Ipratropium Analogues Allergy ADR-Headach Verified 08/19/25 11:21 e Review of Systems 2 Const: Denies: fever(s) or chills Card: Denies: chest pain Resp: Denies: dyspnea GI: Reports: abdominal pain, nausea and diarrhea : Denies: dysuria, urinary frequency or urinary urgency Musc: Denies: neck pain or back pain Skin/Breast: Denies: rash PFSH ED 2 PFSH: Medical History Hypokalemia Seronegative rheumatoid arthritis of both hands Immunization counseling High risk medication use Inflammatory arthritis Positive ANTHONY (antinuclear antibody) Psychiatric care Attention-deficit hyperactivity disorder, predominantly inattentive type Nicotine dependence, cigarettes, uncomplicated Panic disorder [episodic paroxysmal anxiety] Generalized anxiety disorder Post-traumatic stress disorder, chronic Social History Smoking and tobacco/nicotine status: current every day tobacco/nicotine user (1ppd for over 40 years) cigarettes Packs smoked per day: 1 Years cigarettes smoked: 44 Quit status (tobacco/nicotine): has tried quititng Number of times tried to quit tobacco: 1 Second hand smoke exposure: Yes Alcohol intake: former Substance/Drug Use: never Lives independently: Yes Household members: spouse Housing: House Marital status: service: No Current occupational status: unemployed Pets and animals: Yes Do you think of yourself as: Straight/Heterosexual Current gender identity: Female Physical Exam 2 Const: GENERAL APPEARANCE: cooperative ORIENTATION/CONSCIOUSNESS: Yes awake, Yes oriented to person, Yes oriented to place and Yes oriented to time HENMT: COMMON NORMALS: normocephalic, atraumatic and hearing grossly normal bilaterally HEAD & SCALP: normocephalic and atraumatic Resp: COMMON NORMALS: normal respiratory effort, No retractions, No use of accessory muscles and clear to auscultation bilaterally AUSCULTATION: clear to auscultation bilaterally Cardio: COMMON NORMALS: regular rate, regular rhythm and No murmurs present (Cardio) RATE: regular rate RHYTHM: regular rhythm GI: COMMON NORMALS: No hepatosplenomegaly present AUSCULTATION: Yes normoactive bowel sounds PALPATION: Yes Tenderness to palpation present (GI) (Epigastric), No Guarding due to palpation present (GI) and Yes No hepatosplenomegaly present OTHER: Rectus diastasis of the epigastric region. Patient has little to no subcutaneous fat to the musculature is easily identified as it is the defect. It is close there is no bulging with Valsalva maneuver. Extremity: COMMON NORMALS: normal to inspection, capillary refill normal, no clubbing, cyanosis or edema, no calf tenderness and no pedal edema Neuro: SENSORIUM/ORIENTATION: Yes oriented to person, Yes oriented to place and Yes oriented to time Skin: COMMON NORMALS: no rashes or lesions noted GENERAL SKIN EXAM: no rashes or lesions noted Course 2 Vital Signs: Vital signs: Vital Signs Temperature 98.0 F 08/19/25 11:15 Pulse Rate 66 08/19/25 13:00 Respiratory Rate 16 08/19/25 13:00 Blood Pressure 153/83 08/19/25 11:15 Pulse Oximetry 97 08/19/25 13:00 Oxygen Delivery Me thod Room Air 08/19/25 13:00 MDM - Nausea/Vomiting/Diarrhea Medical Decision Making Medical decision making Social determinants: Patient is having cognitive decline noted by the family over the last month they are assisting with her care I reviewed the patient's medical record. I reviewed the patient's current home meds. Alternate historians: Family members at the bedside Differential diagnosis: Cognitive decline, C. difficile, uncal paresis Lab Review: Labs reviewed on the chart CBC and CMP show no clinically significant findings. Lactic acid is also normal Imaging: CT of the abdomen shows significant amount of retained stool particular in the transverse colon but there is no evidence of obstruction Assessment of risk Level of risk: Moderate Hospitalization considerations: On initial evaluation potential for hospitalization pending workup if patient has signs of megacolon or obstruction. Reexamination: Stable and unchanged Assessment and plan: Patient is complaining of continued diarrhea based on the CT results of the she is having encopresis. She has a large amount of retained stool she is fixated on the possibility of her transverse colon. Coming through what she believes is a hernia in her abdominal wall she appears to have a rectus diastasis of the upper rectus muscles. However I am not able to get any significant protrusion of any intra-abdominal contents with Valsalva maneuver. Recommend patient use lactulose to relieve the constipation. Discussed with her that she will get a lot of cramping and have significant mount of stool. Discussed findings at length with her and her family members. Offered to refer to GI as well as to infectious disease. At this point she has finished a course of vancomycin for C. difficile she is actually having uncal paresis is reasonable to assume at this point she no longer has an active C. difficile infection. Discussed with her that rechecking it although would likely still yield a positive result as it remained positive for several weeks after she has had an infection that was treated. Patient declined offers for referrals. Lab Data 08/19/25 11:37 08/19/25 11:37 Radiology Impressions Abdomen/Pelvis CT 08/19/25 11:41 IMPRESSION: 1. Fecal retention with a few air-fluid levels worse in the transverse colon but no evidence of high-grade obstruction or significant bowel wall thickening. 2. Small bowel is normal in appearance. 3. Urine distended bladder. 4. Hepatomegaly with coarse hepatic parenchymal enhancement. Recommend correlation with liver function tests. Gallbladder appears normal. 5. No other acute findings. Laboratory Results WBC 7.93 10^3/uL (3.29-11.43) 08/19/25 11:37 RBC 4.40 10^6/uL (3.85-5.65) 08/19/25 11:37 Hgb 13.70 g/dL (11.27-16.99) 08/19/25 11:37 Hct 40.5 % (36-47) 08/19/25 11:37 MCV 92.0 fl (85-98) 08/19/25 11:37 MCH 31.1 pg (27-33) 08/19/25 11:37 MCHC 33.8 g/dL (30-55) 08/19/25 11:37 RDW 13.7 % (12.1-15.1) 08/19/25 11:37 Plt Count 247 10^3/cmm (157-399) 08/19/25 11:37 MPV 8.9 fL (7.4-10.4) 08/19/25 11:37 Neut % (Auto) 71.8 % 08/19/25 11:37 Lymph % (Auto) 22.2 % 08/19/25 11:37 [place] % (Auto) 5.0 % 08/19/25 11:37 Eos % (Auto) 0.1 % 08/19/25 11:37 Baso % (Auto) 0.6 % 08/19/25 11:37 Neut # (Auto) 5.69 10^3/uL (1.8-7.7) 08/19/25 11:37 Lymph # (Auto) 1.8 10^3/uL (0.8-4.8) 08/19/25 11:37 [place] # (Auto) 0.4 10^3/uL (0.2-0.9) 08/19/25 11:37 Eos # (Auto) 0.0 10^3/uL (0.0-0.8) 08/19/25 11:37 Baso # (Auto) 0.1 10^3/uL (0.0-0.1) 08/19/25 11:37 Nucleated RBC % (auto) 0 % 08/19/25 11:37 Nucleated RBCs # 0.0 /100WBC 08/19/25 11:37 Sodium 135 mmol/L (136-145) L 08/19/25 11:37 Potassium 4.0 mmol/L (3.5-5.1) 08/19/25 11:37 Chloride 99 mmol/L (98-107) 08/19/25 11:37 Carbon Dioxide 24 mmol/L (22-29) 08/19/25 11:37 Anion Gap 16.0 (5-19) 08/19/25 11:37 BUN 19 mg/dL (8-23) 08/19/25 11:37 Creatinine 0.8 mg/dL (0.5-0.9) 08/19/25 11:37 GFR Calculation 72.9 mL/min (90-130) L 08/19/25 11:37 Glucose 102 mg/dL (65-115) 08/19/25 11:37 Calculated Osmolality 282 mOsm/kg (285-295) L 08/19/25 11:37 Lactic Acid 1.8 mmol/L (0.5-2.2) 08/19/25 11:37 Calcium 9.0 mg/dL (8.5-10.5) 08/19/25 11:37 Total Bilirubin 0.3 mg/dL (0.15-1.2) 08/19/25 11:37 AST 18 U/L (0-32) 08/19/25 11:37 ALT 14 U/L (0-33) 08/19/25 11:37 Alkaline Phosphatase 58 U/L (35-105) 08/19/25 11:37 Total Protein 6.7 g/dL (6.6-8.7) 08/19/25 11:37 Albumin 4.6 g/dL (3.5-5.2) 08/19/25 11:37 Globulin 2.1 g/dL (1.3-4.6) 08/19/25 11:37 Lipase 45 U/L (13-60) 08/19/25 11:37 Urine Color Yellow (Yellow) 08/19/25 14:37 Urine Appearance Clear (CLEAR) 08/19/25 14:37 Urine pH 5.5 (5-7) 08/19/25 14:37 Ur Specific [place] 1.018 (1.005-1.030) 08/19/25 14:37 Urine Protein Negative (Negative) 08/19/25 14:37 Urine Glucose (UA) Negative (Normal) 08/19/25 14:37 Urine Ketones Negative (Negative) 08/19/25 14:37 Urine Blood Negative (Negative) 08/19/25 14:37 Urine Nitrate Negative (Negative) 08/19/25 14:37 Urine Bilirubin Negative (Negative) 08/19/25 14:37 Urine Urobilinogen 0.2 mg/dL (Negative) 08/19/25 14:37 Ur Leukocyte Esterase Negative (Negative) 08/19/25 14:37 Urine RBC 0-2 /hpf (0-2) 08/19/25 14:37 Urine WBC 0-5 /hpf (0-5) 08/19/25 14:37 Ur Squamous Epith Cells 0-5 /hpf (0-5) 08/19/25 14:37 Amorphous Sediment Not Reportable 08/19/25 14:37 Urine Bacteria None seen /hpf (NONE) 08/19/25 14:37 Hyaline Casts 0-4 /lpf H 08/19/25 14:37 All radiology interpretation(s) finalized by discharge Discharge Plan Discharge Patient Disposition: Home Clinical Impression: Encopresis, Hx of Clostridium difficile infection, Rectus diastasis Condition: Stable Prescriptions: New lactulose [Generlac] 10 gram/15 mL solution 30 ml PO Q2H PRN (Reason: constipation) 3 Days Qty: 1080 0RF Rx Instructions: until desired laxative effect No Action trazodone 100 mg tablet 100 mg PO .qhs Qty: 30 2RF diazepam 5 mg tablet 5 mg PO BID PRN (Reason: anxiety) Qty: 60 2RF latanoprost 0.005 % drops, emulsion 1 drp ophthalmic (eye) QPM pantoprazole 40 mg tablet,delayed release (DR/EC) 40 mg PO DAILY Qty: 90 1RF prednisone 5 mg tablet 5 mg PO DAILY Qty: 90 1RF levothyroxine 75 mcg tablet 75 mcg PO QAM losartan 100 mg tablet 100 mg PO BID hydrocortisone [Procto-Med HC] 2.5 % cream with perineal applicator 1 applic LA BID PRN (Reason: hemorrhoids) Qty: 30 0RF vancomycin 125 mg capsule 125 mg PO QID Discharge Orders: Discharge ED (Routine); Ordered 08/19/25 Ordered By: Josh Evans Referrals: John Barroso MD [Primary Care Provider, Family Practice] Patient Instructions: Encopresis (DC), Opioid Safety, Pain Management, Patient Portal & [place] Instructions Activity Restrictions/Additional Instructions: [facility] you [facility] your healthcare needs today. It is very important that you follow up as instructed or that you return to the Emergency Department should you have concerns or if your condition changes or worsens in any way. Emergency department visits are focused on emergent conditions, in some cases you may require further evaluation on an outpatient basis. You were seen in the emergency room with complaints of abdominal pain cramping and diarrhea. CT shows a significant amount of retained stool particular in the transverse colon. There is no sign of obstruction in the bowel and no acute pathology noted. Given the degree of retained stool the CT if infection does not appear to be an acute issue at this time. Would not recommend further antibiotics. Would recommend laxatives to relieve the significant constipation. When patients become constipated to the point of passing liquid stool around solid stool boluses this is called encopresis. We had offered referrals to outpatient physicians to continue to help you with this problem you declined would recommend that you follow-up with your primary care doctor sometime within the next week. (Please note that included in your discharge packet is information concerning opioid safety and pain management. This information is given to all patients were discharged from the ER regardless of their discharge diagnosis or the medicines they usually take or are prescribed.) Print Language: Estonian Coding Level of Care Code ED Cutting Table Operator for Chg Fwd
[2025-08-19 13:00] VITALS: PULSE 66; RESP 16; O2SAT 97
[2025-08-19] MEDS: iohexol 350 mg/mL 500 mL Btl (per mL) IV (13:10)
[2025-08-19 15:05] LABS: Glucose Urine UA Negative (Normal); Nitrate Urine Negative (Negative); Specific Gravity, Urine 1.018 (1.005-1.030)
[2025-08-19 15:10] LABS: Add Urine Microscopic? YES
== END 2025-08-19 16:31 | disposition home or self-care (01) ==
PROVIDERS: Emergency Provider Family Medicine; PCP Family Medicine
DX: R15.9 Full incontinence of feces (principal); M62.08 Separation of muscle (nontraumatic), other site; Z86.19 Personal history of other infectious and parasitic diseases; F17.210 Nicotine dependence, cigarettes, uncomplicated
CPT/HCPCS: 36415; 51798; 74177; 80053; 81001; 83605; 83690; 85025; 87040; 93005; 96360; 99285; J7030

== ENCOUNTER 2025-08-23 15:42 | Outpatient (CLI) | payer OTHER, SELFPAY ==
--- NOTE | 2025-08-23 15:48 | XR_ITS ---
WS: [id number] XR acute abdomen series [id number] REASON FOR EXAM: CONFUSION, LOOSE STOOLS, HYPONATREMIA FINDINGS: The lungs are significantly hyperexpanded. No acute chest abnormality. No free air or retroperitoneal air. There is mild gaseous distention of the splenic flexure and proximal transverse colon. There are gas-filled segments of small bowel without significant distention. The significant fecal retention demonstrated on the previous CT scan of 08/19/2025 is not apparent on this examination. Hepatomegaly (confirmed by previous CT scan 08/19/2025.) XR/XR acute abdomen series [id number] IMPRESSION: Presumed resolution of previous significant colonic fecal retention. Hepatomegaly.
== END 2025-08-23 15:43 | disposition home or self-care (01) ==
LOC: RAD 15:44
PROVIDERS: PCP Family Medicine; Visit Provider Family Medicine
DX: R41.0 Disorientation, unspecified (principal); E87.1 Hypo-osmolality and hyponatremia; R19.7 Diarrhea, unspecified
CPT/HCPCS: 74022